=== PATIENT | female | born 1930 | race Caucasian/White ===

== ENCOUNTER 2017-12-18 05:22 | Emergency (ER) | payer OTHER, BC ==
[2017-12-18 06:07] VITALS: TEMP 100; BMI 30.4
--- NOTE | 2017-12-18 06:12 | PDOC ---
History of Present Illness - General History Source: Patient Exam Limitations: No Limitations - History of Present Illness Initial Comments: 12/18/17 06:24 The patient is a 87 year old female with a significant PMH of diabetes, hypertension,COPD, pneumonia, legally blind, leukemia, and mastectomy who presents to the emergency department with persistent wheezing and coughing for 3 days. The patient reports that her coughing and wheezing began on sunday. She states that it is worsened at night. She reports that her cough is productive and she experiences associated chest pain. The patient denies any smoking. She denies any shortness of breath, headache and dizziness. She denies fever, chills, nausea, vomit, diarrhea,constipation or urinary symptoms. The patient denies any other complaints. PCP: Dr. Morgan <Misael Curiel - Last Filed: 12/18/17 06:25> <Thomas Heart - Last Filed: 12/18/17 07:08> - General Chief Complaint: Cold Symptoms Stated Complaint: COUGHING Time Seen by Provider: 12/18/17 06:07 Past History <Misael Curiel - Last Filed: 12/18/17 06:25> - Past Medical History Anemia: No Asthma: No Cancer: Yes (RT BREAST; LEUKEMIA) CVA: No COPD: No CHF: Yes Dementia: No Diabetes: Yes GI Disorders: No Disorders: No HTN: Yes Hypercholesterolemia: Yes Liver Disease: No Seizures: No Thyroid Disease: No - Surgical History Abdominal Surgery: No Appendectomy: No Cardiac Surgery: Yes ("STENT PLACED AND THEN REMOVED") Cholecystectomy: Yes Lung Surgery: No Neurologic Surgery: No Orthopedic Surgery: No - Suicide/Smoking/Psychosocial Hx Smoking Status: No Smoking History: Never smoked Have you smoked in the past 12 months: No Number of Cigarettes Smoked Daily: 0 Hx Alcohol Use: No Drug/Substance Use Hx: No Substance Use Type: None Hx Substance Use Treatment: No <Thomas Heart - Last Filed: 12/18/17 07:08> - Past Medical History Allergies/Adverse Reactions: Allergies Allergy/AdvReac Type Severity Reaction Status Date / Time aspirin Allergy "FACIAL Verified 06/06/16 15:23 SWELLING" Home Medications: Ambulatory Orders Cholecalciferol (Vitamin D3) [Vitamin D3 -] 1,000 unit PO DAILY 12/18/17 Cyanocobalamin (Vitamin B-12) [Vitamin B-12] 1,000 mcg PO DAILY 12/18/17 Furosemide [Lasix] 20 mg PO DAILY 12/18/17 Metformin HCl 500 mg PO DAILY 12/18/17 Metoprolol Tartrate 25 mg PO BID 12/18/17 Simvastatin 40 mg PO DAILY 12/18/17 Review of Systems - Review of Systems Able to Perform ROS?: Yes Comments:: 12/18/17 06:24 Constitutional: No recent illness; no fever ENT: No sore throat Cardiovascular: No palpitations; no chest pain Pulmonary: (+)cough, wheezing . no trouble breathing Gastrointestinal: No nausea; no vomiting; no diarrhea Genitourinary: No urinary problems; no hematuria Skin: No rash Lymph system: No swollen glands Musculoskeletal: No joint swelling Neurological: No weakness; oo numbness; No Headache; no vertigo; no lightheadedness Psychiatric:No anxiety; no depression ROS: A complete review of 10 out of 10 review of systems is taken and is negative apart from what is previously mentioned below and in the HPI. <Misael Curiel - Last Filed: 12/18/17 06:25> *Physical Exam - Vital Signs Last Vital Signs Temp Pulse Resp BP Pulse Ox 100.0 F H 78 19 160/98 99 12/18/17 06:03 12/18/17 06:03 12/18/17 06:03 12/18/17 06:03 12/18/17 06:03 - Physical Exam Comments: 12/18/17 06:24 Vitals: Triage vital signs reviewed General Appearance: No acute distress, well nourished, well developed Chest Wall: Nontender Cardiac: Regular rate and rhythm, no murmurs, no rubs, no gallops Lungs: (+)bilateral and expiratory wheezing, good air movement bilaterally Abdomen: Soft, nondistended, normal bowel sounds, nontender to palpation Genitourinary: Rectal: Exam deferred Extremities: Full range of motion to all extremities, no cyanosis, clubbing, or edema Skin: Warm and dry, no rashes or lesions, no rash, no petechiae Neuro: AOX3; Cranial Nerves 2-12 grossly intact, Strength intact to all extremities, Sensation intact to all extremities, gait normal Psych: Normal mood, normal affect <Misael Curiel - Last Filed: 12/18/17 06:25> - Vital Signs Last Vital Signs Temp Pulse Resp BP Pulse Ox 100.0 F H 78 19 160/98 99 12/18/17 06:03 12/18/17 06:03 12/18/17 06:03 12/18/17 06:03 12/18/17 06:03 <Thomas Heart - Last Filed: 12/18/17 07:08> Heart Score/ECG Review - ECG Impressions Comment:: 12/18/17 07:03 EKG performed at 6:17 AM. Demonstrates sinus rhythm [address] elevations no T-wave inversions. Interpreted by me. <Thomas Heart - Last Filed: 12/18/17 07:08> ED Treatment Course - LABORATORY CBC & Chemistry Diagram: 12/18/17 06:44 12/18/17 06:44 <Thomas Heart - Last Filed: 12/18/17 07:08> Medical Decision Making - Medical Decision Making 12/18/17 06:25 The patient is a 87 year old female with a significant PMH of diabetes, hypertension,COPD, pneumonia, legally blind, leukemia, and mastectomy who presents to the emergency department with persistent wheezing and coughing for 3 days. The patient reports that her coughing and wheezing began on sunday. She states that it is worsened at night. She reports that her cough is productive and she experiences associated chest pain. The patient denies any smoking. She denies any shortness of breath, headache and dizziness. She denies fever, chills, nausea, vomit, diarrhea,constipation or urinary symptoms. The patient denies any other complaints. The patient will get bloodwork, EKG, and breathing treatment <Misael Curiel - Last Filed: 12/18/17 06:25> - Medical Decision Making History and examination consistent with wheezy bronchitis. Given age and risk factors we'll check an EKG troponin treatment DuoNeb's obtain a chest x-ray observe and reassess Dr. Block to follow-up results reassess patient and dispo, signout 7 AM. <Thomas Heart - Last Filed: 12/18/17 07:08> *DC/Admit/Observation/Transfer - Attestations Scribe Attestion: 12/18/17 06:25 Documentation prepared by Misael Curiel, acting as medical office technology instructor for Thomas Heart MD. <Misael Curiel - Last Filed: 12/18/17 06:25> - Discharge Dispostion Decision to Admit order: No <Thomas Heart - Last Filed: 12/18/17 07:08> Diagnosis at time of Disposition: Wheezing - Discharge Dispostion Condition at time of disposition: Stable - Referrals Referrals: Wilbert Morgan MD [Primary Care Provider] - - Patient Instructions - Post Discharge Activity
[2017-12-18] MEDS ORDERED: ALBUTEROL SO4 2.5/IPRATROPIUM 0.5 INH SOL 3 ML VIAL.NEB. NEB ONE ×2 (06:31→06:48)
[2017-12-18 07:03] LABS: BASO % 0.4 % (0-2.0); EOS % 0.3 % (0-4.5); HEMATOCRIT 38.8 % (32.4-45.2); HEMOGLOBIN 12.8 GM/dL (10.7-15.3); LYMPH % 68.6 % (8-40); MCH 29.9 pg (25.7-33.7); MCHC 32.9 g/dl (32.0-36.0); MEAN CELL VOLUME 90.9 fl (80-96); MONO % 2.4 % (3.8-10.2); NEUT % 28.3 % (42.8-82.8); PLATELET COUNT 162 K/MM3 (134-434); RBC 4.26 M/mm3 (3.60-5.2); WHITE BLOOD COUNT 19.5 K/mm3 (4.0-10.0)
[2017-12-18 07:29] LABS: ANION GAP 7 (8-16); BLOOD UREA NITROGEN 18 mg/dL (7-18); CALCIUM 8.9 mg/dL (8.5-10.1); CHLORIDE 105 mmol/L (98-107); CO2 26 mmol/L (21-32); GLUCOSE,RANDOM 141 mg/dL (74-106); POTASSIUM 4.4 mmol/L (3.5-5.1); SODIUM 138 mmol/L (136-145)
[2017-12-18 07:35] LABS: CREATININE 1.1 mg/dL (0.55-1.02)
--- NOTE | 2017-12-18 08:50 | PDOC ---
*Physical Exam - Vital Signs Last Vital Signs Temp Pulse Resp BP Pulse Ox 100.0 F H 78 19 160/98 99 12/18/17 06:03 12/18/17 06:03 12/18/17 06:03 12/18/17 06:03 12/18/17 06:03 - Physical Exam Comments: 12/18/17 08:45 Temp 98.6, O2 sat 100% on room air Seated comfortably in chair, ambulating around the emergency room, speaking full sentences, no acute distress. Very well-appearing, younger than stated age Left eye glaucoma Lungs are clear, wheezing has resolved, good air entry without accessory muscle use, no focally decreased breath sounds or prolonged expiration ED Treatment Course - LABORATORY CBC & Chemistry Diagram: 12/18/17 06:44 12/18/17 06:44 - ADDITIONAL ORDERS Additional order review: Laboratory Results 12/18/17 06:44 Sodium 138 Potassium 4.4 Chloride 105 Carbon Dioxide 26 Anion Gap 7 L BUN 18 Creatinine 1.1 H Random Glucose 141 H Calcium 8.9 Troponin I < 0.02 12/18/17 06:44 RBC 4.26 D MCV 90.9 MCHC 32.9 RDW 14.0 D MPV 9.0 Neutrophils % 28.3 L D Lymphocytes % 68.6 H D Monocytes % 2.4 L Eosinophils % 0.3 D Basophils % 0.4 - Medications Given in the ED: ED Medications Discontinued Medications Generic Name Dose Route Start Last Admin Trade Name Freq PRN Reason Stop Dose Admin Albuterol/Ipratropium 1 amp 12/18/17 06:31 12/18/17 06:51 Duoneb - NEB 12/18/17 06:32 1 amp ONCE ONE Administration Medical Decision Making - Medical Decision Making 12/18/17 08:46 87-year-old female with history of COPD and episodes of pneumonia presents with URI symptoms for 3 days consisting of nasal rhinorrhea, sneezing, nonproductive cough with some wheezing at night. No fevers or chills, no dyspnea, no chest pain. She was mostly frustrated with her cough keeping her up at night so she presented today for evaluation. Evaluated by prior shift, CBC notable for white count of 19, but this is her baseline given her leukemia. Chemistry are within normal limits including troponin. Chest x-ray is negative for acute infiltrate. The patient was treated with a nebulizer and feels much better, her wheezing has resolved. Given her normal vital signs, improved state, and baseline well- appearing with baseline labs, patient prefers to go home and is a candidate for outpatient treatment. Given her history of pneumonias Will treat empirically with a Z-Carlos, will give Medrol Dosepak given the wheezing and history of COPD and presumed diagnosis of viral URI with mild COPD exacerbation. Patient sees Dr. Morgan, will be able to follow-up with him later this week, and understands strict return criteria. *DC/Admit/Observation/Transfer Diagnosis at time of Disposition: Wheezing, Viral upper respiratory infection, COPD exacerbation - Discharge Dispostion Disposition: HOME Condition at time of disposition: Improved - Prescriptions Prescriptions: Azithromycin [Zithromax 250mg Tablets -] 250 mg PO UTDICT #6 tab Benzonatate [Tessalon Pearls -] 100 mg PO TID PRN #10 capsule PRN Reason: Cough Methylprednisolone [Medrol Dose Carlos] 4 mg PO ASDIR #21 tablet - Referrals Referrals: Wilbert Morgan MD [Primary Care Provider] - - Patient Instructions Printed Discharge Instructions: DI for Viral Upper Respiratory Infection -- Adult, DI for Acute Bronchitis Additional Instructions: Activity as tolerated. Stay hydrated. Blood tests and a chest x-ray showed no acute abnormalities. Your symptoms are likely due to a viral infection with a slight worsening of her COPD. Take a Z- Carlos as prescribed as an antibiotic, take Medrol Dosepak as prescribed as a steroid. Take Tessalon Perles as prescribed as a cough suppressant, you do not need to take this if it doesn't work. Continue your medications as previously prescribed by your physician. You should follow up with Dr. Morgan as soon as possible and by Sunday at the latest regarding today's emergency department visit. Return to the emergency department for any new or concerning symptoms, particularly fevers or chills, worsening cough or difficulty breathing or lung pain, chest pain, weakness. - Post Discharge Activity
[2017-12-18 08:57] VITALS: BP 159/90; PULSE 85
[2017-12-18 10:44] LABS: PLATELET ESTIMATE NORMAL
--- NOTE | 2017-12-18 12:14 | EKG ---
Test Reason : Blood Pressure : / mmHG Vent. Rate : 084 BPM Atrial Rate : 084 BPM P-R Int : 156 ms QRS Dur : 072 ms QT Int : 376 ms P-R-T Axes : 051 -09 024 degrees QTc Int : 444 ms NORMAL SINUS RHYTHM CANNOT RULE OUT INFERIOR INFARCT , AGE UNDETERMINED ABNORMAL ECG WHEN COMPARED WITH ECG OF 08-JUN-2016 07:10, NO SIGNIFICANT CHANGE WAS FOUND Confirmed by MD GEENA, LEE ([id number]) on 12/18/2017 12:14:21 PM Referred By: Confirmed By:LEE SEAY MD
== END 2017-12-18 08:57 | disposition home or self-care (01) ==
LOC: JER 05:22
PROC: 3E0F7GC Introduction of Other Therapeutic Substance into Respiratory Tract, Via Natural or Artificial Opening (ICD-10-PCS; principal; 2017-12-18)
DX: J44.1 Chronic obstructive pulmonary disease with (acute) exacerbation (principal); J06.9 Acute upper respiratory infection, unspecified; B97.89 Other viral agents as the cause of diseases classified elsewhere; I10 Essential (primary) hypertension; E78.00 Pure hypercholesterolemia, unspecified; E11.9 Type 2 diabetes mellitus without complications; Z79.84 Long term (current) use of oral hypoglycemic drugs; Z85.6 Personal history of leukemia; Z85.3 Personal history of malignant neoplasm of breast; Z90.11 Acquired absence of right breast and nipple
CPT/HCPCS: 36415; 71046-TC-FY; 80048; 84484; 85025; 93005; 93010; 94640; 99282-25; J7620

== ENCOUNTER 2018-04-07 13:03 | Emergency (ER) | payer OTHER, BC ==
[2018-04-07 13:12] VITALS: TEMP 98.2; BMI 30.9
[2018-04-07 14:35] LABS: BASO % 0.3 % (0-2.0); EOS % 0.2 % (0-4.5); HEMATOCRIT 38.8 % (32.4-45.2); LYMPH % 79.7 % (8-40); MCH 30.6 pg (25.7-33.7); MCHC 33.4 g/dl (32.0-36.0); MEAN CELL VOLUME 91.8 fl (80-96); MEAN PLT VOLUME 9.9 fl (7.5-11.1); MONO % 1.8 % (3.8-10.2); PLATELET COUNT 176 K/MM3 (134-434); RBC 4.23 M/mm3 (3.60-5.2); RDW 14.1 % (11.6-15.6); WHITE BLOOD COUNT 16.7 K/mm3 (4.0-10.0)
--- NOTE | 2018-04-07 14:49 | PDOC ---
Attending Attestation - Resident Resident Name: Atilio Echevarria - ED Attending Attestation I have performed the following: I have examined & evaluated the patient, The case was reviewed & discussed with the resident, I agree w/resident's findings & plan, Exceptions are as noted - HPI HPI: 04/07/18 14:45 88-year-old female history of CLL hypertension hyperlipidemia and ureteral stent which was removed prior breast cancer here today complaining of hematuria patient does report mild dysuria has had urinary tract infections however this does not feel severe denies any melena has a history of a prior hysterectomy and no vaginal bleeding. No fevers no chills does not feel lightheaded no back pain that is new or different patient had seen Dr. Wing Hull in the past for her ureteral stent which was removed following in [place] because it had migrated 04/07/18 14:50 - Physicial Exam PE: 04/07/18 14:46 Awake alert no acute distress lungs are clear bilaterally heart is regular without any murmurs rubs or gallops abdomen is soft nontender no CVA tenderness extremities are warm and well-perfused no rash no peripheral edema neurologically patient is alert and oriented 3. 4 extremities speech is clear distally the patient has 2+ symmetric radial and lower extremity pulses - Medical Decision Making 04/07/18 14:47 Differential diagnosis includes UTI, other bladder pathology such as bladder CA , renal cysts, renal colic, anemia, aortic pathology. Plan UA urine culture CBC CMP Focus ED ultrasound renal and aorta were performed indication hematuria Bilateral kidneys scanned into planes. There was bilateral mild hydronephrosis noted bladder was nondistended no wall thickening no masses or intra-vesicular echoes noted. focused ED us Aorta Aorta was scanned in both transverse and longitudinal planes using curvilinear probe. measurements taken of the proximal mid and distal aorta. All measurements were less than 3 cm Impression mild bilateral hydronephrosis, nondistended bladder, no aortic aneurysm
[2018-04-07 15:02] LABS: URINE APPEARANCE CLEAR; URINE BILIRUBIN NEGATIVE (<2.0 mg/dL); URINE GLUCOSE (UA) NEGATIVE (NEGATIVE); URINE KETONE NEGATIVE (NEGATIVE); URINE NITRITE NEGATIVE (NEGATIVE); URINE UROBILINOGEN NEGATIVE mg/dL (0.2-1.0)
[2018-04-07 15:14] LABS: URINE COLOR YELLOW; URINE LEUK ESTERASE 1+ (NEGATIVE); URINE PROTEIN 1+ (NEGATIVE)
[2018-04-07 15:15] LABS: ALK PHOS 72 U/L (45-117); ANION GAP 5 MMOL/L (8-16); BILIRUBIN,TOTAL 0.5 mg/dL (0.2-1); BLOOD UREA NITROGEN 26 mg/dL (7-18); CALCIUM 8.8 mg/dL (8.5-10.1); CHLORIDE 100 mmol/L (98-107); CO2 30 mmol/L (21-32); CREATININE 1.2 mg/dL (0.55-1.3); GLUCOSE,RANDOM 133 mg/dL (74-106); POTASSIUM 4.3 mmol/L (3.5-5.1); SGOT/AST 28 U/L (15-37); SGPT/ALT 19 U/L (13-61); SODIUM 135 mmol/L (136-145); TOT PROT 7.5 g/dl (6.4-8.2)
[2018-04-07 15:24] LABS: URINE BACTERIA MANY /hpf (NONE SEEN)
[2018-04-07 16:49] LABS: ANISOCYTOSIS 0; MACROCYTOSIS 0
[2018-04-07 16:55] LABS: PLATELET ESTIMATE ADEQUATE
--- NOTE | 2018-04-07 17:39 | PDOC ---
History of Present Illness - General Chief Complaint: Urinary Problem Stated Complaint: BLOOD IN URINE Time Seen by Provider: 04/07/18 13:27 Past History - Past Medical History Allergies/Adverse Reactions: Allergies Allergy/AdvReac Type Severity Reaction Status Date / Time aspirin Allergy "FACIAL Verified 04/07/18 13:12 SWELLING" Home Medications: Ambulatory Orders Cholecalciferol (Vitamin D3) [Vitamin D3 -] 1,000 unit PO DAILY 12/18/17 Cyanocobalamin (Vitamin B-12) [Vitamin B-12] 1,000 mcg PO DAILY 12/18/17 Furosemide [Lasix] 40 mg PO DAILY 12/18/17 Metoprolol Tartrate 25 mg PO BID 12/18/17 Simvastatin 40 mg PO DAILY 12/18/17 metFORMIN HCL [Metformin HCl] 500 mg PO DAILY 12/18/17 Anemia: No Asthma: No Cancer: Yes (leukemia and right breast) CVA: No COPD: No CHF: Yes DVT: No Dementia: No Diabetes: Yes GI Disorders: No Disorders: No HTN: Yes Hypercholesterolemia: Yes Liver Disease: No Seizures: No Thyroid Disease: No Other medical history: chronic leukemia and legally blind - Surgical History Abdominal Surgery: No Appendectomy: No Cardiac Surgery: Yes ("STENT PLACED AND THEN REMOVED") Cholecystectomy: Yes Lung Surgery: No Neurologic Surgery: No Orthopedic Surgery: No - Suicide/Smoking/Psychosocial Hx Smoking Status: No Smoking History: Never smoked Have you smoked in the past 12 months: No Number of Cigarettes Smoked Daily: 0 Hx Alcohol Use: No Drug/Substance Use Hx: No Substance Use Type: None Hx Substance Use Treatment: No *Physical Exam - Vital Signs Last Vital Signs Temp Pulse Resp BP Pulse Ox 98.2 F 82 18 146/80 99 04/07/18 13:09 04/07/18 13:09 04/07/18 13:09 04/07/18 13:09 04/07/18 13:09 ED Treatment Course - LABORATORY CBC & Chemistry Diagram: 04/07/18 14:10 04/07/18 13:48 - ADDITIONAL ORDERS Additional order review: Laboratory Results 04/07/18 04/07/18 14:10 13:48 Sodium 135 L Potassium 4.3 Chloride 100 Carbon Dioxide 30 Anion Gap 5 L BUN 26 H Creatinine 1.2 Creat Clearance w eGFR 42.30 Random Glucose 133 H Calcium 8.8 Total Bilirubin 0.5 AST 28 ALT 19 Alkaline Phosphatase 72 Total Protein 7.5 Albumin 4.0 Urine Color Yellow Urine Appearance Clear Urine pH 6.0 Ur Specific [place] 1.003 Urine Protein 1+ H Urine Glucose (UA) Negative Urine Ketones Negative Urine Blood 3+ H Urine Nitrite Negative Urine Bilirubin Negative Urine Urobilinogen Negative Ur Leukocyte Esterase 1+ H Urine WBC (Auto) 11 Urine RBC (Auto) 7 Urine Bacteria Many 04/07/18 14:10 RBC 4.23 MCV 91.8 MCHC 33.4 RDW 14.1 MPV 9.9 Neutrophils % 18.0 L D Lymphocytes % 79.7 H Monocytes % 1.8 L Eosinophils % 0.2 Basophils % 0.3 - RADIOLOGY Radiology Studies Ordered: Category Date Time Status SPIRAL- RENAL-STONE CT [CT] Stat CT Scan 04/07/18 14:13 Completed *DC/Admit/Observation/Transfer Diagnosis at time of Disposition: Hematuria, undiagnosed cause - Discharge Dispostion Disposition: HOME Condition at time of disposition: Good Decision to Admit order: No - Referrals Referrals: Wilbert Morgan MD [Primary Care Provider] - Vangie Lee MD [Staff Physician] - - Patient Instructions Printed Discharge Instructions: DI for Hematuria Additional Instructions: Your urine did not show an obvious infection. Dr. Navarro would like you to follow up with Dr. Lee tomorrow morning (Sunday, Apr 08, 2018) at 9am. Please drink a lot of water. Take all of your home medications as prescribed. No changes have been made in your regimen. Go the nearest emergency department if your condition worsens or you feel like you need additional emergency evaluation. Print Language: KITTITIAN - Post Discharge Activity
[2018-04-07 18:44] VITALS: BP 142/78; PULSE 81
== END 2018-04-07 18:00 | disposition home or self-care (01) ==
LOC: JER 13:03
DX: N13.30 Unspecified hydronephrosis (principal); R30.0 Dysuria; I11.0 Hypertensive heart disease with heart failure; I50.9 Heart failure, unspecified; E11.9 Type 2 diabetes mellitus without complications; Z79.84 Long term (current) use of oral hypoglycemic drugs; E78.00 Pure hypercholesterolemia, unspecified; Z85.3 Personal history of malignant neoplasm of breast; Z85.6 Personal history of leukemia; H54.8 Legal blindness, as defined in USA
CPT/HCPCS: 36415; 74176; 80053; 81003; 81015; 85025; 87086; 87186; 99283-25

== ENCOUNTER 2018-08-22 13:03 | Inpatient (IN) | payer OTHER, BC ==
--- NOTE | 2018-08-22 13:24 | PDOC ---
History of Present Illness - General Chief Complaint: Nausea/Vomiting Stated Complaint: SOB/VOMITING/COUGHING Time Seen by Provider: 08/22/18 13:24 History Source: Patient Exam Limitations: No Limitations - History of Present Illness Initial Comments: 08/22/18 13:26 This is an 88 yo F with PMH of HTN, HLD, IDDM, ODALIS, breast ca s/p mastectomy, HFPEF, CLL, Nephrolithiasis s/p left urethral stent, legally blind, who presents due to sob since last night. symptoms began yesterday morning with a dry cough and progressed to severe cough overnight with sob, wheezing, causing patient to have 1 episode of nbnb vomiting. She is typically NYHA 2-3 but overnight has been NYHA 4. she also experienced several episodes of watery diarrhea. She has associated subjective fever as well as rhinorrhea, h/a and posterior neck pain. SHe denies cp, palpitations, weight gain, peripheral edema , dysuria, abd pain, melena, hematochezia. O2 sat on RA 91% PCP: [facility] Urologist: Jesus 08/22/18 13:52 08/22/18 14:05 Past History - Past Medical History Allergies/Adverse Reactions: Allergies Allergy/AdvReac Type Severity Reaction Status Date / Time aspirin Allergy "FACIAL Verified 08/22/18 13:09 SWELLING" Home Medications: Ambulatory Orders Cholecalciferol (Vitamin D3) [Vitamin D3 -] 1,000 unit PO DAILY 12/18/17 Cyanocobalamin (Vitamin B-12) [Vitamin B-12] 1,000 mcg PO DAILY 12/18/17 Furosemide [Lasix] 40 mg PO DAILY 12/18/17 Metoprolol Tartrate 25 mg PO BID 12/18/17 Simvastatin 40 mg PO DAILY 12/18/17 metFORMIN HCL [Metformin HCl] 500 mg PO DAILY 12/18/17 Anemia: No Asthma: No Cancer: Yes (leukemia and right breast) CVA: No COPD: No CHF: Yes DVT: No Dementia: No Diabetes: Yes GI Disorders: No Disorders: No HTN: Yes Hypercholesterolemia: Yes Liver Disease: No Seizures: No Thyroid Disease: No - Surgical History Abdominal Surgery: No Appendectomy: No Cardiac Surgery: Yes ("STENT PLACED AND THEN REMOVED") Cholecystectomy: Yes Lung Surgery: No Neurologic Surgery: No Orthopedic Surgery: No - Suicide/Smoking/Psychosocial Hx Smoking Status: No Smoking History: Never smoked Have you smoked in the past 12 months: No Number of Cigarettes Smoked Daily: 0 Information on smoking cessation initiated: No Hx Alcohol Use: No Drug/Substance Use Hx: No Substance Use Type: None Hx Substance Use Treatment: No Review of Systems - Review of Systems Able to Perform ROS?: Yes Is the patient limited Bhutanese proficient: No Constitutional: Yes: Fever, Malaise, Weakness. No: Chills HEENTM: Yes: Nose Congestion. No: Tinnitus, Throat Pain Respiratory: Yes: Cough, Shortness of Breath, SOB with Exertion, SOB at Rest, Wheezing. No: Orthopnea, Productive cough, Hemoptysis Cardiac (ROS): No: Chest Pain, Edema, Irregular Heart Rate, Lightheadedness, Palpitations, Syncope ABD/GI: Yes: Diarrhea, Poor Appetite, Vomiting. No: Abdominal Distended, Constipated, Difficulty Swallowing, Nausea, Abdominal cramping : No: Dysuria Musculoskeletal: Yes: Neck Pain. No: Back Pain Neurological: Yes: Headache. No: Numbness, Paresthesia *Physical Exam - Vital Signs Last Vital Signs Temp Pulse Resp BP Pulse Ox 96.0 F L 111 H 18 125/54 L 100 08/22/18 13:07 08/22/18 13:07 08/22/18 13:07 08/22/18 13:08/22/18 13:07 - Physical Exam General Appearance: Yes: Nourished, Appropriately Dressed, Mild Distress. No: Disheveled HEENT: positive: EOMI, Nasal Congestion, Rhinorrhea. negative: EBONY (L eye obstructed by glaucoma ), Normal Voice (interrupted speech due to sob), Scleral Icterus (R), Scleral Icterus (L), Sinus Tenderness Neck: positive: Tender (posterior ), Trachea midline, Supple. negative: Decreased range of motion, Lymphadenopathy (R), Lymphadenopathy (L) Respiratory/Chest: negative: Lungs Clear, Normal Breath Sounds (diffusely restricted breath sounds with end expiratory wheezing ), Wheezing Cardiovascular: positive: Regular Rhythm, S1, S2, Tachycardia. negative: Edema , JVD Gastrointestinal/Abdominal: positive: Tender (LUQ,mild ), Flat, Soft, Decreased BS. negative: Distended, Guarding, Mass Musculoskeletal: positive: CVA Tenderness (L) (mild) Integumentary: positive: Dry, Warm Neurologic: positive: catechist II-XII NML intact (grossly ), Fully Oriented, Alert Moderate Sedation - Procedure Monitoring Vital Signs: Procedure Monitoring Vital Signs Temperature 96.0 F L 08/22/18 13:07 Pulse Rate 111 H 08/22/18 13:07 Respiratory Rate 18 08/22/18 13:07 Blood Pressure 125/54 L 08/22/18 13:07 O2 Sat by Pulse Oximetry (%) 100 08/22/18 13:07 ED Treatment Course - LABORATORY CBC & Chemistry Diagram: 08/22/18 13:57 08/22/18 13:57 - RADIOLOGY Radiology Studies Ordered: 08/22/18 15:01 clinical picture consistent with sepsis, source possible flu, pna, gi, gu, possible superimposed chf exacerbation ekg sinus tach 108 nonspecific t changes, no evidence of acs 08/22/18 15:20 leukocytosis Flu A +, giving IVF, tamifly, tylenol 08/22/18 15:26 BNP at baseline. CMP consistent with mild volume contraction 08/22/18 16:01 cxr no focal infiltrate or volume overload, renal US no evidence of obstruction admitting to [facility] for sepsis secondary to influenza A *DC/Admit/Observation/Transfer Diagnosis at time of Disposition: Influenza A, Viral upper respiratory infection, Diastolic CHF, acute, Wheezing Sepsis Qualifiers: Sepsis type: sepsis due to unspecified organism Qualified Code(s): A41.9 - Sepsis, unspecified organism HLD (hyperlipidemia) Qualifiers: Hyperlipidemia type: unspecified Qualified Code(s): E78.5 - Hyperlipidemia, unspecified HTN (hypertension) Qualifiers: Hypertension type: essential hypertension Qualified Code(s): I10 - Essential ( primary) hypertension Diabetes Qualifiers: Diabetes mellitus type: type 2 Diabetes mellitus commercial announcer insulin use: without group home use Diabetes mellitus complication status: with unspecified complications Qualified Code(s): E11.8 - Type 2 diabetes mellitus with unspecified complications - Discharge Dispostion Decision to Admit order: Yes - Referrals - Patient Instructions - Post Discharge Activity
[2018-08-22] MEDS ORDERED: ALBUTEROL SO4 2.5/IPRATROPIUM 0.5 INH SOL 3 ML VIAL.NEB. NEB ONE ×3 (13:50→14:49)
[2018-08-22] MEDS ORDERED: ACETAMINOPHEN 1000 MG/100 ML VIAL (NON FORMULARY) IVPB ONE (14:44)
[2018-08-22] MEDS ORDERED: SODIUM CHLORIDE 0.9% 1000 ML INFUS.BAG IV ONE (14:44)
[2018-08-22 14:48] LABS: BASO % 0.5 % (0-2.0); EOS % 0.1 % (0-4.5); HEMATOCRIT 36.3 % (32.4-45.2); HEMOGLOBIN 12.2 GM/dL (10.7-15.3); LYMPH % 52.8 % (8-40); MCH 30.4 pg (25.7-33.7); MCHC 33.6 g/dl (32.0-36.0); MEAN CELL VOLUME 90.4 fl (80-96); MEAN PLT VOLUME 9.2 fl (7.5-11.1); MONO % 2.1 % (3.8-10.2); NEUT % 44.5 % (42.8-82.8); PLATELET COUNT 180 K/MM3 (134-434); RBC 4.01 M/mm3 (3.60-5.2); RDW 13.6 % (11.6-15.6); WHITE BLOOD COUNT 16.4 K/mm3 (4.0-10.0)
[2018-08-22] MEDS ORDERED: ACETAMINOPHEN INJECTION 100 ML IVPB ONE (14:50)
[2018-08-22 14:58] LABS: VENOUS PH 7.43 (7.32-7.42); VENOUS PO2 23.1 mmHg (28-48)
[2018-08-22] MEDS ORDERED: OSELTAMIVIR PHOSPHATE 75 MG CAPSULE PO ONE (15:08)
[2018-08-22 15:22] LABS: ALBUMIN 3.5 g/dl (3.4-5.0); ALK PHOS 94 U/L (45-117); ANION GAP 10 MMOL/L (8-16); BILIRUBIN,TOTAL 0.6 mg/dL (0.2-1); BLOOD UREA NITROGEN 17 mg/dL (7-18); CALCIUM 8.4 mg/dL (8.5-10.1); CHLORIDE 99 mmol/L (98-107); CO2 26 mmol/L (21-32); CREATININE 1.2 mg/dL (0.55-1.3); GLUCOSE,RANDOM 174 mg/dL (74-106); LIPASE 149 U/L (73-393); N-TERMINAL BNP 859.8 pg/ml (5-450); POTASSIUM 4.2 mmol/L (3.5-5.1); SGOT/AST 17 U/L (15-37); SGPT/ALT 18 U/L (13-61); SODIUM 135 mmol/L (136-145); TOT PROT 6.7 g/dl (6.4-8.2)
[2018-08-22] MEDS ORDERED: OSELTAMIVIR PHOSPHATE 75 MG CAPSULE ONE (15:28)
--- NOTE | 2018-08-22 15:30 | PDOC ---
Attending Attestation - HPI HPI: 08/22/18 15:46 The patient is a 88 year old female with PMH of HTN, HLD, IDDM, ODALIS, breast ca s /p mastectomy, HFPEF, CLL, Nephrolithiasis s/p left urethral stent (2016), legally blind, who presenting to [facility] ER via private auto complaining of generalized fatigue, productive cough, wheezing for about a week which has increased over the past few days. The patient denies chest pain, shortness of breath, headache and dizziness. The patient denies fever, chills, nausea, vomit, diarrhea and constipation. The patient denies dysuria, frequency, urgency. PCP: [facility] Urologist: Jesus, has not followed up in 2 years Allergies: aspirin - Physicial Exam PE: 08/22/18 15:46 Vitals: Triage vital signs reviewed General Appearance: No acute distress, well nourished, well developed Head: Atraumatic Eyes: Pupils equal reactive round, extraocular movement intact Neck: Supple; No nuchal rigidity Chest Wall: Nontender Cardiac: Regular rate and rhythm, no murmurs, no rubs, no gallops Lungs: (+) end expiratory wheezes Abdomen: Soft, nondistended, normal bowel sounds, nontender to palpation Extremities: Full range of motion to all extremities, no cyanosis, clubbing, or edema Skin: Warm and dry, no rashes or lesions, no rash, no petechiae Neuro: AOX3; Cranial Nerves 2-12 grossly intact, Strength intact to all extremities, Sensation intact to all extremities, gait normal Psych: Normal mood, normal affect - Medical Decision Making 08/22/18 15:50 Documentation prepared by Jackie Gramajo, acting as pediatric medical assistant for Thomas Heart MD 08/22/18 16:00 Dr. Ventura was paged at this time, awaiting call back <Jackie Gramajo - Last Filed: 08/22/18 16:00> - Resident Resident Name: Bibi Diaz - ED Attending Attestation I have performed the following: I have examined & evaluated the patient, The case was reviewed & discussed with the resident, I agree w/resident's findings & plan, Exceptions are as noted - Medical Decision Making The patient is a 88 year old female with PMH of HTN, HLD, IDDM, ODALIS, breast ca s /p mastectomy, HFPEF, CLL, Nephrolithiasis s/p left urethral stent (2016), legally blind, who presenting to [facility] ER via private auto complaining of generalized fatigue, productive cough, wheezing for about a week which has increased over the past few days. Patient presents to the ED with moderate respiratory distress productive cough wheezing for approximately 1 week Her workup in the ED was notable for elevated white blood cell count and influenza positive a microbiology Given her history of CLL patient is immunocompromised will require Tamiflu per CDC guidelines Given mild respiratory distress requiring nebulizer treatment we will observe overnight for continued nebulizer treatment and further management. <Thomas Heart - Last Filed: 08/22/18 16:50>
[2018-08-22 16:39] LABS: URINE APPEARANCE CLEAR; URINE BILIRUBIN NEGATIVE (<2.0 mg/dL); URINE COLOR YELLOW; URINE GLUCOSE (UA) NEGATIVE (NEGATIVE); URINE KETONE 1+ (NEGATIVE); URINE LEUK ESTERASE 1+ (NEGATIVE); URINE NITRITE NEGATIVE (NEGATIVE); URINE PROTEIN 1+ (NEGATIVE)
[2018-08-22 17:14] LABS: EPI CELLS RARE /HPF (FEW); URINE BACTERIA RARE /hpf (NONE SEEN)
[2018-08-22] MEDS ORDERED: ACETAMINOPHEN 325 MG TABLET (FP) PO PRN (17:51)
--- NOTE | 2018-08-22 17:55 | HP ---
Admitting History and Physical - Primary Care Physician PCP: Wilbert Morgan - Admission Chief Complaint: I'm coughing like crazy History of Present Illness: Ms Webb is a very pleasant 88 year old female who comes in with rhinorrhea x2 days and non-productive cough x1 day. She says that she was in her normal state of health on Sunday, but Sunday she started having a runny nose. She says she did not have a post nasal drip but was blowing her nose constantly. She says this progressed yesterday to a dry hacking cough yesterday. She said she did not cough anything up but she did have one episode of emesis secondary to severe coughing. She had shortness of breath with the coughing. She says she had 2-3 loose stools per day with this as well. She felt feverish last night and had chills. She denies lightheadedness, dizziness, malaise, myalgias, sore throat, chest pain or pressure, nausea, difficulty or pain on urination, or worsening swelling. History Source: Patient Limitations to Obtaining History: No Limitations - Past Medical History Cardiovascular: Yes: HTN, Hyperlipdemia Renal/: Yes: Renal Calculi, UTI Heme/Onc: Yes: Myeloproliferative Synd Endocrine: Yes: Diabetes Mellitus - Past Surgical History Past Surgical History: Yes: Cholecystectomy, Mastectomy - Smoking History Smoking history: Never smoked Have you smoked in the past 12 months: No Aproximately how many cigarettes per day: 0 - Alcohol/Substance Use Hx Alcohol Use: No History of Substance Use: reports: None - Social History Usual Living Arrangement: Yes: Alone ADL: Independent History of Recent Travel: No Home Medications - Allergies Allergies/Adverse Reactions: Allergies Allergy/AdvReac Type Severity Reaction Status Date / Time aspirin Allergy "FACIAL Verified 08/22/18 13:09 SWELLING" - Home Medications Home Medications: Ambulatory Orders Cholecalciferol (Vitamin D3) [Vitamin D3 -] 1,000 unit PO DAILY 12/18/17 Cyanocobalamin (Vitamin B-12) [Vitamin B-12] 1,000 mcg PO DAILY 12/18/17 Furosemide [Lasix] 40 mg PO DAILY 12/18/17 Metoprolol Tartrate 25 mg PO BID 12/18/17 Simvastatin 40 mg PO DAILY 12/18/17 metFORMIN HCL [Metformin HCl] 500 mg PO DAILY 12/18/17 Family Disease History - Family Disease History Family Disease History: CA: Mother, Daughter Review of Systems Findings/Remarks: Full review of systems obtained, as per HPI and otherwise negative. Physical Examination Vital Signs: Vital Signs Temperature 38.8 C H 08/22/18 16:12 Pulse Rate 90 08/22/18 16:12 Respiratory Rate 16 08/22/18 16:12 Blood Pressure 106/72 08/22/18 16:12 O2 Sat by Pulse Oximetry (%) 98 08/22/18 16:12 Constitutional: Yes: Well Nourished, No Distress, Calm Eyes: Yes: Conjunctiva Clear, EOM Intact, PERRL HENT: Yes: Atraumatic, Normocephalic Cardiovascular: Yes: Regular Rate and Rhythm. No: Bradycardia, Gallop, Rub Respiratory: Yes: Regular, On Nasal O2, Wheezes. No: CTA Bilaterally, Rales, Rhonchi, Tachypnea Gastrointestinal: Yes: Normal Bowel Sounds, Soft. No: Distention, Tenderness Extremities: Yes: WNL Edema: No Labs: CBC, BMP 08/22/18 13:57 08/22/18 13:57 Problem List - Problems (1) Influenza A Assessment/Plan: -patient did not receive flu shot this year -positive for influenza A -received tamiflu in the ED -will continue tamiflu 75mg bid for 5 days Code(s): J10.1 - FLU DUE TO OTH IDENT INFLUENZA VIRUS W OTH RESP MANIFEST (2) COPD exacerbation Assessment/Plan: -secondary to tamiflu -oxygen support -will place on prednisone 40mg daily -ezio prn Code(s): J44.1 - CHRONIC OBSTRUCTIVE PULMONARY DISEASE W (ACUTE) EXACERBATION (3) CHF (congestive heart failure) Assessment/Plan: -not in exacerbation -hold lasix, suspect slightly dehydrated -gentle hydration and restart tomorrow Code(s): I50.9 - HEART FAILURE, UNSPECIFIED Qualifiers: Heart failure type: diastolic Heart failure chronicity: chronic Qualified Code(s): I50.32 - Chronic diastolic (congestive) heart failure (4) Diabetes Assessment/Plan: -diabetic diet -continue metformin -expect hyperglycemia with prednisone but this will be temporary Code(s): E11.9 - TYPE 2 DIABETES MELLITUS WITHOUT COMPLICATIONS Qualifiers: Diabetes mellitus type: type 2 Diabetes mellitus group home insulin use: without group home use Diabetes mellitus complication status: with unspecified complications Qualified Code(s): E11.8 - Type 2 diabetes mellitus with unspecified complications (5) HLD (hyperlipidemia) Assessment/Plan: -continue statin Code(s): E78.5 - HYPERLIPIDEMIA, UNSPECIFIED Qualifiers: Hyperlipidemia type: unspecified Qualified Code(s): E78.5 - Hyperlipidemia , unspecified (6) HTN (hypertension) Assessment/Plan: -normotensive currently -will give gentle hydration -can continue metoprolol at this time Code(s): I10 - ESSENTIAL (PRIMARY) HYPERTENSION Qualifiers: Hypertension type: essential hypertension Qualified Code(s): I10 - Essential (primary) hypertension
[2018-08-22] MEDS: predniSONE 20 MG TABLET (UD) PO SCH (18:19)
[2018-08-22] MEDS: SODIUM CHLORIDE 1,000 ML IV SCH (18:19)
[2018-08-22 21:12] LABS: INR 1.14 (0.83-1.09); PROTHROMBIN TIME (PATIENT) 13.5 SEC (9.7-13.0)
[2018-08-22 21:14] LABS: ACTIVATED PTT 24.5 SECONDS (25.2-36.5)
[2018-08-22] MEDS ORDERED: METOPROLOL TARTRATE 25 MG TABLET (FP) ONE (21:38)
[2018-08-22] MEDS ORDERED: ATORVASTATIN CA 10 MG TABLET (FP) ONE (21:38)
[2018-08-22] MEDS: METOPROLOL TARTRATE 25 MG TABLET (FP) PO SCH (21:45)
[2018-08-22] MEDS: ATORVASTATIN CA 20 MG TABLET (FP) PO SCH (21:45)
[2018-08-23] MEDS: metFORMIN HCL 500 MG TABLET (FP) PO SCH (06:57)
[2018-08-23] MEDS: SODIUM CHLORIDE 1,000 ML IV SCH (06:57)
[2018-08-23] MEDS: ALBUTEROL SO4 2.5/IPRATROPIUM 0.5 INH SOL 3 ML VIAL.NEB. NEB PRN ×2 (07:40→15:30)
[2018-08-23 07:46] LABS: BASO % 0.3 % (0-2.0); HEMATOCRIT 29.9 % (32.4-45.2); HEMOGLOBIN 10.1 GM/dL (10.7-15.3); LYMPH % 67.3 % (8-40); MCH 30.4 pg (25.7-33.7); MCHC 33.8 g/dl (32.0-36.0); MEAN PLT VOLUME 9.2 fl (7.5-11.1); NEUT % 31.4 % (42.8-82.8); PLATELET COUNT 162 K/MM3 (134-434); RBC 3.33 M/mm3 (3.60-5.2); RDW 13.6 % (11.6-15.6); WHITE BLOOD COUNT 13.4 K/mm3 (4.0-10.0)
[2018-08-23 08:20] LABS: ANION GAP 8 MMOL/L (8-16); BLOOD UREA NITROGEN 17 mg/dL (7-18); CHLORIDE 106 mmol/L (98-107); CO2 24 mmol/L (21-32); CREATININE 1.1 mg/dL (0.55-1.3); GLUCOSE,RANDOM 188 mg/dL (74-106); MAGNESIUM 1.9 mg/dL (1.8-2.4); PHOSPHOROUS 2.4 mg/dL (2.5-4.9); POTASSIUM 4.1 mmol/L (3.5-5.1); SODIUM 138 mmol/L (136-145)
[2018-08-23 09:53] LABS: ACANTHOCYTES 0; ANISOCYTOSIS 0; HELMET CELLS 0; HOWELL-JOLLY BODIES 0; MACROCYTOSIS 0; OVALOCYTE 0; ROULEAU 0; SICKELED CELLS 0; TARGET CELLS 0; TEAR DROP CELLS 0; TOXIC GRANULATION 0
[2018-08-23] MEDS ORDERED: PATIENT'S OWN MEDICATION (NON-FORMULARY) (Simvastatin [Simvastatin] 40 MG) PO SCH (10:00)
[2018-08-23] MEDS ORDERED: OSELTAMIVIR PHOSPHATE 75 MG CAPSULE PO SCH (10:00)
[2018-08-23] MEDS: predniSONE 20 MG TABLET (UD) PO SCH (10:10)
[2018-08-23] MEDS: CHOLECALCIFEROL (VITAMIN D3) 1,000 UNIT TABLET (FP) PO SCH (10:10)
[2018-08-23] MEDS: CYANOCOBALAMIN 1,000 MCG TABLET (FP) PO SCH (10:10)
[2018-08-23] MEDS: METOPROLOL TARTRATE 25 MG TABLET (FP) PO SCH (10:10)
[2018-08-23 10:25] LABS: PLATELET ESTIMATE ADEQUATE
--- NOTE | 2018-08-23 13:26 | EKG ---
Test Reason : Blood Pressure : / mmHG Vent. Rate : 108 BPM Atrial Rate : 108 BPM P-R Int : 146 ms QRS Dur : 072 ms QT Int : 334 ms P-R-T Axes : 069 -05 028 degrees QTc Int : 447 ms SINUS TACHYCARDIA LOW VOLTAGE QRS BORDERLINE ECG WHEN COMPARED WITH ECG OF 18-DEC-2017 06:17, NO SIGNIFICANT CHANGE WAS FOUND Confirmed by JESSE GEORGES MD ([id number]) on 08/23/2018 1:25:54 PM Referred By: Confirmed By:JESSE GEORGES MD
--- NOTE | 2018-08-23 15:09 | PN ---
Physical Exam: SUBJECTIVE: Patient seen and examined by me at bedside. Came in for sepsis with flu A positive Reports she feels very dyspneic on exertion, especially when walking to the bathroom Otherwise, denies any chest pain, dysuria, nausea, vomiting, abdominal pain OBJECTIVE: Vital Signs Period Temp Pulse Resp BP Sys/Molina Pulse Ox Last 24 Hr 98 F-103.3 F 87-96 16-24 100-116/51-78 96-99 GENERAL: The patient is awake, alert, and fully oriented, in no acute distress. EYES: Sclera anicteric, conjunctiva clear. ENT: Moist mucous membranes. NECK: (-) JVD LUNGS: Expiratory wheezing throughout lung bases with crackles in bilateral upper bases R>L HEART: Regular rate and rhythm, normal s1 and s2 without murmur, rub or gallop. ABDOMEN: Soft, nontender, nondistended, normoactive bowel sounds, no guarding. EXTREMITIES: No edema. NEUROLOGICAL: No focal deficits. No facial asymmetry. Normal speech Laboratory Results 08/23/18 06:30 08/23/18 06:30 08/23/18 06:30 Phosphorus 2.4 L Magnesium 1.9 Active Medications Generic Name Dose Route Start Last Admin Trade Name Freq PRN Reason Stop Dose Admin Acetaminophen 650 mg 08/22/18 17:51 Tylenol - PO Q4H PRN FEVER Albuterol/Ipratropium 1 amp 08/22/18 17:54 08/23/18 07:40 Duoneb - NEB 1 amp Q6H PRN Administration SHORTNESS OF BREATH Atorvastatin Calcium 20 mg 08/22/18 22:00 08/22/18 21:45 Lipitor - PO 20 mg HS ALYSIA Administration Cholecalciferol 1,000 unit 08/23/18 10:00 08/23/18 10:10 Vitamin D3 - PO 1,000 unit DAILY ALYSIA Administration Cyanocobalamin 1,000 mcg 08/23/18 10:00 08/23/18 10:10 Vitamin B12 - PO 1,000 mcg DAILY ALYSIA Administration Sodium Chloride 1,000 mls @ 50 mls/hr 08/22/18 18:00 08/23/18 06:57 Normal Saline - IV 08/23/18 17:52 50 mls/hr ASDIR ALYSIA Administration Metformin HCl 500 mg 08/23/18 07:00 08/23/18 06:57 Glucophage - PO 500 mg AM ALYSIA Administration Metoprolol Tartrate 25 mg 08/22/18 22:00 08/23/18 10:10 Lopressor - PO 25 mg BID ALYSIA Administration Oseltamivir Phosphate 30 mg 08/23/18 10:00 Tamiflu - PO 08/28/18 09:59 BID ALYSIA Prednisone 40 mg 08/22/18 18:00 08/23/18 10:10 Deltasone - PO 40 mg DAILY ALYSIA Administration IMAGES: Chest X-Ray (08/22/18): No acute pathology Renal U/S (08/22/18): Non obstructing Renal calculi. No hydronephrosis Microbiology 08/22/18 14:06 Blood - Peripheral Venous Blood Culture - Preliminary NO GROWTH OBTAINED AFTER 24 HOURS, INCUBATION TO CONTINUE FOR 4 DAYS. 08/22/18 13:57 Blood - Peripheral Venous Blood Culture - Preliminary NO GROWTH OBTAINED AFTER 24 HOURS, INCUBATION TO CONTINUE FOR 4 DAYS. ASSESSMENT/PLAN: Patient is an 88 year old female who presented to the ED complaining of a two day history of rhinorrhea, non-productive cough associated with shortness of breath, and 3 loose bowel movements. Patient in the ED was found to be septic and flu A positive. Patient admitted for further monitoring and management. Sepsis Secondary to Influenza A -Continue Tamiflu 30mg BID -Will discontinue IV fluids as patient is tolerating po and appreciated crackles on auscultation -Continue Tylenol 650mg PO Q4H PRN -Blood cultures pending Diarrhea -Likely viral with Influenza A -C.Diff ordered -Continue to monitor COPD Exacerbation -Likely secondary to influenza -Will place standing and PRN duonebs -Continue 02 -Continue Prednisone 40mg daily Diastolic CHF -Will resume Lasix home dose today -Daily weights and strict I&O's HTN -Controlled -Continue home medication Lopressor 25mg BID -Continue to monitor BP IDDMII -Continue home medication Metformin 500mg am -ISS -BGM HLD -Continue home medication Lipitor 20mg HS History of Nephrolithiasis -Renal U/S revealed nonobstructing renal calculi F/E/N -Discontinued fluids. Tolerating PO -Electrolytes wnl -Diabetic/Sodium controlled diet Prophylaxis -SCD's for DVT -No GI required Disposition -Full code -Remains dyspneic. -PT to avoid deconditioning Destinee Gould [id number] Visit type - Emergency Visit Emergency Visit: Yes ED Registration Date: 08/22/18 Care time: The patient presented to the Emergency Department on the above date and was hospitalized for further evaluation of their emergent condition. - New Patient This patient is new to me today: Yes Date on this admission: 08/25/18 - Critical Care Critical Care patient: No
--- NOTE | 2018-08-23 17:17 | PN ---
Teaching Attending Note Name of Resident: Destinee Gould ATTENDING PHYSICIAN STATEMENT I saw and evaluated the patient. I reviewed the resident's note and discussed the case with the resident. I agree with the resident's findings and plan as documented. SUBJECTIVE: Ms Webb says her breathing is better today but still with wheezing, shortness of breath, and non-productive cough. No cp or n/v. OBJECTIVE: Last Vital Signs Temp Pulse Resp BP Pulse Ox 36.8 C 90 20 100/51 L 97 08/23/18 10:00 08/23/18 10:00 08/23/18 10:00 08/23/18 10:00 08/23/18 09:00 Gen: nad Pulm: wheezing bilaterally CV: rrr w/o m/r/g Abd: +bs, s/nt/nd Ext: no c/c/e CBC, BMP 08/23/18 06:30 08/23/18 06:30 ASSESSMENT AND PLAN: (1) Influenza A Assessment/Plan: -patient did not receive flu shot this year -positive for influenza A -continue tamiflu 30mg bid, renally dosed Code(s): J10.1 - FLU DUE TO OTH IDENT INFLUENZA VIRUS W OTH RESP MANIFEST (2) COPD exacerbation Assessment/Plan: -secondary to influenza -oxygen support -will place on prednisone 40mg daily -scheduled duonebs -may need IV solumedrol Code(s): J44.1 - CHRONIC OBSTRUCTIVE PULMONARY DISEASE W (ACUTE) EXACERBATION (3) CHF (congestive heart failure) Assessment/Plan: -stop IVF -restart lasix Code(s): I50.9 - HEART FAILURE, UNSPECIFIED Qualifiers: Heart failure type: diastolic Heart failure chronicity: chronic Qualified Code(s): I50.32 - Chronic diastolic (congestive) heart failure (4) Diabetes Assessment/Plan: -diabetic diet -continue metformin -expect hyperglycemia with prednisone but this will be temporary -if placed on solumedrol, will need FSBS and SSI Code(s): E11.9 - TYPE 2 DIABETES MELLITUS WITHOUT COMPLICATIONS Qualifiers: Diabetes mellitus type: type 2 Diabetes mellitus machine long goods helper insulin use: without machine long goods helper use Diabetes mellitus complication status: with unspecified complications Qualified Code(s): E11.8 - Type 2 diabetes mellitus with unspecified complications (5) HLD (hyperlipidemia) Assessment/Plan: -continue statin Code(s): E78.5 - HYPERLIPIDEMIA, UNSPECIFIED Qualifiers: Hyperlipidemia type: unspecified Qualified Code(s): E78.5 - Hyperlipidemia , unspecified (6) HTN (hypertension) Assessment/Plan: -continue metoprolol and restart lasix Code(s): I10 - ESSENTIAL (PRIMARY) HYPERTENSION Qualifiers: Hypertension type: essential hypertension Qualified Code(s): I10 - Essential (primary) hypertension Problem List - Problems (1) Influenza A Code(s): J10.1 - FLU DUE TO OTH IDENT INFLUENZA VIRUS W OTH RESP MANIFEST (2) COPD exacerbation Code(s): J44.1 - CHRONIC OBSTRUCTIVE PULMONARY DISEASE W (ACUTE) EXACERBATION (3) CHF (congestive heart failure) Code(s): I50.9 - HEART FAILURE, UNSPECIFIED Qualifiers: Heart failure type: diastolic Heart failure chronicity: chronic Qualified Code(s): I50.32 - Chronic diastolic (congestive) heart failure (4) Diabetes Code(s): E11.9 - TYPE 2 DIABETES MELLITUS WITHOUT COMPLICATIONS Qualifiers: Diabetes mellitus type: type 2 Diabetes mellitus intermediate insulin use: without intermediate use Diabetes mellitus complication status: with unspecified complications Qualified Code(s): E11.8 - Type 2 diabetes mellitus with unspecified complications (5) HLD (hyperlipidemia) Code(s): E78.5 - HYPERLIPIDEMIA, UNSPECIFIED Qualifiers: Hyperlipidemia type: unspecified Qualified Code(s): E78.5 - Hyperlipidemia , unspecified (6) HTN (hypertension) Code(s): I10 - ESSENTIAL (PRIMARY) HYPERTENSION Qualifiers: Hypertension type: essential hypertension Qualified Code(s): I10 - Essential (primary) hypertension
[2018-08-23] MEDS: OSELTAMIVIR PHOSPHATE 30 MG CAPSULE PO SCH (18:32)
--- NOTE | 2018-08-23 19:50 | CONSULT ---
Consult - text type - Consultation Consultation Note: Patient seen and examined Patient is a 88 year old female with PMH of HTN, HLD, IDDM, ODALIS, breast ca s/p mastectomy, HFPEF, CLL, Nephrolithiasis s/p left urethral stent (2016), legally blind, who presents complaining of generalized fatigue, productive cough, wheezing for about a week which has increased over the past few days. Noted to have influenza A/reactive airway disease On steroids/tamiflu - Past Medical History Cardiovascular: Yes: HTN, Hyperlipdemia Renal/: Yes: Renal Calculi, UTI Heme/Onc: Yes: CLL Endocrine: Yes: Diabetes Mellitus - Past Surgical History Past Surgical History: Yes: Cholecystectomy, Mastectomy - Smoking History Smoking history: Never smoked - Social History Usual Living Arrangement: Yes: Alone ADL: Independent - Allergies Allergies/Adverse Reactions: Allergies Allergy/AdvReac Type Severity Reaction Status Date / Time aspirin Allergy "FACIAL Verified 08/22/18 13:09 SWELLING" - Home Medications Home Medications: Ambulatory Orders Cholecalciferol (Vitamin D3) [Vitamin D3 -] 1,000 unit PO DAILY 12/18/17 Cyanocobalamin (Vitamin B-12) [Vitamin B-12] 1,000 mcg PO DAILY 12/18/17 Furosemide [Lasix] 40 mg PO DAILY 12/18/17 Metoprolol Tartrate 25 mg PO BID 12/18/17 Simvastatin 40 mg PO DAILY 12/18/17 metFORMIN HCL [Metformin HCl] 500 mg PO DAILY 12/18/17 Family Disease History - Family Disease History Family Disease History: CA: Mother, Daughter Review of Systems Findings/Remarks: Full review of systems obtained, as per HPI and otherwise negative. Physical Examination Vital Signs: Last Vital Signs Temp Pulse Resp BP Pulse Ox 97.9 F 72 20 132/76 97 08/24/18 06:00 08/24/18 06:00 08/24/18 06:00 08/24/18 06:00 08/23/18 21:00 Cor: RSR, No murmurs, No gallops Lungs: Clear to P&A Abd: Soft, Normal bowel sounds, No organomegaly Ext:No significant edema Labs/Meds reviewed A/P 88 y/o p atient with HTN/HLD/DM/CLL/influenza A Leukocytosis: Lymphocytosis viral + CLL Monitor On steroids for reactive airway disease
[2018-08-24] MEDS: ALBUTEROL SO4 2.5/IPRATROPIUM 0.5 INH SOL 3 ML VIAL.NEB. NEB PRN (00:06)
[2018-08-24] MEDS: ATORVASTATIN CA 20 MG TABLET (FP) PO SCH ×2 (01:39→21:38)
[2018-08-24] MEDS: OSELTAMIVIR PHOSPHATE 30 MG CAPSULE PO SCH ×3 (01:39→21:38)
[2018-08-24] MEDS: METOPROLOL TARTRATE 25 MG TABLET (FP) PO SCH ×3 (01:40→21:38)
[2018-08-24] MEDS: metFORMIN HCL 500 MG TABLET (FP) PO SCH (06:35)
[2018-08-24] MEDS ORDERED: ALBUTEROL SO4 0.083% IH SOL 2.5 MG/3 ML VIAL.NEB. NEB SCH (08:00)
[2018-08-24 08:23] LABS: HEMATOCRIT 31.5 % (32.4-45.2); HEMOGLOBIN 10.7 GM/dL (10.7-15.3); MCH 30.8 pg (25.7-33.7); MCHC 33.9 g/dl (32.0-36.0); MEAN CELL VOLUME 90.9 fl (80-96); MEAN PLT VOLUME 9.5 fl (7.5-11.1); PLATELET COUNT 152 K/MM3 (134-434); RBC 3.47 M/mm3 (3.60-5.2); RDW 14.2 % (11.6-15.6); WHITE BLOOD COUNT 18.8 K/mm3 (4.0-10.0)
[2018-08-24 09:03] LABS: ALK PHOS 69 U/L (45-117); ANION GAP 9 MMOL/L (8-16); BILIRUBIN,TOTAL 0.4 mg/dL (0.2-1); BLOOD UREA NITROGEN 20 mg/dL (7-18); CALCIUM 8.3 mg/dL (8.5-10.1); CHLORIDE 108 mmol/L (98-107); CO2 23 mmol/L (21-32); GLUCOSE,RANDOM 113 mg/dL (74-106); POTASSIUM 3.8 mmol/L (3.5-5.1); SGOT/AST 20 U/L (15-37); SGPT/ALT 19 U/L (13-61); SODIUM 139 mmol/L (136-145); TOT PROT 5.8 g/dl (6.4-8.2)
[2018-08-24] MEDS ORDERED: PT OWN MED DRAWER 7, Y5N ONE ×2 (09:15→21:29)
[2018-08-24] MEDS: CYANOCOBALAMIN 1,000 MCG TABLET (FP) PO SCH (09:19)
[2018-08-24] MEDS: CHOLECALCIFEROL (VITAMIN D3) 1,000 UNIT TABLET (FP) PO SCH (09:19)
[2018-08-24] MEDS: methylPREDNISolone NA SUCC 40 MG/1 ML VIAL IVPUSH SCH ×3 (11:26→21:38)
[2018-08-24] MEDS: ALBUTEROL SO4 2.5/IPRATROPIUM 0.5 INH SOL 3 ML VIAL.NEB. NEB SCH ×3 (11:46→21:03)
[2018-08-24] MEDS: INSULIN (NOVOLOG) ASPART 100 UNITS/ML 10ML VIAL SQ SCH ×3 (12:09→21:39)
--- NOTE | 2018-08-24 16:33 | PN ---
Progress Note, Physician Chief Complaint: Ms Webb still complains of coughing and difficulty breathing. No cp or n/v. - Current Medication List Current Medications: Active Medications Acetaminophen (Tylenol -) 650 mg PO Q4H PRN PRN Reason: FEVER Albuterol Sulfate (Ventolin 0.083% Nebulizer Soln -) 1 amp NEB Q4H PRN PRN Reason: SHORT OF BREATH/WHEEZING Albuterol/Ipratropium (Duoneb -) 1 amp NEB RQID [facility] Last Admin: 08/24/18 11:46 Dose: 1 amp Atorvastatin Calcium (Lipitor -) 20 mg PO HS [facility] Last Admin: 08/24/18 01:39 Dose: 20 mg Cholecalciferol (Vitamin D3 -) 1,000 unit PO DAILY [facility] Last Admin: 08/24/18 09:19 Dose: 1,000 unit Cyanocobalamin (Vitamin B12 -) 1,000 mcg PO DAILY [facility] Last Admin: 08/24/18 09:19 Dose: 1,000 mcg Ceftriaxone Sodium 1 gm/ (Dextrose) 100 mls @ 200 mls/hr IVPB DAILY [facility]; Protocol Insulin Aspart (Novolog Vial) 0 units SQ ACHS ALYSIA; Protocol Last Admin: 08/24/18 12:09 Dose: Not Given Lactobacillus Acidophilus (Bacid -) 1 tab PO DAILY [facility] Methylprednisolone Sodium Succinate (Solu-Medrol -) 40 mg IVPUSH Q6H-IV ALYSIA Last Admin: 08/24/18 16:10 Dose: 40 mg Metoprolol Tartrate (Lopressor -) 25 mg PO BID [facility] Last Admin: 08/24/18 09:19 Dose: 25 mg Oseltamivir Phosphate (Tamiflu -) 30 mg PO BID [facility] Stop: 08/28/18 09:59 Last Admin: 08/24/18 09:19 Dose: 30 mg - Objective Vital Signs: Vital Signs Temperature 36.8 C 08/24/18 10:00 Pulse Rate 101 H 08/24/18 10:00 Respiratory Rate 20 08/24/18 10:00 Blood Pressure 116/64 08/24/18 10:00 O2 Sat by Pulse Oximetry (%) 94 L 08/24/18 09:00 Constitutional: Yes: Well Nourished, No Distress, Calm Cardiovascular: Yes: Regular Rate and Rhythm, Murmur. No: Gallop, Rub Respiratory: Yes: Regular, On Nasal O2, Wheezes (bilaterally in lung padilla, end expiratory). No: CTA Bilaterally, Rales, Rhonchi Gastrointestinal: Yes: Normal Bowel Sounds, Soft. No: Distention, Tenderness Extremities: Yes: WNL Edema: No Labs: CBC, BMP 08/24/18 06:45 08/24/18 06:45 INR, PTT INR 1.14 (0.83-1.09) H 08/22/18 20:00 Problem List - Problems (1) Influenza A Code(s): J10.1 - FLU DUE TO OTH IDENT INFLUENZA VIRUS W OTH RESP MANIFEST (2) COPD exacerbation Code(s): J44.1 - CHRONIC OBSTRUCTIVE PULMONARY DISEASE W (ACUTE) EXACERBATION (3) CHF (congestive heart failure) Code(s): I50.9 - HEART FAILURE, UNSPECIFIED Qualifiers: Heart failure type: diastolic Heart failure chronicity: chronic Qualified Code(s): I50.32 - Chronic diastolic (congestive) heart failure (4) Diabetes Code(s): E11.9 - TYPE 2 DIABETES MELLITUS WITHOUT COMPLICATIONS Qualifiers: Diabetes mellitus type: type 2 Diabetes mellitus journeyman patternmaker insulin use: without fpc use Diabetes mellitus complication status: with unspecified complications Qualified Code(s): E11.8 - Type 2 diabetes mellitus with unspecified complications (5) HLD (hyperlipidemia) Code(s): E78.5 - HYPERLIPIDEMIA, UNSPECIFIED Qualifiers: Hyperlipidemia type: unspecified Qualified Code(s): E78.5 - Hyperlipidemia , unspecified (6) HTN (hypertension) Code(s): I10 - ESSENTIAL (PRIMARY) HYPERTENSION Qualifiers: Hypertension type: essential hypertension Qualified Code(s): I10 - Essential (primary) hypertension (7) UTI (urinary tract infection) Code(s): N39.0 - URINARY TRACT INFECTION, SITE NOT SPECIFIED Assessment/Plan (1) Influenza A Assessment/Plan: -continue tamiflu renally dosed, day 3 Code(s): J10.1 - FLU DUE TO OTH IDENT INFLUENZA VIRUS W OTH RESP MANIFEST (2) COPD exacerbation Assessment/Plan: -secondary to influenza -oxygen support -increase steroids to solumedrol -continue bronchodilators Code(s): J44.1 - CHRONIC OBSTRUCTIVE PULMONARY DISEASE W (ACUTE) EXACERBATION (3) CHF (congestive heart failure) Assessment/Plan: continue lasix Code(s): I50.9 - HEART FAILURE, UNSPECIFIED Qualifiers: Heart failure type: diastolic Heart failure chronicity: chronic Qualified Code(s): I50.32 - Chronic diastolic (congestive) heart failure (4) Diabetes Assessment/Plan: -place on SSI since now on solumedrol Code(s): E11.9 - TYPE 2 DIABETES MELLITUS WITHOUT COMPLICATIONS Qualifiers: Diabetes mellitus type: type 2 Diabetes mellitus journeyman patternmaker insulin use: without fpc use Diabetes mellitus complication status: with unspecified complications Qualified Code(s): E11.8 - Type 2 diabetes mellitus with unspecified complications (5) HLD (hyperlipidemia) Assessment/Plan: -continue statin Code(s): E78.5 - HYPERLIPIDEMIA, UNSPECIFIED Qualifiers: Hyperlipidemia type: unspecified Qualified Code(s): E78.5 - Hyperlipidemia , unspecified (6) HTN (hypertension) Assessment/Plan: -continue metoprolol and restart lasix Code(s): I10 - ESSENTIAL (PRIMARY) HYPERTENSION Qualifiers: Hypertension type: essential hypertension Qualified Code(s): I10 - Essential (primary) hypertension (7) UTI -last urine culture grew pansensitive ecoli -this urine culture showing gram negative rods -start rocephin -lactobacillus
[2018-08-24] MEDS ORDERED: cefTRIAXone SODIUM 1 GM VIAL ONE (17:27)
[2018-08-24] MEDS ORDERED: DEXTROSE 5%-WATER - 50 ML IVPB ONE (17:28)
[2018-08-24] MEDS: CEFTRIAXONE 1 GM in DEXTROSE 5%-WATER - 50 ML IVPB SCH (17:46)
[2018-08-24] MEDS: LACTOBACILLUS ACIDOPHILUS 1 TABLET PO SCH (17:47)
[2018-08-25] MEDS: methylPREDNISolone NA SUCC 40 MG/1 ML VIAL IVPUSH SCH ×4 (02:41→22:13)
[2018-08-25] MEDS: INSULIN (NOVOLOG) ASPART 100 UNITS/ML 10ML VIAL SQ SCH ×4 (06:36→22:13)
[2018-08-25 07:25] LABS: BASO % 0.2 % (0-2.0); HEMATOCRIT 31.8 % (32.4-45.2); HEMOGLOBIN 10.7 GM/dL (10.7-15.3); LYMPH % 60.3 % (8-40); MCH 30.6 pg (25.7-33.7); MCHC 33.6 g/dl (32.0-36.0); MEAN CELL VOLUME 90.9 fl (80-96); MEAN PLT VOLUME 9.5 fl (7.5-11.1); NEUT % 38.5 % (42.8-82.8); PLATELET COUNT 158 K/MM3 (134-434); RDW 14.1 % (11.6-15.6); WHITE BLOOD COUNT 16.3 K/mm3 (4.0-10.0)
[2018-08-25 07:44] LABS: ANION GAP 6 MMOL/L (8-16); BLOOD UREA NITROGEN 24 mg/dL (7-18); CALCIUM 8.3 mg/dL (8.5-10.1); CHLORIDE 108 mmol/L (98-107); CO2 24 mmol/L (21-32); CREATININE 1.1 mg/dL (0.55-1.3); GLUCOSE,RANDOM 195 mg/dL (74-106); MAGNESIUM 2.4 mg/dL (1.8-2.4); PHOSPHOROUS 3.7 mg/dL (2.5-4.9); POTASSIUM 5.4 mmol/L (3.5-5.1); SODIUM 138 mmol/L (136-145)
[2018-08-25] MEDS: ALBUTEROL SO4 2.5/IPRATROPIUM 0.5 INH SOL 3 ML VIAL.NEB. NEB SCH ×4 (08:26→20:30)
[2018-08-25] MEDS ORDERED: cefTRIAXone SODIUM 1 GM VIAL ONE (09:07)
[2018-08-25] MEDS ORDERED: DEXTROSE 5%-WATER - 50 ML IVPB ONE (09:07)
[2018-08-25] MEDS ORDERED: PT OWN MED DRAWER 7, Y5N ONE ×3 (09:07→22:03)
[2018-08-25] MEDS: CEFTRIAXONE 1 GM in DEXTROSE 5%-WATER - 50 ML IVPB SCH (09:18)
[2018-08-25] MEDS: CYANOCOBALAMIN 1,000 MCG TABLET (FP) PO SCH (09:19)
[2018-08-25] MEDS: OSELTAMIVIR PHOSPHATE 30 MG CAPSULE PO SCH ×2 (09:19→22:13)
[2018-08-25] MEDS: METOPROLOL TARTRATE 25 MG TABLET (FP) PO SCH ×2 (09:19→22:07)
[2018-08-25] MEDS: CHOLECALCIFEROL (VITAMIN D3) 1,000 UNIT TABLET (FP) PO SCH (09:19)
[2018-08-25] MEDS: LACTOBACILLUS ACIDOPHILUS 1 TABLET PO SCH (09:19)
[2018-08-25 12:45] LABS: ANISOCYTOSIS 0; MACROCYTOSIS 0
[2018-08-25 12:47] LABS: PLATELET ESTIMATE ADEQUATE
--- NOTE | 2018-08-25 12:50 | PN ---
Physical Exam: SUBJECTIVE: Patient seen and examined by me at bedside No acute events overnight States her breathing and shortness of breath improved significantly Otherwise, denies any chest pain, dysuria, nausea, vomiting, abdominal pain, chest pain, palpitations, dizziness. OBJECTIVE: Vital Signs Period Temp Pulse Resp BP Sys/Molina Pulse Ox Last 24 Hr 97.4 F-98.2 F 62-75 18-20 113-127/63-77 98 GENERAL: The patient is awake, alert, and fully oriented, in no acute distress. EYES: Sclera anicteric, conjunctiva clear. ENT: Moist mucous membranes. LUNGS: Expiratory wheezing throughout lung bases with mild crackles in bilateral upper bases HEART: Regular rate and rhythm, normal s1 and s2 without murmur, rub or gallop. ABDOMEN: Soft, nontender, nondistended, normoactive bowel sounds, no guarding. EXTREMITIES: No edema. NEUROLOGICAL: No focal deficits. No facial asymmetry. Normal speech Laboratory Results 08/25/18 06:30 08/25/18 06:30 08/25/18 06:30 Phosphorus 3.7 Magnesium 2.4 Active Medications Generic Name Dose Route Start Last Admin Trade Name Freq PRN Reason Stop Dose Admin Acetaminophen 650 mg 08/22/18 17:51 Tylenol - PO Q4H PRN FEVER Albuterol Sulfate 1 amp 08/24/18 08:21 Ventolin 0.083% Nebulizer Soln - NEB Q4H PRN SHORT OF BREATH/WHEEZING Albuterol/Ipratropium 1 amp 08/24/18 12:00 08/25/18 11:21 Duoneb - NEB 1 amp RQID ALYSIA Administration Atorvastatin Calcium 20 mg 08/22/18 22:00 08/24/18 21:38 Lipitor - PO 20 mg HS ALYSIA Administration Cholecalciferol 1,000 unit 08/23/18 10:00 08/25/18 09:19 Vitamin D3 - PO 1,000 unit DAILY ALYSIA Administration Cyanocobalamin 1,000 mcg 08/23/18 10:00 08/25/18 09:19 Vitamin B12 - PO 1,000 mcg DAILY ALYSIA Administration Ceftriaxone Sodium 1 gm/ 50 mls @ 100 mls/hr 08/24/18 16:30 08/25/18 09:18 Dextrose IVPB 100 mls/hr DAILY ALYSIA Administration Protocol Insulin Aspart 0 units 08/24/18 11:00 08/25/18 11:51 Novolog Vial SQ 2 unit ACHS ALYSIA Administration Protocol Lactobacillus Acidophilus 1 tab 08/24/18 16:30 08/25/18 09:19 Bacid - PO 1 tab DAILY ALYSIA Administration Methylprednisolone Sodium Succinate 40 mg 08/24/18 09:00 08/25/18 09:19 Solu-Medrol - IVPUSH 40 mg Q6H-IV ALYSIA Administration Metoprolol Tartrate 25 mg 08/22/18 22:00 08/25/18 09:19 Lopressor - PO 25 mg BID ALYSIA Administration Oseltamivir Phosphate 30 mg 08/23/18 10:00 08/25/18 09:19 Tamiflu - PO 08/28/18 09:59 30 mg BID ALYSIA Administration IMAGES: Chest X-Ray (08/22/18): No acute pathology Renal U/S (08/22/18): Non obstructing Renal calculi. No hydronephrosis Microbiology 08/22/18 15:36 Urine - Urine Clean Catch Urine Culture - Final Klebsiella Pneumoniae Klebsiella Pneumoniae#2 08/22/18 14:06 Blood - Peripheral Venous Blood Culture - Preliminary NO GROWTH OBTAINED AFTER 48 HOURS, INCUBATION TO CONTINUE FOR 3 DAYS. 08/22/18 13:57 Blood - Peripheral Venous Blood Culture - Preliminary NO GROWTH OBTAINED AFTER 48 HOURS, INCUBATION TO CONTINUE FOR 3 DAYS. ASSESSMENT/PLAN: Patient is an 88 year old female who presented to the ED complaining of a two day history of rhinorrhea, non-productive cough associated with shortness of breath, and 3 loose bowel movements. Patient in the ED was found to be septic and flu A positive. Patient admitted for further monitoring and management. Sepsis Secondary to Influenza A -Continue Tamiflu 30mg BID (Day #3) -Continue Tylenol 650mg PO Q4H PRN -Blood cultures negative -Continue Supportive care COPD Exacerbation -Likely secondary to influenza -Continue Duo-Neb QID and albuterol PRN -Continue Solu-medrol 40mg Q6H IVPB -Continue 02 and maintain 02 >95% Urinary Tract Infection -Urine cultures positive for Klebsiella -Continue Ceftriaxone 1gm daily (Day #2) -Continue Probiotic Diarrhea -Likely viral with Influenza A -No further episodes of diarrhea -Continue to monitor History of CLL -Follows Dr. Ventura as outpatient -Consult placed and recommended to monitor patient and continue medical management. Diastolic CHF -Continue Lasix 40mg daily -Continue Metroprolol 25mg BID -Daily weights and strict I&O's HTN -Controlled -Continue home medication Lopressor 25mg BID -Continue to monitor BP IDDMII -Continue home medication Metformin 500mg am -ISS -BGM HLD -Continue home medication Lipitor 20mg HS History of Nephrolithiasis -Renal U/S revealed nonobstructing renal calculi F/E/N -Discontinued fluids. Tolerating PO -Electrolytes wnl -Diabetic/Sodium controlled diet Prophylaxis -SCD's for DVT -No GI required Disposition -Full code -Still has wheezing. Will need to continue management for COPD exacerbation -PT to avoid deconditioning Destinee Gould [id number] Visit type - Emergency Visit Emergency Visit: Yes ED Registration Date: 08/22/18 Care time: The patient presented to the Emergency Department on the above date and was hospitalized for further evaluation of their emergent condition. - New Patient This patient is new to me today: No - Critical Care Critical Care patient: No
--- NOTE | 2018-08-25 13:29 | PN ---
Teaching Attending Note Name of Resident: Destinee Gould ATTENDING PHYSICIAN STATEMENT I saw and evaluated the patient. I reviewed the resident's note and discussed the case with the resident. I agree with the resident's findings and plan as documented. SUBJECTIVE: Ms Webb says she is feeling much better today. Says cough/sob/ wheezing almost resolved. No cp or n/v. OBJECTIVE: Last Vital Signs Temp Pulse Resp BP Pulse Ox 36.3 C L 72 20 123/75 98 08/25/18 09:35 08/25/18 09:35 08/25/18 09:35 08/25/18 09:35 08/24/18 21:00 Gen: nad Pulm: slight wheezing but otherwise ctab CV: rrr w/o m/r/g Abd: +bs, s/nt/nd Ext: no c/c/e CBC, BMP 08/25/18 06:30 08/25/18 06:30 ASSESSMENT AND PLAN: (1) Influenza A Assessment/Plan: -continue tamiflu renally dosed, day 4 Code(s): J10.1 - FLU DUE TO OTH IDENT INFLUENZA VIRUS W OTH RESP MANIFEST (2) COPD exacerbation Assessment/Plan: -much improved -continue solumedrol today -continue scheduled duonebs -begin tapering steroids tomorrow Code(s): J44.1 - CHRONIC OBSTRUCTIVE PULMONARY DISEASE W (ACUTE) EXACERBATION (3) CHF (congestive heart failure) Assessment/Plan: -continue lasix Code(s): I50.9 - HEART FAILURE, UNSPECIFIED Qualifiers: Heart failure type: diastolic Heart failure chronicity: chronic Qualified Code(s): I50.32 - Chronic diastolic (congestive) heart failure (4) Diabetes Assessment/Plan: -continue diabetic diet and FSBS with SSI Code(s): E11.9 - TYPE 2 DIABETES MELLITUS WITHOUT COMPLICATIONS Qualifiers: Diabetes mellitus type: type 2 Diabetes mellitus senior living insulin use: without superintendent marine oil terminal use Diabetes mellitus complication status: with unspecified complications Qualified Code(s): E11.8 - Type 2 diabetes mellitus with unspecified complications (5) HLD (hyperlipidemia) Assessment/Plan: -continue statin Code(s): E78.5 - HYPERLIPIDEMIA, UNSPECIFIED Qualifiers: Hyperlipidemia type: unspecified Qualified Code(s): E78.5 - Hyperlipidemia , unspecified (6) HTN (hypertension) Assessment/Plan: -continue metoprolol -continue lasix Code(s): I10 - ESSENTIAL (PRIMARY) HYPERTENSION Qualifiers: Hypertension type: essential hypertension Qualified Code(s): I10 - Essential (primary) hypertension (7) UTI -growing klebsiella sensitive to cephalosporins -continue rocephin -can change to oral cephalosporin on discharge Problem List - Problems (1) Influenza A Code(s): J10.1 - FLU DUE TO OTH IDENT INFLUENZA VIRUS W OTH RESP MANIFEST (2) COPD exacerbation Code(s): J44.1 - CHRONIC OBSTRUCTIVE PULMONARY DISEASE W (ACUTE) EXACERBATION (3) CHF (congestive heart failure) Code(s): I50.9 - HEART FAILURE, UNSPECIFIED Qualifiers: Heart failure type: diastolic Heart failure chronicity: chronic Qualified Code(s): I50.32 - Chronic diastolic (congestive) heart failure (4) Diabetes Code(s): E11.9 - TYPE 2 DIABETES MELLITUS WITHOUT COMPLICATIONS Qualifiers: Diabetes mellitus type: type 2 Diabetes mellitus senior living insulin use: without superintendent marine oil terminal use Diabetes mellitus complication status: with unspecified complications Qualified Code(s): E11.8 - Type 2 diabetes mellitus with unspecified complications (5) HLD (hyperlipidemia) Code(s): E78.5 - HYPERLIPIDEMIA, UNSPECIFIED Qualifiers: Hyperlipidemia type: unspecified Qualified Code(s): E78.5 - Hyperlipidemia , unspecified (6) HTN (hypertension) Code(s): I10 - ESSENTIAL (PRIMARY) HYPERTENSION Qualifiers: Hypertension type: essential hypertension Qualified Code(s): I10 - Essential (primary) hypertension (7) UTI (urinary tract infection) Code(s): N39.0 - URINARY TRACT INFECTION, SITE NOT SPECIFIED
[2018-08-25] MEDS ORDERED: INSULIN (LEVEMIR) 100 UNITS/ML UNITS SQ ONE (18:45)
[2018-08-25] MEDS ORDERED: INSULIN (NOVOLOG MIX 70/30) 100 UNITS/ML MDV SQ ONE (18:45)
[2018-08-25] MEDS ORDERED: INSULIN SLIDING SCALE (NOVOLOG) 1 VIAL SQ ONE (18:45)
[2018-08-25] MEDS: ATORVASTATIN CA 20 MG TABLET (FP) PO SCH (22:07)
[2018-08-26] MEDS: methylPREDNISolone NA SUCC 40 MG/1 ML VIAL IVPUSH SCH ×4 (02:19→21:31)
[2018-08-26] MEDS: ALBUTEROL SO4 0.083% IH SOL 2.5 MG/3 ML VIAL.NEB. NEB PRN (02:45)
[2018-08-26] MEDS ORDERED: INSULIN SLIDING SCALE (NOVOLOG) 1 VIAL SQ ONE (05:41)
[2018-08-26] MEDS: INSULIN (NOVOLOG) ASPART 100 UNITS/ML 10ML VIAL SQ SCH ×4 (06:44→21:49)
[2018-08-26] MEDS: ALBUTEROL SO4 2.5/IPRATROPIUM 0.5 INH SOL 3 ML VIAL.NEB. NEB SCH ×4 (07:15→20:09)
[2018-08-26 07:46] LABS: HEMATOCRIT 31.6 % (32.4-45.2); HEMOGLOBIN 10.5 GM/dL (10.7-15.3); MCHC 33.1 g/dl (32.0-36.0); MEAN CELL VOLUME 90.5 fl (80-96); MEAN PLT VOLUME 10.2 fl (7.5-11.1); PLATELET COUNT 158 K/MM3 (134-434); RBC 3.49 M/mm3 (3.60-5.2); RDW 13.8 % (11.6-15.6); WHITE BLOOD COUNT 19.7 K/mm3 (4.0-10.0)
[2018-08-26 08:13] LABS: ANION GAP 7 MMOL/L (8-16); BLOOD UREA NITROGEN 32 mg/dL (7-18); CALCIUM 8.4 mg/dL (8.5-10.1); CHLORIDE 105 mmol/L (98-107); CO2 25 mmol/L (21-32); CREATININE 1.1 mg/dL (0.55-1.3); GLUCOSE,RANDOM 191 mg/dL (74-106); MAGNESIUM 2.4 mg/dL (1.8-2.4); PHOSPHOROUS 3.4 mg/dL (2.5-4.9); POTASSIUM 4.3 mmol/L (3.5-5.1); SODIUM 137 mmol/L (136-145)
[2018-08-26] MEDS ORDERED: PT OWN MED DRAWER 7, Y5N ONE ×2 (08:53→20:37)
[2018-08-26] MEDS ORDERED: cefTRIAXone SODIUM 1 GM VIAL ONE (08:54)
[2018-08-26] MEDS ORDERED: DEXTROSE 5%-WATER - 50 ML IVPB ONE (08:54)
[2018-08-26] MEDS: CEFTRIAXONE 1 GM in DEXTROSE 5%-WATER - 50 ML IVPB SCH (08:59)
[2018-08-26] MEDS: METOPROLOL TARTRATE 25 MG TABLET (FP) PO SCH ×2 (09:00→21:31)
[2018-08-26] MEDS: LACTOBACILLUS ACIDOPHILUS 1 TABLET PO SCH (09:00)
[2018-08-26] MEDS: CHOLECALCIFEROL (VITAMIN D3) 1,000 UNIT TABLET (FP) PO SCH (09:00)
[2018-08-26] MEDS: CYANOCOBALAMIN 1,000 MCG TABLET (FP) PO SCH (09:00)
[2018-08-26] MEDS: OSELTAMIVIR PHOSPHATE 30 MG CAPSULE PO SCH ×2 (09:00→21:31)
--- NOTE | 2018-08-26 16:27 | PN ---
Physical Exam: SUBJECTIVE: Patient seen and examined; complained of coughing and wheezing ON; still c/o of sob at rest. denies fever, chills, hemoptysis. Still with non productive cough. OBJECTIVE: Vital Signs Period Temp Pulse Resp BP Sys/Molina Pulse Ox Last 24 Hr 97.4 F-97.9 F 55-82 16-24 125-146/70-79 96-96 GENERAL: The patient is awake, alert, and fully oriented, in no acute distress. LUNGS: wheezing throughout bilateral lung padilla HEART: Regular rate and rhythm, S1, S2 without murmur, rub or gallop. ABDOMEN: Soft, nontender, nondistended, normoactive bowel sounds, no guarding, no rebound, no hepatosplenomegaly, no masses. EXTREMITIES: 2+ pulses, warm, well-perfused, no edema. NEUROLOGICAL: Cranial nerves II through XII grossly intact. Normal speech, gait not observed. Laboratory Results - last 24 hr 08/25/18 08/25/18 08/26/18 17:08 22:06 05:45 WBC RBC Hgb Hct MCV MCH MCHC RDW Plt Count MPV Sodium Potassium Chloride Carbon Dioxide Anion Gap BUN Creatinine Creat Clearance w eGFR POC Glucometer 245 271 210 Random Glucose Calcium Phosphorus Magnesium 08/26/18 08/26/18 08/26/18 06:30 06:30 11:50 WBC 19.7 H RBC 3.49 L Hgb 10.5 L Hct 31.6 L MCV 90.5 MCH 30.0 MCHC 33.1 RDW 13.8 Plt Count 158 MPV 10.2 Sodium 137 Potassium 4.3 Chloride 105 Carbon Dioxide 25 Anion Gap 7 L BUN 32 H Creatinine 1.1 Creat Clearance w eGFR 46.77 POC Glucometer 151 Random Glucose 191 H Calcium 8.4 L Phosphorus 3.4 Magnesium 2.4 08/26/18 16:10 WBC RBC Hgb Hct MCV MCH MCHC RDW Plt Count MPV Sodium Potassium Chloride Carbon Dioxide Anion Gap BUN Creatinine Creat Clearance w eGFR POC Glucometer 233 Random Glucose Calcium Phosphorus Magnesium Active Medications Generic Name Dose Route Start Last Admin Trade Name Freq PRN Reason Stop Dose Admin Acetaminophen 650 mg 08/22/18 17:51 Tylenol - PO Q4H PRN FEVER Albuterol Sulfate 1 amp 08/24/18 08:21 08/26/18 02:45 Ventolin 0.083% Nebulizer Soln - NEB 1 amp Q4H PRN Administration SHORT OF BREATH/WHEEZING Albuterol/Ipratropium 1 amp 08/24/18 12:00 08/26/18 15:57 Duoneb - NEB 1 amp RQID ALYSIA Administration Atorvastatin Calcium 20 mg 08/22/18 22:00 08/25/18 22:07 Lipitor - PO 20 mg HS ALYSIA Administration Cholecalciferol 1,000 unit 08/23/18 10:00 08/26/18 09:00 Vitamin D3 - PO 1,000 unit DAILY ALYSIA Administration Cyanocobalamin 1,000 mcg 08/23/18 10:00 08/26/18 09:00 Vitamin B12 - PO 1,000 mcg DAILY ALYSIA Administration Ceftriaxone Sodium 1 gm/ 50 mls @ 100 mls/hr 08/24/18 16:30 08/26/18 08:59 Dextrose IVPB 100 mls/hr DAILY ALYSIA Administration Protocol Insulin Aspart 0 units 08/24/18 11:00 08/26/18 13:33 Novolog Vial SQ 2 unit ACHS ALYSIA Administration Protocol Lactobacillus Acidophilus 1 tab 08/24/18 16:30 08/26/18 09:00 Bacid - PO 1 tab DAILY ALYSIA Administration Methylprednisolone Sodium Succinate 40 mg 08/24/18 09:00 08/26/18 15:07 Solu-Medrol - IVPUSH 40 mg Q6H-IV ALYSIA Administration Metoprolol Tartrate 25 mg 08/22/18 22:00 08/26/18 09:00 Lopressor - PO 25 mg BID ALYSIA Administration Oseltamivir Phosphate 30 mg 08/23/18 10:00 08/26/18 09:00 Tamiflu - PO 08/28/18 09:59 30 mg BID ALYSIA Administration ASSESSMENT/PLAN: 88 y/o female with hypertension, HLD, DM, CLL and recently diagnosed influenza on tamiflu. #leukocytosis #lymphocytosis #influenza A+ #reactive airway disease -slight increase in wbc today;(on steriods and has CLL); +for influenza; would rec getting differential with cbc to monitor lymphocytes; monitor -cont tamiflu -inhaled broncodilators L Visit type - Emergency Visit Emergency Visit: Yes ED Registration Date: 08/22/18 Care time: The patient presented to the Emergency Department on the above date and was hospitalized for further evaluation of their emergent condition. - New Patient This patient is new to me today: Yes Date on this admission: 08/26/18 - Critical Care Critical Care patient: No
--- NOTE | 2018-08-26 17:19 | PN ---
Progress Note, Physician Chief Complaint: Ms Webb says she is feeling better but still with some dyspnea on exertion. No cp or n/v. - Current Medication List Current Medications: Active Medications Acetaminophen (Tylenol -) 650 mg PO Q4H PRN PRN Reason: FEVER Albuterol Sulfate (Ventolin 0.083% Nebulizer Soln -) 1 amp NEB Q4H PRN PRN Reason: SHORT OF BREATH/WHEEZING Last Admin: 08/26/18 02:45 Dose: 1 amp Albuterol/Ipratropium (Duoneb -) 1 amp NEB RQID ALYSIA Last Admin: 08/26/18 15:57 Dose: 1 amp Atorvastatin Calcium (Lipitor -) 20 mg PO HS ALYSIA Last Admin: 08/25/18 22:07 Dose: 20 mg Cholecalciferol (Vitamin D3 -) 1,000 unit PO DAILY ALYSIA Last Admin: 08/26/18 09:00 Dose: 1,000 unit Cyanocobalamin (Vitamin B12 -) 1,000 mcg PO DAILY ALYSIA Last Admin: 08/26/18 09:00 Dose: 1,000 mcg Ceftriaxone Sodium 1 gm/ (Dextrose) 50 mls @ 100 mls/hr IVPB DAILY ALYSIA; Protocol Last Admin: 08/26/18 08:59 Dose: 100 mls/hr Insulin Aspart (Novolog Vial) 0 units SQ ACHS ALYSIA; Protocol Last Admin: 08/26/18 16:23 Dose: 4 unit Lactobacillus Acidophilus (Bacid -) 1 tab PO DAILY ALYSIA Last Admin: 08/26/18 09:00 Dose: 1 tab Methylprednisolone Sodium Succinate (Solu-Medrol -) 40 mg IVPUSH Q6H-IV ALYSIA Last Admin: 08/26/18 15:07 Dose: 40 mg Metoprolol Tartrate (Lopressor -) 25 mg PO BID ALYSIA Last Admin: 08/26/18 09:00 Dose: 25 mg Oseltamivir Phosphate (Tamiflu -) 30 mg PO BID ALYSIA Stop: 08/28/18 09:59 Last Admin: 08/26/18 09:00 Dose: 30 mg - Objective Vital Signs: Vital Signs Temperature 36.5 C 08/26/18 14:20 Pulse Rate 62 08/26/18 14:20 Respiratory Rate 16 08/26/18 14:20 Blood Pressure 138/70 08/26/18 14:20 O2 Sat by Pulse Oximetry (%) 96 02/11/19 09:00 Constitutional: Yes: Well Nourished, No Distress, Calm Cardiovascular: Yes: Regular Rate and Rhythm. No: Gallop, Murmur, Rub Respiratory: Yes: Regular, On Nasal O2, Wheezes. No: CTA Bilaterally, Rales, Rhonchi Gastrointestinal: Yes: Normal Bowel Sounds, Soft. No: Distention, Tenderness Extremities: Yes: WNL Edema: No Labs: CBC, BMP 08/26/18 06:30 08/26/18 06:30 INR, PTT INR 1.14 (0.83-1.09) H 08/22/18 20:00 Problem List - Problems (1) Influenza A Code(s): J10.1 - FLU DUE TO OTH IDENT INFLUENZA VIRUS W OTH RESP MANIFEST (2) COPD exacerbation Code(s): J44.1 - CHRONIC OBSTRUCTIVE PULMONARY DISEASE W (ACUTE) EXACERBATION (3) CHF (congestive heart failure) Code(s): I50.9 - HEART FAILURE, UNSPECIFIED Qualifiers: Heart failure type: diastolic Heart failure chronicity: chronic Qualified Code(s): I50.32 - Chronic diastolic (congestive) heart failure (4) Diabetes Code(s): E11.9 - TYPE 2 DIABETES MELLITUS WITHOUT COMPLICATIONS Qualifiers: Diabetes mellitus type: type 2 Diabetes mellitus intermediate project manager insulin use: without detention use Diabetes mellitus complication status: with unspecified complications Qualified Code(s): E11.8 - Type 2 diabetes mellitus with unspecified complications (5) HLD (hyperlipidemia) Code(s): E78.5 - HYPERLIPIDEMIA, UNSPECIFIED Qualifiers: Hyperlipidemia type: unspecified Qualified Code(s): E78.5 - Hyperlipidemia , unspecified (6) HTN (hypertension) Code(s): I10 - ESSENTIAL (PRIMARY) HYPERTENSION Qualifiers: Hypertension type: essential hypertension Qualified Code(s): I10 - Essential (primary) hypertension (7) UTI (urinary tract infection) Code(s): N39.0 - URINARY TRACT INFECTION, SITE NOT SPECIFIED Assessment/Plan (1) Influenza A Assessment/Plan: -continue tamiflu renally dosed, day 4 -last dose tomorrow am Code(s): J10.1 - FLU DUE TO OTH IDENT INFLUENZA VIRUS W OTH RESP MANIFEST (2) COPD exacerbation Assessment/Plan: -secondary to influenza -oxygen support -continue solumedrol and bronchodilators -slowly improving Code(s): J44.1 - CHRONIC OBSTRUCTIVE PULMONARY DISEASE W (ACUTE) EXACERBATION (3) CHF (congestive heart failure) Assessment/Plan: continue lasix Code(s): I50.9 - HEART FAILURE, UNSPECIFIED Qualifiers: Heart failure type: diastolic Heart failure chronicity: chronic Qualified Code(s): I50.32 - Chronic diastolic (congestive) heart failure (4) Diabetes Assessment/Plan: -place on SSI since now on solumedrol Code(s): E11.9 - TYPE 2 DIABETES MELLITUS WITHOUT COMPLICATIONS Qualifiers: Diabetes mellitus type: type 2 Diabetes mellitus detention insulin use: without intermediate project manager use Diabetes mellitus complication status: with unspecified complications Qualified Code(s): E11.8 - Type 2 diabetes mellitus with unspecified complications (5) HLD (hyperlipidemia) Assessment/Plan: -continue statin Code(s): E78.5 - HYPERLIPIDEMIA, UNSPECIFIED Qualifiers: Hyperlipidemia type: unspecified Qualified Code(s): E78.5 - Hyperlipidemia , unspecified (6) HTN (hypertension) Assessment/Plan: -continue metoprolol and restart lasix Code(s): I10 - ESSENTIAL (PRIMARY) HYPERTENSION Qualifiers: Hypertension type: essential hypertension Qualified Code(s): I10 - Essential (primary) hypertension (7) UTI -continue rocephin day 3
[2018-08-26] MEDS: PANTOPRAZOLE 40 MG TABLET (FP) PO SCH (17:53)
[2018-08-26] MEDS: ATORVASTATIN CA 20 MG TABLET (FP) PO SCH (21:31)
[2018-08-27] MEDS: methylPREDNISolone NA SUCC 40 MG/1 ML VIAL IVPUSH SCH ×3 (02:08→17:47)
[2018-08-27 06:22] LABS: BASO % 0.2 % (0-2.0); HEMATOCRIT 32.7 % (32.4-45.2); HEMOGLOBIN 10.9 GM/dL (10.7-15.3); LYMPH % 65.4 % (8-40); MCH 29.9 pg (25.7-33.7); MCHC 33.2 g/dl (32.0-36.0); MEAN CELL VOLUME 89.9 fl (80-96); MEAN PLT VOLUME 9.7 fl (7.5-11.1); MONO % 0.8 % (3.8-10.2); NEUT % 33.6 % (42.8-82.8); PLATELET COUNT 148 K/MM3 (134-434); RBC 3.64 M/mm3 (3.60-5.2); RDW 13.9 % (11.6-15.6); WHITE BLOOD COUNT 19.6 K/mm3 (4.0-10.0)
[2018-08-27] MEDS: INSULIN (NOVOLOG) ASPART 100 UNITS/ML 10ML VIAL SQ SCH ×4 (06:32→22:16)
[2018-08-27] MEDS: ALBUTEROL SO4 2.5/IPRATROPIUM 0.5 INH SOL 3 ML VIAL.NEB. NEB SCH ×4 (07:25→20:38)
[2018-08-27 09:02] LABS: ANION GAP 9 MMOL/L (8-16); CALCIUM 8.6 mg/dL (8.5-10.1); CHLORIDE 106 mmol/L (98-107); CO2 24 mmol/L (21-32); CREATININE 1.1 mg/dL (0.55-1.3); GLUCOSE,RANDOM 208 mg/dL (74-106); MAGNESIUM 2.6 mg/dL (1.8-2.4); PHOSPHOROUS 3.7 mg/dL (2.5-4.9); POTASSIUM 4.6 mmol/L (3.5-5.1); SODIUM 138 mmol/L (136-145)
[2018-08-27] MEDS ORDERED: cefTRIAXone SODIUM 1 GM VIAL ONE (10:36)
[2018-08-27] MEDS ORDERED: DEXTROSE 5%-WATER - 50 ML IVPB ONE (10:36)
[2018-08-27] MEDS: METOPROLOL TARTRATE 25 MG TABLET (FP) PO SCH ×2 (10:53→21:27)
[2018-08-27] MEDS: CYANOCOBALAMIN 1,000 MCG TABLET (FP) PO SCH (10:53)
[2018-08-27] MEDS: PANTOPRAZOLE 40 MG TABLET (FP) PO SCH (10:53)
[2018-08-27] MEDS: CHOLECALCIFEROL (VITAMIN D3) 1,000 UNIT TABLET (FP) PO SCH (10:53)
[2018-08-27] MEDS: CEFTRIAXONE 1 GM in DEXTROSE 5%-WATER - 50 ML IVPB SCH (10:53)
[2018-08-27] MEDS: LACTOBACILLUS ACIDOPHILUS 1 TABLET PO SCH (10:53)
[2018-08-27] MEDS: OSELTAMIVIR PHOSPHATE 30 MG CAPSULE PO SCH (10:54)
[2018-08-27 11:10] LABS: SMUDGE CELLS 1+
[2018-08-27 11:11] LABS: PLATELET ESTIMATE NORMAL
--- NOTE | 2018-08-27 12:15 | PN ---
Progress Note, Physician Chief Complaint: Ms Webb says she is feeling much better and is very thankful. Still with wheezing but better. Shortness of breath improved. No cp or n/v. - Current Medication List Current Medications: Active Medications Acetaminophen (Tylenol -) 650 mg PO Q4H PRN PRN Reason: FEVER Albuterol Sulfate (Ventolin 0.083% Nebulizer Soln -) 1 amp NEB Q4H PRN PRN Reason: SHORT OF BREATH/WHEEZING Last Admin: 08/26/18 02:45 Dose: 1 amp Albuterol/Ipratropium (Duoneb -) 1 amp NEB RQID ALYSIA Last Admin: 08/27/18 11:04 Dose: 1 amp Atorvastatin Calcium (Lipitor -) 20 mg PO HS ALYSIA Last Admin: 08/26/18 21:31 Dose: 20 mg Cholecalciferol (Vitamin D3 -) 1,000 unit PO DAILY ALYSIA Last Admin: 08/27/18 10:53 Dose: 1,000 unit Cyanocobalamin (Vitamin B12 -) 1,000 mcg PO DAILY ALYSIA Last Admin: 08/27/18 10:53 Dose: 1,000 mcg Ceftriaxone Sodium 1 gm/ (Dextrose) 50 mls @ 100 mls/hr IVPB DAILY ALYSIA; Protocol Last Admin: 08/27/18 10:53 Dose: 100 mls/hr Insulin Aspart (Novolog Vial) 0 units SQ ACHS ALYSIA; Protocol Last Admin: 08/27/18 11:59 Dose: 2 unit Lactobacillus Acidophilus (Bacid -) 1 tab PO DAILY ALYSIA Last Admin: 08/27/18 10:53 Dose: 1 tab Methylprednisolone Sodium Succinate (Solu-Medrol -) 40 mg IVPUSH Q8H-IV ALYSIA Metoprolol Tartrate (Lopressor -) 25 mg PO BID ALYSIA Last Admin: 08/27/18 10:53 Dose: 25 mg Oseltamivir Phosphate (Tamiflu -) 30 mg PO BID ALYSIA Stop: 08/27/18 16:00 Last Admin: 08/27/18 10:54 Dose: 30 mg Pantoprazole Sodium (Protonix -) 40 mg PO DAILY ALYSIA Last Admin: 08/27/18 10:53 Dose: 40 mg - Objective Vital Signs: Vital Signs Temperature 36.8 C 08/27/18 10:00 Pulse Rate 58 L 08/27/18 10:00 Respiratory Rate 18 08/27/18 10:00 Blood Pressure 147/77 08/27/18 10:00 O2 Sat by Pulse Oximetry (%) 100 08/26/18 22:00 Constitutional: Yes: Well Nourished, No Distress, Calm Cardiovascular: Yes: Regular Rate and Rhythm. No: Gallop, Murmur, Rub Respiratory: Yes: Regular, On Nasal O2, Wheezes. No: CTA Bilaterally, Rales, Rhonchi Gastrointestinal: Yes: Normal Bowel Sounds, Soft. No: Distention, Tenderness Extremities: Yes: WNL Edema: No Labs: CBC, BMP 08/27/18 06:00 08/27/18 06:00 INR, PTT INR 1.14 (0.83-1.09) H 08/22/18 20:00 Problem List - Problems (1) Influenza A Code(s): J10.1 - FLU DUE TO OTH IDENT INFLUENZA VIRUS W OTH RESP MANIFEST (2) COPD exacerbation Code(s): J44.1 - CHRONIC OBSTRUCTIVE PULMONARY DISEASE W (ACUTE) EXACERBATION (3) CHF (congestive heart failure) Code(s): I50.9 - HEART FAILURE, UNSPECIFIED Qualifiers: Heart failure type: diastolic Heart failure chronicity: chronic Qualified Code(s): I50.32 - Chronic diastolic (congestive) heart failure (4) Diabetes Code(s): E11.9 - TYPE 2 DIABETES MELLITUS WITHOUT COMPLICATIONS Qualifiers: Diabetes mellitus type: type 2 Diabetes mellitus penitentiary insulin use: without penitentiary use Diabetes mellitus complication status: with unspecified complications Qualified Code(s): E11.8 - Type 2 diabetes mellitus with unspecified complications (5) HLD (hyperlipidemia) Code(s): E78.5 - HYPERLIPIDEMIA, UNSPECIFIED Qualifiers: Hyperlipidemia type: unspecified Qualified Code(s): E78.5 - Hyperlipidemia , unspecified (6) HTN (hypertension) Code(s): I10 - ESSENTIAL (PRIMARY) HYPERTENSION Qualifiers: Hypertension type: essential hypertension Qualified Code(s): I10 - Essential (primary) hypertension (7) UTI (urinary tract infection) Code(s): N39.0 - URINARY TRACT INFECTION, SITE NOT SPECIFIED Assessment/Plan (1) Influenza A Assessment/Plan: -continue tamiflu renally dosed, day 5 -last dose this am Code(s): J10.1 - FLU DUE TO OTH IDENT INFLUENZA VIRUS W OTH RESP MANIFEST (2) COPD exacerbation Assessment/Plan: -still with wheezing, but patient much improved -will decrease solumedrol to q8h -if continues to improve, change to q12h -continue bronchodilators Code(s): J44.1 - CHRONIC OBSTRUCTIVE PULMONARY DISEASE W (ACUTE) EXACERBATION (3) CHF (congestive heart failure) Assessment/Plan: continue lasix Code(s): I50.9 - HEART FAILURE, UNSPECIFIED Qualifiers: Heart failure type: diastolic Heart failure chronicity: chronic Qualified Code(s): I50.32 - Chronic diastolic (congestive) heart failure (4) Diabetes Assessment/Plan: -placed on SSI since now on solumedrol Code(s): E11.9 - TYPE 2 DIABETES MELLITUS WITHOUT COMPLICATIONS Qualifiers: Diabetes mellitus type: type 2 Diabetes mellitus intermediate manager insulin use: without intermediate manager use Diabetes mellitus complication status: with unspecified complications Qualified Code(s): E11.8 - Type 2 diabetes mellitus with unspecified complications (5) HLD (hyperlipidemia) Assessment/Plan: -continue statin Code(s): E78.5 - HYPERLIPIDEMIA, UNSPECIFIED Qualifiers: Hyperlipidemia type: unspecified Qualified Code(s): E78.5 - Hyperlipidemia , unspecified (6) HTN (hypertension) Assessment/Plan: -continue metoprolol lasix Code(s): I10 - ESSENTIAL (PRIMARY) HYPERTENSION Qualifiers: Hypertension type: essential hypertension Qualified Code(s): I10 - Essential (primary) hypertension (7) UTI -continue rocephin day 4
[2018-08-27] MEDS ORDERED: INSULIN SLIDING SCALE (NOVOLOG) 1 VIAL SQ ONE (21:19)
[2018-08-27] MEDS: ATORVASTATIN CA 20 MG TABLET (FP) PO SCH (21:28)
[2018-08-28] MEDS: ALBUTEROL SO4 0.083% IH SOL 2.5 MG/3 ML VIAL.NEB. NEB PRN (00:21)
[2018-08-28] MEDS: methylPREDNISolone NA SUCC 40 MG/1 ML VIAL IVPUSH SCH ×3 (01:11→17:16)
[2018-08-28] MEDS: INSULIN (NOVOLOG) ASPART 100 UNITS/ML 10ML VIAL SQ SCH ×4 (06:48→21:37)
[2018-08-28 07:02] LABS: BASO % 0.3 % (0-2.0); HEMOGLOBIN 10.9 GM/dL (10.7-15.3); LYMPH % 70.8 % (8-40); MCH 29.6 pg (25.7-33.7); MCHC 32.9 g/dl (32.0-36.0); MEAN CELL VOLUME 89.9 fl (80-96); MEAN PLT VOLUME 9.4 fl (7.5-11.1); NEUT % 27.9 % (42.8-82.8); PLATELET COUNT 153 K/MM3 (134-434); RBC 3.67 M/mm3 (3.60-5.2); RDW 14.1 % (11.6-15.6); WHITE BLOOD COUNT 23.4 K/mm3 (4.0-10.0)
[2018-08-28 07:27] LABS: ANION GAP 6 MMOL/L (8-16); BLOOD UREA NITROGEN 37 mg/dL (7-18); CALCIUM 8.2 mg/dL (8.5-10.1); CHLORIDE 104 mmol/L (98-107); CO2 26 mmol/L (21-32); CREATININE 1.1 mg/dL (0.55-1.3); GLUCOSE,RANDOM 207 mg/dL (74-106); MAGNESIUM 2.5 mg/dL (1.8-2.4); PHOSPHOROUS 3.4 mg/dL (2.5-4.9); POTASSIUM 4.7 mmol/L (3.5-5.1); SODIUM 136 mmol/L (136-145)
[2018-08-28] MEDS: ALBUTEROL SO4 2.5/IPRATROPIUM 0.5 INH SOL 3 ML VIAL.NEB. NEB SCH ×4 (08:14→20:54)
[2018-08-28] MEDS ORDERED: DEXTROSE 5%-WATER - 50 ML IVPB ONE (08:38)
[2018-08-28] MEDS ORDERED: cefTRIAXone SODIUM 1 GM VIAL ONE (08:38)
[2018-08-28] MEDS: CEFTRIAXONE 1 GM in DEXTROSE 5%-WATER - 50 ML IVPB SCH (09:05)
[2018-08-28] MEDS: CHOLECALCIFEROL (VITAMIN D3) 1,000 UNIT TABLET (FP) PO SCH (09:06)
[2018-08-28] MEDS: LACTOBACILLUS ACIDOPHILUS 1 TABLET PO SCH (09:06)
[2018-08-28] MEDS: METOPROLOL TARTRATE 25 MG TABLET (FP) PO SCH ×2 (09:06→21:37)
[2018-08-28] MEDS: CYANOCOBALAMIN 1,000 MCG TABLET (FP) PO SCH (09:06)
[2018-08-28] MEDS: PANTOPRAZOLE 40 MG TABLET (FP) PO SCH (09:06)
--- NOTE | 2018-08-28 11:24 | PN ---
Progress Note, Physician Chief Complaint: Pt sitting in chair in no acute distress. feeling better, breathing improving. denies any chest pain, worsening sob, n/v/d - Current Medication List Current Medications: Active Medications Acetaminophen (Tylenol -) 650 mg PO Q4H PRN PRN Reason: FEVER Albuterol Sulfate (Ventolin 0.083% Nebulizer Soln -) 1 amp NEB Q4H PRN PRN Reason: SHORT OF BREATH/WHEEZING Last Admin: 08/28/18 00:21 Dose: 1 amp Albuterol/Ipratropium (Duoneb -) 1 amp NEB RQID [facility] Last Admin: 08/28/18 11:09 Dose: 1 amp Atorvastatin Calcium (Lipitor -) 20 mg PO HS [facility] Last Admin: 08/27/18 21:28 Dose: 20 mg Cholecalciferol (Vitamin D3 -) 1,000 unit PO DAILY [facility] Last Admin: 08/28/18 09:06 Dose: 1,000 unit Cyanocobalamin (Vitamin B12 -) 1,000 mcg PO DAILY [facility] Last Admin: 08/28/18 09:06 Dose: 1,000 mcg Ceftriaxone Sodium 1 gm/ (Dextrose) 50 mls @ 100 mls/hr IVPB DAILY [facility]; Protocol Last Admin: 08/28/18 09:05 Dose: 100 mls/hr Insulin Aspart (Novolog Vial) 0 units SQ ACHS [facility]; Protocol Last Admin: 08/28/18 06:48 Dose: 2 unit Lactobacillus Acidophilus (Bacid -) 1 tab PO DAILY [facility] Last Admin: 08/28/18 09:06 Dose: 1 tab Methylprednisolone Sodium Succinate (Solu-Medrol -) 40 mg IVPUSH Q8H-IV [facility] Last Admin: 08/28/18 09:06 Dose: 40 mg Metoprolol Tartrate (Lopressor -) 25 mg PO BID [facility] Last Admin: 08/28/18 09:06 Dose: 25 mg Pantoprazole Sodium (Protonix -) 40 mg PO DAILY [facility] Last Admin: 08/28/18 09:06 Dose: 40 mg - Objective Vital Signs: Vital Signs Temperature 97.4 F L 08/28/18 09:16 Pulse Rate 86 08/28/18 09:16 Respiratory Rate 20 08/28/18 09:16 Blood Pressure 114/71 08/28/18 09:16 O2 Sat by Pulse Oximetry (%) 94 L 08/28/18 09:17 Constitutional: Yes: Well Nourished, No Distress, Calm Cardiovascular: Yes: Regular Rate and Rhythm Respiratory: Yes: Regular, Diminished, On Nasal O2, Wheezes (scattered). No: Accessory Muscle Use, Tachypnea Gastrointestinal: Yes: WNL, Normal Bowel Sounds, Soft. No: Distention, Tenderness Genitourinary: Yes: WNL Extremities: Yes: WNL Edema: No Neurological: Yes: WNL, Alert, Oriented Psychiatric: Yes: WNL, Alert, Oriented Labs: CBC, BMP 08/28/18 06:30 08/28/18 06:30 INR, PTT INR 1.14 (0.83-1.09) H 08/22/18 20:00 Assessment/Plan (1) Influenza A Assessment/Plan: completed tamiflu Code(s): J10.1 - FLU DUE TO OTH IDENT INFLUENZA VIRUS W OTH RESP MANIFEST (2) COPD exacerbation Assessment/Plan: still with wheezing continue solumedrol- reduce to bid tmrw if improving continue bronchodilators Code(s): J44.1 - CHRONIC OBSTRUCTIVE PULMONARY DISEASE W (ACUTE) EXACERBATION (3) CHF (congestive heart failure) Assessment/Plan: continue lasix Code(s): I50.9 - HEART FAILURE, UNSPECIFIED Qualifiers: Heart failure type: diastolic Heart failure chronicity: chronic Qualified Code(s): I50.32 - Chronic diastolic (congestive) heart failure (4) Diabetes Assessment/Plan: placed on SSI since now on solumedrol Code(s): E11.9 - TYPE 2 DIABETES MELLITUS WITHOUT COMPLICATIONS Qualifiers: Diabetes mellitus type: type 2 Diabetes mellitus intermediate frame tender insulin use: without intermediate frame tender use Diabetes mellitus complication status: with unspecified complications Qualified Code(s): E11.8 - Type 2 diabetes mellitus with unspecified complications (5) HLD (hyperlipidemia) Assessment/Plan: continue statin Code(s): E78.5 - HYPERLIPIDEMIA, UNSPECIFIED Qualifiers: Hyperlipidemia type: unspecified Qualified Code(s): E78.5 - Hyperlipidemia , unspecified (6) HTN (hypertension) Assessment/Plan: continue metoprolol lasix Code(s): I10 - ESSENTIAL (PRIMARY) HYPERTENSION Qualifiers: Hypertension type: essential hypertension Qualified Code(s): I10 - Essential (primary) hypertension (7) UTI rocephin day 5
[2018-08-28 11:32] LABS: ANISOCYTOSIS 1+; MACROCYTOSIS 0; PLATELET ESTIMATE NORMAL
--- NOTE | 2018-08-28 15:13 | PN ---
Progress Note (short form) - Note Progress Note: Patient seen and examined Remains dyspneic and tachyneic Cough persists , but sputum is clearing Last Vital Signs Temp Pulse Resp BP Pulse Ox 97.8 F 62 18 117/70 94 L 08/28/18 13:34 08/28/18 13:34 08/28/18 13:34 08/28/18 13:34 08/28/18 09:17 HEENT: KATIA, EOM Intact Oropharynx: No thrush, No mucositis Neck: Supple Nodes: Without adenopathy Breasts: Without masses/s/p surgery Cor: RSR, No murmurs, No gallops Lungs: diffuse rhonchi Abd: Soft, Normal bowel sounds, No organomegaly Ext:1-2+ LE eema edema Skin: No rashes, Integument intact CBC, BMP 08/28/18 06:30 08/28/18 06:30 Current Medications Generic Name Dose Route Start Last Admin Trade Name Freq PRN Reason Stop Dose Admin Acetaminophen 650 mg 08/22/18 17:51 Tylenol - PO Q4H PRN FEVER Albuterol Sulfate 1 amp 08/24/18 08:21 08/28/18 00:21 Ventolin 0.083% Nebulizer Soln - NEB 1 amp Q4H PRN Administration SHORT OF BREATH/WHEEZING Albuterol/Ipratropium 1 amp 08/24/18 12:00 08/28/18 11:09 Duoneb - NEB 1 amp RQID [facility] Administration Atorvastatin Calcium 20 mg 08/22/18 22:00 08/27/18 21:28 Lipitor - PO 20 mg HS [facility] Administration Cholecalciferol 1,000 unit 08/23/18 10:00 08/28/18 09:06 Vitamin D3 - PO 1,000 unit DAILY [facility] Administration Cyanocobalamin 1,000 mcg 08/23/18 10:00 08/28/18 09:06 Vitamin B12 - PO 1,000 mcg DAILY [facility] Administration Ceftriaxone Sodium 1 gm/ 50 mls @ 100 mls/hr 08/24/18 16:30 08/28/18 09:05 Dextrose IVPB 100 mls/hr DAILY [facility] Administration Protocol Insulin Aspart 0 units 08/24/18 11:00 08/28/18 11:35 Novolog Vial SQ 4 unit ACHS [facility] Administration Protocol Lactobacillus Acidophilus 1 tab 08/24/18 16:30 08/28/18 09:06 Bacid - PO 1 tab DAILY [facility] Administration Methylprednisolone Sodium Succinate 40 mg 08/27/18 18:00 08/28/18 09:06 Solu-Medrol - IVPUSH 40 mg Q8H-IV [facility] Administration Metoprolol Tartrate 25 mg 08/22/18 22:00 08/28/18 09:06 Lopressor - PO 25 mg BID [facility] Administration Pantoprazole Sodium 40 mg 08/26/18 17:30 08/28/18 09:06 Protonix - PO 40 mg DAILY [facility] Administration impression: Influenza CLL H/O breast Ca HBP HPL UTI Plan: taper steroids - change to p.o Oral antibiotics for pulmonary and UTI Out patient follow up.
[2018-08-28] MEDS: ATORVASTATIN CA 20 MG TABLET (FP) PO SCH (21:37)
[2018-08-29] MEDS: methylPREDNISolone NA SUCC 40 MG/1 ML VIAL IVPUSH SCH ×3 (01:41→21:23)
[2018-08-29] MEDS: INSULIN (NOVOLOG) ASPART 100 UNITS/ML 10ML VIAL SQ SCH ×4 (06:26→21:23)
[2018-08-29 07:29] LABS: BASO % 0.3 % (0-2.0); HEMATOCRIT 34.7 % (32.4-45.2); HEMOGLOBIN 11.4 GM/dL (10.7-15.3); LYMPH % 73.5 % (8-40); MCH 29.6 pg (25.7-33.7); MCHC 32.9 g/dl (32.0-36.0); MEAN PLT VOLUME 9.6 fl (7.5-11.1); MONO % 1.2 % (3.8-10.2); PLATELET COUNT 168 K/MM3 (134-434); RBC 3.85 M/mm3 (3.60-5.2); RDW 14.1 % (11.6-15.6)
[2018-08-29 07:58] LABS: ANION GAP 8 MMOL/L (8-16); BLOOD UREA NITROGEN 34 mg/dL (7-18); CHLORIDE 105 mmol/L (98-107); CO2 24 mmol/L (21-32); GLUCOSE,RANDOM 216 mg/dL (74-106); MAGNESIUM 2.5 mg/dL (1.8-2.4); PHOSPHOROUS 3.2 mg/dL (2.5-4.9); POTASSIUM 4.3 mmol/L (3.5-5.1); SODIUM 138 mmol/L (136-145)
[2018-08-29] MEDS: ALBUTEROL SO4 2.5/IPRATROPIUM 0.5 INH SOL 3 ML VIAL.NEB. NEB SCH ×4 (08:08→20:44)
[2018-08-29] MEDS ORDERED: cefTRIAXone SODIUM 1 GM VIAL ONE (09:08)
[2018-08-29] MEDS ORDERED: DEXTROSE 5%-WATER - 50 ML IVPB ONE (09:09)
--- NOTE | 2018-08-29 09:28 | PN ---
Progress Note, Physician Chief Complaint: Pt sitting in chair in no acute distress. reports feeling a lot better today. denies any chest pain, worsening sob, n/v/d - Current Medication List Current Medications: Active Medications Acetaminophen (Tylenol -) 650 mg PO Q4H PRN PRN Reason: FEVER Albuterol Sulfate (Ventolin 0.083% Nebulizer Soln -) 1 amp NEB Q4H PRN PRN Reason: SHORT OF BREATH/WHEEZING Last Admin: 08/28/18 00:21 Dose: 1 amp Albuterol/Ipratropium (Duoneb -) 1 amp NEB RQID [facility] Last Admin: 08/29/18 08:08 Dose: 1 amp Atorvastatin Calcium (Lipitor -) 20 mg PO HS [facility] Last Admin: 08/28/18 21:37 Dose: 20 mg Cholecalciferol (Vitamin D3 -) 1,000 unit PO DAILY [facility] Last Admin: 08/28/18 09:06 Dose: 1,000 unit Cyanocobalamin (Vitamin B12 -) 1,000 mcg PO DAILY [facility] Last Admin: 08/28/18 09:06 Dose: 1,000 mcg Ceftriaxone Sodium 1 gm/ (Dextrose) 50 mls @ 100 mls/hr IVPB DAILY [facility]; Protocol Last Admin: 08/28/18 09:05 Dose: 100 mls/hr Insulin Aspart (Novolog Vial) 0 units SQ ACHS [facility]; Protocol Last Admin: 08/29/18 06:26 Dose: 6 unit Lactobacillus Acidophilus (Bacid -) 1 tab PO DAILY [facility] Last Admin: 08/28/18 09:06 Dose: 1 tab Methylprednisolone Sodium Succinate (Solu-Medrol -) 40 mg IVPUSH Q12H [facility] Metoprolol Tartrate (Lopressor -) 25 mg PO BID [facility] Last Admin: 08/28/18 21:37 Dose: 25 mg Pantoprazole Sodium (Protonix -) 40 mg PO DAILY [facility] Last Admin: 08/28/18 09:06 Dose: 40 mg - Objective Vital Signs: Vital Signs Temperature 97.5 F L 08/29/18 08:56 Pulse Rate 62 08/29/18 08:56 Respiratory Rate 18 08/29/18 08:56 Blood Pressure 145/73 08/29/18 08:56 O2 Sat by Pulse Oximetry (%) 97 08/28/18 21:00 Constitutional: Yes: Well Nourished, No Distress Cardiovascular: Yes: Regular Rate and Rhythm Respiratory: Yes: Regular, Diminished, On Nasal O2, Wheezes (scattered- improving). No: Accessory Muscle Use, SOB, Tachypnea Gastrointestinal: Yes: WNL, Normal Bowel Sounds, Soft, Abdomen, Obese. No: Distention, Tenderness Genitourinary: Yes: WNL Musculoskeletal: Yes: WNL Extremities: Yes: WNL Edema: No Neurological: Yes: WNL, Alert, Oriented Psychiatric: Yes: WNL, Alert, Oriented Labs: CBC, BMP 08/29/18 06:50 08/29/18 06:50 INR, PTT INR 1.14 (0.83-1.09) H 08/22/18 20:00 Assessment/Plan (1) Influenza A Assessment/Plan: completed tamiflu Code(s): J10.1 - FLU DUE TO OTH IDENT INFLUENZA VIRUS W OTH RESP MANIFEST (2) COPD exacerbation Assessment/Plan: lung exam improving continue solumedrol bid transition to po prednisone tmrw continue bronchodilators pre and post done- no o2 requirement Code(s): J44.1 - CHRONIC OBSTRUCTIVE PULMONARY DISEASE W (ACUTE) EXACERBATION (3) CHF (congestive heart failure) Assessment/Plan: continue lasix Code(s): I50.9 - HEART FAILURE, UNSPECIFIED Qualifiers: Heart failure type: diastolic Heart failure chronicity: chronic Qualified Code(s): I50.32 - Chronic diastolic (congestive) heart failure (4) Diabetes Assessment/Plan: placed on SSI since now on solumedrol Code(s): E11.9 - TYPE 2 DIABETES MELLITUS WITHOUT COMPLICATIONS Qualifiers: Diabetes mellitus type: type 2 Diabetes mellitus intermediate insulin use: without intermediate use Diabetes mellitus complication status: with unspecified complications Qualified Code(s): E11.8 - Type 2 diabetes mellitus with unspecified complications (5) HLD (hyperlipidemia) Assessment/Plan: continue statin Code(s): E78.5 - HYPERLIPIDEMIA, UNSPECIFIED Qualifiers: Hyperlipidemia type: unspecified Qualified Code(s): E78.5 - Hyperlipidemia , unspecified (6) HTN (hypertension) Assessment/Plan: continue metoprolol lasix Code(s): I10 - ESSENTIAL (PRIMARY) HYPERTENSION Qualifiers: Hypertension type: essential hypertension Qualified Code(s): I10 - Essential (primary) hypertension (7) UTI rocephin day 6 Dispo: home w/ vns, anticipate d/c tmrw am
[2018-08-29] MEDS: DOCUSATE SODIUM 100 MG CAPSULE (FP) PO SCH (09:41)
[2018-08-29] MEDS: CYANOCOBALAMIN 1,000 MCG TABLET (FP) PO SCH (09:42)
[2018-08-29] MEDS: METOPROLOL TARTRATE 25 MG TABLET (FP) PO SCH ×2 (09:42→21:23)
[2018-08-29] MEDS: POLYETHYLENE GLYCOL 3350 119 GM BTL PO SCH (09:42)
[2018-08-29] MEDS: PANTOPRAZOLE 40 MG TABLET (FP) PO SCH (09:42)
[2018-08-29] MEDS: CHOLECALCIFEROL (VITAMIN D3) 1,000 UNIT TABLET (FP) PO SCH (09:42)
[2018-08-29] MEDS: CEFTRIAXONE 1 GM in DEXTROSE 5%-WATER - 50 ML IVPB SCH (09:43)
[2018-08-29] MEDS: LACTOBACILLUS ACIDOPHILUS 1 TABLET PO SCH (09:43)
[2018-08-29 11:12] LABS: ANISOCYTOSIS 1+; MACROCYTOSIS 0; OVALOCYTE 1+; PLATELET ESTIMATE NORMAL
[2018-08-29 12:16] VITALS: BMI 29.8
[2018-08-29] MEDS ORDERED: INSULIN SLIDING SCALE (NOVOLOG) 1 VIAL SQ ONE (21:15)
[2018-08-29] MEDS: ATORVASTATIN CA 20 MG TABLET (FP) PO SCH (21:23)
[2018-08-30] MEDS: INSULIN (NOVOLOG) ASPART 100 UNITS/ML 10ML VIAL SQ SCH ×2 (06:12→12:45)
[2018-08-30 06:41] LABS: BASO % 0.2 % (0-2.0); HEMOGLOBIN 12.2 GM/dL (10.7-15.3); LYMPH % 77.4 % (8-40); MCH 29.6 pg (25.7-33.7); MCHC 32.9 g/dl (32.0-36.0); MEAN CELL VOLUME 89.9 fl (80-96); MEAN PLT VOLUME 9.7 fl (7.5-11.1); MONO % 1.2 % (3.8-10.2); NEUT % 21.2 % (42.8-82.8); PLATELET COUNT 181 K/MM3 (134-434); RBC 4.12 M/mm3 (3.60-5.2); RDW 13.9 % (11.6-15.6)
[2018-08-30 06:53] LABS: ANION GAP 5 MMOL/L (8-16); BLOOD UREA NITROGEN 35 mg/dL (7-18); CHLORIDE 104 mmol/L (98-107); CO2 26 mmol/L (21-32); GLUCOSE,RANDOM 197 mg/dL (74-106); POTASSIUM 4.5 mmol/L (3.5-5.1); SODIUM 135 mmol/L (136-145)
[2018-08-30 07:56] LABS: WHITE BLOOD COUNT 31.5 K/mm3 (4.0-10.0)
[2018-08-30] MEDS: ALBUTEROL SO4 2.5/IPRATROPIUM 0.5 INH SOL 3 ML VIAL.NEB. NEB SCH ×2 (08:06→12:08)
--- NOTE | 2018-08-30 09:45 | DS ---
Physical Examination Vital Signs: Vital Signs Temperature 97.8 F 08/30/18 06:00 Pulse Rate 62 08/30/18 06:00 Respiratory Rate 20 08/30/18 06:00 Blood Pressure 155/81 08/30/18 06:00 O2 Sat by Pulse Oximetry (%) 95 08/29/18 21:00 Constitutional: Yes: Well Nourished, No Distress, Calm Cardiovascular: Yes: Regular Rate and Rhythm Respiratory: Yes: Regular, Diminished, Rhonchi (scattered, improved). No: Accessory Muscle Use, On Nasal O2, SOB, Tachypnea, Wheezes Gastrointestinal: Yes: WNL, Normal Bowel Sounds, Soft, Abdomen, Obese. No: Distention, Tenderness Renal/: Yes: WNL Extremities: Yes: WNL Edema: No Neurological: Yes: WNL, Alert, Oriented Psychiatric: Yes: WNL, Alert, Oriented Labs: CBC, BMP 08/30/18 06:00 08/30/18 06:00 Discharge Summary Reason For Visit: INFLUENZA DUE TO INFLUENZA VIRUS,TYPE A HUMAN Current Active Problems CHF (congestive heart failure) (Acute) Diabetes (Acute) Diastolic CHF, acute (Acute) HLD (hyperlipidemia) (Acute) HTN (hypertension) (Acute) Influenza A (Acute) Sepsis (Acute) Viral upper respiratory infection (Acute) Wheezing (Acute) Hospital Course: 88 year old female admitted for acute respiratory failure 2/2 influenza. Pt completed tamiflu. Received 7 days of solumedrol, transitioned to po prednisone taper. Lung exam improved, continue nebs at home. Blood sugars improving. Pt reports feeling better, sob resolved, has mild sob on exertion, pre and post shows no O2 requirement for discharge. Leukocytosis noted, 2/2 CLL, discussed w / , no further intervention. Pt is medically stable for discharge home. Follow up as directed. Condition: Improved - Instructions Diet, Activity, Other Instructions: ambulate/diet as tolerated START PREDNISONE TOMORROW AND DECREASE EVERY 3 DAYS DIRECTED - TAKE WITH FOOD CONTINUE HOME MEDS FOLLOW UP IN 1 WEEK Referrals: Wilbert Morgan MD [Staff Physician] - 1 Week Disposition: VNS/HOME HEALTH CARE - Home Medications Comprehensive Discharge Medication List: Ambulatory Orders Cholecalciferol (Vitamin D3) [Vitamin D3 -] 1,000 unit PO DAILY 12/18/17 Cyanocobalamin (Vitamin B-12) [Vitamin B-12] 1,000 mcg PO DAILY 12/18/17 Furosemide [Lasix] 40 mg PO DAILY 12/18/17 Metoprolol Tartrate 25 mg PO BID 12/18/17 Simvastatin 40 mg PO DAILY 12/18/17 metFORMIN HCL [Metformin HCl] 500 mg PO DAILY 12/18/17 Albuterol 0.083% Nebulizer Chrissie [Ventolin 0.083% Nebulizer Soln -] 1 amp NEB Q4H PRN #14 amp 08/30/18 Pantoprazole Sodium [Protonix -] 40 mg PO DAILY 14 Days #14 tablet.ec 08/30/18 Prednisone [Deltasone] See Taper PO DAILY #20 tablet 08/30/18 Salmeterol/Fluticasone [Advair 100Mcg/50Mcg -] 1 inh PO BID 14 Days #1 diskus
[2018-08-30] MEDS ORDERED: DEXTROSE 5%-WATER - 50 ML IVPB ONE (10:20)
[2018-08-30] MEDS ORDERED: cefTRIAXone SODIUM 1 GM VIAL ONE (10:20)
[2018-08-30] MEDS: CEFTRIAXONE 1 GM in DEXTROSE 5%-WATER - 50 ML IVPB SCH (10:25)
[2018-08-30] MEDS: CYANOCOBALAMIN 1,000 MCG TABLET (FP) PO SCH (10:26)
[2018-08-30] MEDS: POLYETHYLENE GLYCOL 3350 119 GM BTL PO SCH (10:26)
[2018-08-30] MEDS: methylPREDNISolone NA SUCC 40 MG/1 ML VIAL IVPUSH SCH (10:26)
[2018-08-30] MEDS: PANTOPRAZOLE 40 MG TABLET (FP) PO SCH (10:26)
[2018-08-30] MEDS: METOPROLOL TARTRATE 25 MG TABLET (FP) PO SCH (10:26)
[2018-08-30] MEDS: DOCUSATE SODIUM 100 MG CAPSULE (FP) PO SCH (10:26)
[2018-08-30] MEDS: LACTOBACILLUS ACIDOPHILUS 1 TABLET PO SCH (10:26)
[2018-08-30] MEDS: CHOLECALCIFEROL (VITAMIN D3) 1,000 UNIT TABLET (FP) PO SCH (10:26)
--- NOTE | 2018-08-30 11:18 | PN ---
Physical Exam: SUBJECTIVE: Patient seen and examined; no events ON; still sob with hoarse voice ; although improved. cough improved OBJECTIVE: Vital Signs Period Temp Pulse Resp BP Sys/Molina Pulse Ox Last 24 Hr 97.4 F-98.2 F 62-89 16-20 118-155/57-81 91-95 GENERAL: The patient is awake, alert, and fully oriented, sitting up in chair, s /p breathing treatment HEAD: Normal with no signs of trauma. LUNGS: scattered rhonchi with wheeze. HEART: Regular rate and rhythm, S1, S2 without murmur, rub or gallop. ABDOMEN: Soft, nontender, nondistended, normoactive bowel sounds, no guarding, no rebound, no hepatosplenomegaly, no masses. EXTREMITIES: 2+ pulses, warm, well-perfused, no edema. NEUROLOGICAL: Cranial nerves II through XII grossly intact. Normal speech, gait not observed. PSYCH: Normal mood, normal affect. SKIN: Warm, dry, normal turgor, no rashes or lesions noted Laboratory Results - last 24 hr 0 08/29/18 08/29/18 08/29/18 06:50 11:51 16:54 WBC RBC Hgb Hct MCV MCH MCHC RDW Plt Count MPV Absolute Neuts (auto) Neutrophils % Neutrophils % (Manual) 19.0 L Band Neutrophils % 0.0 Lymphocytes % Lymphocytes % (Manual) 74.0 H Monocytes % Monocytes % (Manual) 1 L Eosinophils % Eosinophils % (Manual) 0.0 Basophils % Basophils % (Manual) 0.0 Myelocytes % (Man) 1 D Promyelocytes % (Man) 0 Blast Cells % (Manual) 0 Nucleated RBC % Metamyelocytes 0 Hypochromia 0 Platelet Estimate Normal Polychromasia 0 Poikilocytosis 1+ Anisocytosis 1+ Microcytosis 1+ Macrocytosis 0 Spherocytes 1+ Ovalocytes 1+ Sodium Potassium Chloride Carbon Dioxide Anion Gap BUN Creatinine Creat Clearance w eGFR POC Glucometer 141 248 Random Glucose Calcium 08/29/18 08/30/18 08/30/18 21:21 06:00 06:00 WBC 31.5 H* RBC 4.12 Hgb 12.2 Hct 37.0 MCV 89.9 MCH 29.6 MCHC 32.9 RDW 13.9 Plt Count 181 MPV 9.7 Absolute Neuts (auto) 6.7 Neutrophils % 21.2 L Neutrophils % (Manual) Band Neutrophils % Lymphocytes % 77.4 H Lymphocytes % (Manual) Monocytes % 1.2 L Monocytes % (Manual) Eosinophils % 0.0 Eosinophils % (Manual) Basophils % 0.2 Basophils % (Manual) Myelocytes % (Man) Promyelocytes % (Man) Blast Cells % (Manual) Nucleated RBC % 0 Metamyelocytes Hypochromia Platelet Estimate Polychromasia Poikilocytosis Anisocytosis Microcytosis Macrocytosis Spherocytes Ovalocytes Sodium 135 L Potassium 4.5 Chloride 104 Carbon Dioxide 26 Anion Gap 5 L BUN 35 H Creatinine 1.0 Creat Clearance w eGFR 52.20 POC Glucometer 167 Random Glucose 197 H Calcium 8.0 L 08/30/18 06:09 WBC RBC Hgb Hct MCV MCH MCHC RDW Plt Count MPV Absolute Neuts (auto) Neutrophils % Neutrophils % (Manual) Band Neutrophils % Lymphocytes % Lymphocytes % (Manual) Monocytes % Monocytes % (Manual) Eosinophils % Eosinophils % (Manual) Basophils % Basophils % (Manual) Myelocytes % (Man) Promyelocytes % (Man) Blast Cells % (Manual) Nucleated RBC % Metamyelocytes Hypochromia Platelet Estimate Polychromasia Poikilocytosis Anisocytosis Microcytosis Macrocytosis Spherocytes Ovalocytes Sodium Potassium Chloride Carbon Dioxide Anion Gap BUN Creatinine Creat Clearance w eGFR POC Glucometer 198 Random Glucose Calcium Active Medications Generic Name Dose Route Start Last Admin Trade Name Freq PRN Reason Stop Dose Admin Acetaminophen 650 mg 08/22/18 17:51 Tylenol - PO Q4H PRN FEVER Albuterol Sulfate 1 amp 08/24/18 08:21 08/28/18 00:21 Ventolin 0.083% Nebulizer Soln - NEB 1 amp Q4H PRN Administration SHORT OF BREATH/WHEEZING Albuterol/Ipratropium 1 amp 08/24/18 12:00 08/30/18 08:06 Duoneb - NEB 1 amp RQID [facility] Administration Atorvastatin Calcium 20 mg 08/22/18 22:00 08/29/18 21:23 Lipitor - PO 20 mg HS [facility] Administration Cholecalciferol 1,000 unit 08/23/18 10:00 08/30/18 10:26 Vitamin D3 - PO 1,000 unit DAILY [facility] Administration Cyanocobalamin 1,000 mcg 08/23/18 10:00 08/30/18 10:26 Vitamin B12 - PO 1,000 mcg DAILY [facility] Administration Docusate Sodium 300 mg 08/29/18 10:00 08/30/18 10:26 Colace - PO Not Given DAILY [facility] Insulin Aspart 0 units 08/24/18 11:00 08/30/18 06:12 Novolog Vial SQ 2 unit ACHS [facility] Administration Protocol Lactobacillus Acidophilus 1 tab 08/24/18 16:30 08/30/18 10:26 Bacid - PO 1 tab DAILY [facility] Administration Metoprolol Tartrate 25 mg 08/22/18 22:00 08/30/18 10:26 Lopressor - PO 25 mg BID [facility] Administration Pantoprazole Sodium 40 mg 08/26/18 17:30 08/30/18 10:26 Protonix - PO 40 mg DAILY [facility] Administration Polyethylene Glycol 17 gm 08/29/18 10:00 08/30/18 10:26 Miralax (For Daily Use) - PO Not Given DAILY [facility] ASSESSMENT/PLAN: 88 y/o female with hypertension, HLD, DM, CLL and recently diagnosed influenza on tamiflu. #leukocytosis #lymphocytosis #influenza A+ #reactive airway disease -leukocytotos with lymphocytosis;(on steriods and has CLL); +for influenza; -cont tamiflu -inhaled broncodilators going home today Visit type - Emergency Visit Emergency Visit: Yes ED Registration Date: 08/22/18 Care time: The patient presented to the Emergency Department on the above date and was hospitalized for further evaluation of their emergent condition. - New Patient This patient is new to me today: No - Critical Care Critical Care patient: No
[2018-08-30 12:08] LABS: ANISOCYTOSIS 0; MACROCYTOSIS 0; PLATELET ESTIMATE NORMAL
[2018-08-30 13:03] VITALS: BP 145/74; PULSE 79; TEMP 98.1
== END 2018-08-30 14:48 | disposition home health service (06) | DRG 872 ==
LOC: JER 13:03 → JERBED 16:39 → J7W 08-23 01:24 → J4S 08-23 19:07
PROVIDERS: ADMIT Internal Medicine; ATTEND Nurse Practitioner Family
DX: A41.9 Sepsis, unspecified organism (principal); I50.32 Chronic diastolic (congestive) heart failure; C91.10 Chronic lymphocytic leukemia of B-cell type not having achieved remission; J44.1 Chronic obstructive pulmonary disease with (acute) exacerbation; N39.0 Urinary tract infection, site not specified; G47.33 Obstructive sleep apnea (adult) (pediatric); E78.5 Hyperlipidemia, unspecified; E11.9 Type 2 diabetes mellitus without complications; Z85.3 Personal history of malignant neoplasm of breast; I11.0 Hypertensive heart disease with heart failure; H54.8 Legal blindness, as defined in USA; Z79.84 Long term (current) use of oral hypoglycemic drugs; J11.1 Influenza due to unidentified influenza virus with other respiratory manifestations; R19.7 Diarrhea, unspecified; B96.1 Klebsiella pneumoniae [K. pneumoniae] as the cause of diseases classified elsewhere
CPT/HCPCS: 36415; 71045-TC-FY; 76775-TC; 80048; 80053; 81003; 81015; 82550; 82803; 82962; 83605; 83690; 83735; 83880; 84100; 84484; 85025; 85027; 85610; 85730; 87040; 87081; 87086; 87186; 87804; 93005; 93010; 94640; 94761; 97116-GP; 97161-GP; 99285-25; J0131; J7030

== ENCOUNTER 2018-09-01 05:09 | Inpatient (IN) | payer OTHER, BC ==
[2018-09-01 05:20] VITALS: BMI 30.7
[2018-09-01] MEDS ORDERED: FAMOTIDINE 20 MG/50 ML IVPB 20 MG/50 ML MG IVPB ONE ×2 (05:40→06:57)
[2018-09-01] MEDS ORDERED: SODIUM CHLORIDE 500 ML IV STA (05:40)
[2018-09-01] MEDS ORDERED: ONDANSETRON 4 MG/2 ML VIAL IVPUSH ONE (05:40)
[2018-09-01] MEDS ORDERED: ALBUTEROL SO4 2.5/IPRATROPIUM 0.5 INH SOL 3 ML VIAL.NEB. NEB ONE ×2 (05:41→06:56)
[2018-09-01] MEDS ORDERED: methylPREDNISolone NA SUCC 125 MG/2 ML VIAL IVPB ONE (05:41)
--- NOTE | 2018-09-01 05:45 | PDOC ---
Attending Attestation - Resident Resident Name: Bruno Valladares - ED Attending Attestation I have performed the following: I have examined & evaluated the patient, The case was reviewed & discussed with the resident, I agree w/resident's findings & plan - HPI HPI: 09/01/18 07:00 Pt was just discharged from the hospital and she feels lousyand she came back, as she has left sided abd pain. Pt states that all she ate was pastina and bread, and - Physicial Exam PE: 09/02/18 02:28 Agree with resident exam. Pt has milr rebound and left sided abd pain. She has no right sided pain and she has no flank pain bilaterally. Pt is afebrile. - Medical Decision Making 09/02/18 02:29 Pt has all labs pending and she will be signed out to the day team and she will be admitted, as needed.
--- NOTE | 2018-09-01 06:00 | PDOC ---
History of Present Illness - General Chief Complaint: Pain Stated Complaint: ABD PAIN Time Seen by Provider: 09/01/18 05:31 History Source: Patient Exam Limitations: No Limitations - History of Present Illness Initial Comments: 09/01/18 05:59 Patient is 88F with history of recent admission for influenza and UTI, HTN, DM, s/p cody here today complaining of abdominal pain and weakness. Patient states that she had some left sided abdominal pain that radiates to her back. Endorses nausea, denies vomiting. Denies fevers, chills. Patient endorses associated shortness of breath, denies chest pain. Patient states that she was unable to take her steroid taper because she did not know what she was supposed to take. Patient was recently treated for klebsiella uti with ceftriaxone for one week. Past History - Past Medical History Allergies/Adverse Reactions: Allergies Allergy/AdvReac Type Severity Reaction Status Date / Time aspirin Allergy "FACIAL Verified 09/01/18 05:20 SWELLING" Home Medications: Ambulatory Orders Cholecalciferol (Vitamin D3) [Vitamin D3 -] 1,000 unit PO DAILY 12/18/17 Cyanocobalamin (Vitamin B-12) [Vitamin B-12] 1,000 mcg PO DAILY 12/18/17 Metoprolol Tartrate 25 mg PO BID 12/18/17 Simvastatin 40 mg PO DAILY 12/18/17 metFORMIN HCL [Metformin HCl] 500 mg PO DAILY 12/18/17 Albuterol 0.083% Nebulizer Chrissie [Ventolin 0.083% Nebulizer Soln -] 1 amp NEB Q4H PRN #14 amp 08/30/18 Pantoprazole Sodium [Protonix -] 40 mg PO DAILY 14 Days #14 tablet.ec 08/30/18 Prednisone [Deltasone] See Taper PO DAILY #20 tablet 08/30/18 Salmeterol/Fluticasone [Advair 100Mcg/50Mcg -] 1 inh PO BID 14 Days #1 diskus Anemia: No Asthma: No Cancer: Yes (leukemia and right breast) Cardiac Disorders: No CVA: No COPD: No CHF: Yes DVT: No Dementia: No Diabetes: Yes GI Disorders: No Disorders: No HTN: Yes Hypercholesterolemia: Yes Liver Disease: No Seizures: No Thyroid Disease: No - Surgical History Abdominal Surgery: No Appendectomy: No Cardiac Surgery: Yes ("STENT PLACED AND THEN REMOVED") Cholecystectomy: Yes Lung Surgery: No Neurologic Surgery: No Orthopedic Surgery: No - Immunization History Immunization Up to Date: No - Suicide/Smoking/Psychosocial Hx Smoking Status: No Smoking History: Never smoked Have you smoked in the past 12 months: No Number of Cigarettes Smoked Daily: 0 Information on smoking cessation initiated: No Hx Alcohol Use: No Drug/Substance Use Hx: No Substance Use Type: None Hx Substance Use Treatment: No Review of Systems - Review of Systems Comments:: 09/01/18 06:29 GENERAL/CONSTITUTIONAL: No fever or chills. No weakness. HEAD, EYES, EARS, NOSE AND THROAT: No change in vision. No sore throat. CARDIOVASCULAR: No chest pain +shortness of breath RESPIRATORY: No cough, wheezing, or hemoptysis. GASTROINTESTINAL: +nausea, no vomiting, diarrhea or constipation. GENITOURINARY: No dysuria, frequency, or change in urination. MUSCULOSKELETAL: No joint or muscle swelling or pain. No neck or back pain. SKIN: No rash NEUROLOGIC: No headache, vertigo, loss of consciousness, or change in strength/ sensation. ENDOCRINE: No increased thirst. No abnormal weight change HEMATOLOGIC/LYMPHATIC: No anemia, easy bleeding, or history of blood clots. ALLERGIC/IMMUNOLOGIC: No hives or skin allergy. *Physical Exam - Vital Signs Last Vital Signs Temp Pulse Resp BP Pulse Ox 97.7 F 76 18 153/84 96 09/01/18 05:13 09/01/18 05:13 09/01/18 05:13 09/01/18 05:13 09/01/18 05:13 - Physical Exam Comments: 09/01/18 06:30 GENERAL: Awake, alert, and fully oriented HEAD: No signs of trauma, normocephalic, atraumatic EYES: PERRLA, EOMI, sclera anicteric, conjunctiva clear ENT: Auricles normal inspection, hearing grossly normal, nares patent, oropharynx clear without exudates. Dry mucosa NECK: Normal ROM, supple, no lymphadenopathy, JVD, or masses LUNGS: No distress, speaks full sentences, wheezing bilaterally HEART: Regular rate and rhythm, normal S1 and S2, no murmurs, rubs or gallops, peripheral pulses normal and equal bilaterally. ABDOMEN: Diffusely tender, left more than right, +guarding EXTREMITIES: Normal inspection, Normal range of motion, no edema. No clubbing or cyanosis. NEUROLOGICAL: Cranial nerves II through XII grossly intact. Normal speech, no focal sensorimotor deficits SKIN: Warm, Dry, normal turgor, no rashes or lesions noted. Moderate Sedation - Procedure Monitoring Vital Signs: Procedure Monitoring Vital Signs Temperature 97.7 F 09/01/18 05:13 Pulse Rate 76 09/01/18 05:13 Respiratory Rate 18 09/01/18 05:13 Blood Pressure 153/84 09/01/18 05:13 O2 Sat by Pulse Oximetry (%) 96 09/01/18 05:13 ED Treatment Course - LABORATORY CBC & Chemistry Diagram: 09/01/18 12:50 09/01/18 06:25 - RADIOLOGY Radiology Studies Ordered: Category Date Time Status ABDOMEN & PELVIS CT WITH CONTR [CT] Stat CT Scan 09/01/18 05:42 Ordered Medical Decision Making - Medical Decision Making 09/01/18 06:30 Patient is 88F with history of recent hospitalization, uti, influenza, htn, dm here today with abdominal pain and shortness of breath. Vitals normal and stable. Tender on abdominal exam, diffusely wheezing bilaterally. Good distal pulses. DDx includes, but is not limited to: acs, pneumonia, diverticulitis, uti. Broad workup initiated, including cbc, cmp, trop, ekg, pt/inr, type and screen, lactate, ua/uc, cxr, ct a/p. Patient will be signed out to day team, likely admission. *DC/Admit/Observation/Transfer Diagnosis at time of Disposition: Hydronephrosis with renal and ureteral calculus obstruction - Discharge Dispostion Condition at time of disposition: Stable - Referrals - Patient Instructions - Post Discharge Activity
[2018-09-01] MEDS ORDERED: methylPREDNISolone NA SUCC 125 MG/2 ML VIAL ONE (06:56)
[2018-09-01] MEDS ORDERED: ONDANSETRON 4 MG/2 ML VIAL ONE (06:56)
[2018-09-01] MEDS ORDERED: POLYETHYLENE GLYCOL 3350 119 GM BTL PO ONE (07:07)
--- NOTE | 2018-09-01 07:11 | PDOC ---
*Physical Exam - Vital Signs Last Vital Signs Temp Pulse Resp BP Pulse Ox 97.7 F 76 18 153/84 96 09/01/18 05:13 09/01/18 05:13 09/01/18 05:13 09/01/18 05:13 09/01/18 05:13 - Physical Exam Comments: Constitutional: Non-toxic elderly female in no acute distress or obvious discomfort. Found semi-fowlers on hospital bed. Alert and oriented x4. Answered all questions appropriately and completely. Speech was non-labored, non- pressured. Head: Normocephalic. No obvious external signs of trauma. Ears: Hearing grossly intact. Nose: No nasal discharge. Neck: Supple, trachea is midline. Cardiovascular / Chest: Regular rate and regular rhythm. No murmur, rubs, clicks, or gallops. Peripheral pulses: radial pulses full. Respiratory: Breathing unlabored. Equal chest rise and fall. Mild expiratory wheezing diffusely. No stridor or rhonchi. Gastrointestinal: abdomen is tender in LLQ with grimace but not rebound or guarding. Globally, abdomen is protuberant but not taught. No overlying skin lesions or obvious signs of trauma. Neuro: Alert and oriented. Moving all four extremities spontaneously. Skin: Warm and dry. Psych: Affect: appropriate. Mood: normal. ED Treatment Course - LABORATORY CBC & Chemistry Diagram: 09/01/18 12:50 09/01/18 06:25 - Medications Given in the ED: ED Medications Discontinued Medications Generic Name Dose Route Start Last Admin Trade Name Freq PRN Reason Stop Dose Admin Albuterol/Ipratropium 1 amp 09/01/18 05:41 09/01/18 07:06 Duoneb - NEB 09/01/18 05:42 1 amp ONCE ONE Administration Famotidine/Sodium Chloride 20 mg in 50 mls @ 100 mls/hr 09/01/18 05:40 07:04 Pepcid 20 Mg Premixed Ivpb - IVPB 09/01/18 06:09 100 mls/hr ONCE ONE Administration Sodium Chloride 500 mls @ 500 mls/hr 09/01/18 05:40 09/01/18 06:53 Normal Saline - IV 09/01/18 06:39 500 mls/hr ASDIR STA Administration Methylprednisolone Sodium Succinate 125 mg 09/01/18 05:41 09/01/18 07:06 Solu-Medrol - IVPB 09/01/18 05:42 125 mg ONCE ONE Administration Ondansetron HCl 4 mg 09/01/18 05:40 09/01/18 07:06 Zofran Injection IVPUSH 09/01/18 05:41 4 mg ONCE ONE Administration Medical Decision Making - Medical Decision Making 09/01/18 07:00 Received sign out from resident Dr. Valladares. In short, the pt is a 88 y/o female complaining of vague SOB, wheezing, left sided abdominal pain, and generalized weakness. Recently discharged for COPD exacerbation versus respiratory distress likely secondary to influenza A infection. Was discharged on PO prednisone taper but did not use any of the prescription. CT scan revealed 7mm x 3mm proximal left ureteral calculus with resultant hydronephrosis as well as 7mm x 2 mm urinary bladder calculus. Likely the source of the pt's discomfort. Will follow up on pending labs and imaging. Dispo depending on reassessment and results. CBC remarkable for luekocytosis likely secondary to CLL diagnosis. BMP unremarkable for significant electrolyte derangement. UA unremarkable for pyuria, nitrites, or leukocyte esterase. Low suspicion for cystitis versus pyonephritis. 09/01/18 12:08 Telephone page sent to Dr. Navarro, pt's urologist, through answering service. 09/01/18 12:[address] Nallely Navarro. Verbally appraised of the pts HPI, ED course, and current plan of management. Requests pt be admitted to the hospital and made NPO after midnight. Will evaluate the pt tomorrow. Telephone consultation with Danielle Araujo attending. Verbally appraised of the pts HPI, ED course, and current plan of management. Will admit pt to med /surg on inpatient status. *DC/Admit/Observation/Transfer Diagnosis at time of Disposition: Hydronephrosis with renal and ureteral calculus obstruction - Discharge Dispostion Condition at time of disposition: Stable Decision to Admit order: Yes - Referrals - Patient Instructions - Post Discharge Activity
[2018-09-01 07:47] LABS: ALBUMIN 2.7 g/dl (3.4-5.0); ALK PHOS 63 U/L (45-117); ANION GAP 9 MMOL/L (8-16); BILIRUBIN,TOTAL 0.7 mg/dL (0.2-1); BLOOD UREA NITROGEN 26 mg/dL (7-18); CALCIUM 7.7 mg/dL (8.5-10.1); CHLORIDE 105 mmol/L (98-107); CO2 24 mmol/L (21-32); CREATININE 0.8 mg/dL (0.55-1.3); GLUCOSE,RANDOM 150 mg/dL (74-106); LIPASE 650 U/L (73-393); POTASSIUM 3.9 mmol/L (3.5-5.1); SGOT/AST 13 U/L (15-37); SGPT/ALT 30 U/L (13-61); SODIUM 137 mmol/L (136-145); TOT PROT 5.5 g/dl (6.4-8.2)
[2018-09-01 09:21] LABS: INR 0.92 (0.83-1.09); PROTHROMBIN TIME (PATIENT) 10.8 SEC (9.7-13.0)
[2018-09-01 11:16] LABS: URINE APPEARANCE CLEAR; URINE BILIRUBIN NEGATIVE (<2.0 mg/dL); URINE COLOR STRAW; URINE GLUCOSE (UA) NEGATIVE (NEGATIVE); URINE KETONE TRACE (NEGATIVE); URINE LEUK ESTERASE TRACE (NEGATIVE); URINE NITRITE NEGATIVE (NEGATIVE); URINE PROTEIN NEGATIVE (NEGATIVE); URINE UROBILINOGEN NEGATIVE mg/dL (0.2-1.0)
--- NOTE | 2018-09-01 12:46 | EKG ---
Test Reason : Blood Pressure : / mmHG Vent. Rate : 078 BPM Atrial Rate : 078 BPM P-R Int : 150 ms QRS Dur : 074 ms QT Int : 414 ms P-R-T Axes : 059 -07 012 degrees QTc Int : 471 ms NORMAL SINUS RHYTHM NONSPECIFIC ST AND T WAVE ABNORMALITY ABNORMAL ECG Confirmed by RADHA VAZQUEZ MD ([id number]) on 09/01/2018 12:46:16 PM Referred By: Confirmed By:RADHA VAZQUEZ MD
[2018-09-01 12:48] LABS: EPI CELLS FEW /HPF (FEW)
[2018-09-01 13:28] LABS: BASO % 0.2 % (0-2.0); HEMATOCRIT 39.5 % (32.4-45.2); HEMOGLOBIN 13.1 GM/dL (10.7-15.3); LYMPH % 71.8 % (8-40); MCH 29.7 pg (25.7-33.7); MCHC 33.1 g/dl (32.0-36.0); MEAN CELL VOLUME 89.8 fl (80-96); MEAN PLT VOLUME 9.4 fl (7.5-11.1); MONO % 0.5 % (3.8-10.2); NEUT % 27.5 % (42.8-82.8); PLATELET COUNT 198 K/MM3 (134-434); RBC 4.39 M/mm3 (3.60-5.2); RDW 14.4 % (11.6-15.6)
[2018-09-01 13:44] LABS: WHITE BLOOD COUNT 32.3 K/mm3 (4.0-10.0)
--- NOTE | 2018-09-01 15:49 | HP ---
CHIEF COMPLAINT: left sided abdominal pain PCP: Dr. Morgan HISTORY OF PRESENT ILLNESS: 88 yof with PMHx of HTN, HLD, CLL, HFpEF, ODALIS, Remote breast ca s/p mastectomy, legally blind, left nephrolithiasis s/p ureteral stent 02/2016, UTI with septic shock after stent removal in 05/2016, recently admitted to [facility] with Influenza A /Bronchitis/UTI, treated with tamiflu/ceftriaxone, sent on prednisone taper on , comes back with left sided abdominal pain radiating to left flank, similar to prior kidney stone, prompting her to come to ED. reports some dysuria. Reports has chronic left sided abdominal pain, which got worse over last 2 days. Also since her discharge, picked up her prednisone, but has not taken it as was not sure how to take it and was waiting for VNS to come home and direct her today. Has only been taking her metoprolol and metformin. 12 point ROS done, weakness since her recent d.c. Positive for constipation. ER course was notable for: (1) Solumedrol 125 mg IV (2) CT A/p showing ureteral stone with left hydronephrosis/bladder stone (3)Urology consulted Dr. Navarro Recent Travel: denies PAST MEDICAL HISTORY: HTN, HLD, CLL, HFpEF, ODALIS, Remote breast ca s/p mastectomy,left nephrolithiasis s/p ureteral stent 02/2016, UTI with septic shock after stent removal in 05/2016, recently admitted to [facility] with Influenza A /Bronchitis/UTI, treated with tamiflu/ceftriaxone, sent on prednisone taper on PAST SURGICAL HISTORY: mastectomy, left ureteral stent placement and exchange Social History: Smoking: Never smoked Alcohol: occasional wine Drugs: Denies lives alone, VNS, independent in ADLs, Family History: Allergies aspirin Allergy (Verified 09/01/18 05:20) "FACIAL SWELLING" HOME MEDICATIONS: Home Medications Medication Instructions Recorded Cholecalciferol (Vitamin D3) 1,000 unit PO DAILY 12/18/17 [Vitamin D3 -] Cyanocobalamin (Vitamin B-12) 1,000 mcg PO DAILY 12/18/17 [Vitamin B-12] Furosemide [Lasix] 40 mg PO DAILY 12/18/17 Metoprolol Tartrate 25 mg PO BID 12/18/17 Simvastatin 40 mg PO DAILY 12/18/17 metFORMIN HCL [Metformin HCl] 500 mg PO DAILY 12/18/17 Albuterol 0.083% Nebulizer Chrissie 1 amp NEB Q4H PRN #14 amp 08/30/18 [Ventolin 0.083% Nebulizer Soln -] Pantoprazole Sodium [Protonix -] 40 mg PO DAILY 14 Days #14 08/30/18 tablet.ec Prednisone [Deltasone] See Taper PO DAILY #20 tablet 08/30/18 Salmeterol/Fluticasone [Advair 1 inh PO BID 14 Days #1 diskus 08/30/18 100Mcg/50Mcg -] REVIEW OF SYSTEMS CONSTITUTIONAL: Present: generalized weakness Absent: fever, chills, diaphoresis,, malaise, loss of appetite, weight change HEENT: Absent: rhinorrhea, nasal congestion, throat pain, throat swelling, difficulty swallowing, mouth swelling, ear pain, eye pain, visual changes CARDIOVASCULAR: Absent: chest pain, syncope, palpitations, irregular heart rate, lightheadedness , peripheral edema RESPIRATORY: Present: Dyspnea, cough Absent: Orthopnea, wheezing, stridor, hemoptysis GASTROINTESTINAL: Present: Abdominal pain Absent: Abdominal distension, nausea, vomiting, diarrhea, constipation, melena, hematochezia GENITOURINARY: Present: dysuria, flank pain Absent frequency, urgency, hesitancy, hematuria, flank pain, genital pain MUSCULOSKELETAL: Absent: myalgia, arthralgia, joint swelling, back pain, neck pain SKIN: Absent: rash, itching, pallor ENDOCRINE: Absent: unexplained weight gain, unexplained weight loss, heat intolerance, cold intolerance NEUROLOGIC: Absent: headache, focal weakness or paresthesias, dizziness, unsteady gait, seizure, mental status changes, bladder or bowel incontinence PSYCHIATRIC: Absent: anxiety, depression, suicidal or homicidal ideation, hallucinations. PHYSICAL EXAMINATION Vital Signs - 24 hr 09/01/18 09/01/18 09/01/18 05:13 08:07 15:04 Temperature 97.7 F 98.7 F Pulse Rate 76 Pulse Rate [ 90 88 Left] Respiratory 18 16 16 Rate Blood Pressure 153/84 Blood Pressure 152/89 122/69 [Arm] O2 Sat by Pulse 96 100 98 Oximetry (%) GENERAL: Awake, alert, and fully oriented, in no acute distress. HEAD: Normal with no signs of trauma. EYES: Left eye corneal opacification EARS, NOSE, THROAT: Ears normal, nares patent, oropharynx clear without exudates. Moist mucous membranes. NECK:soft, supple, no JVD noted. LUNGS: bilateral expiratory wheezing, no rales, positive air entry HEART: Regular rate and rhythm, normal S1 and S2 ABDOMEN: Soft, ND, tenderness in LMQ, left CVA tenderness, wanting to void when palpating in suprapubic region, no voluntary or involuntary guarding or rigidity MUSCULOSKELETAL: Positive CVA tenderness UPPER EXTREMITIES: Warm, well-perfused. No cyanosis. No clubbing. No peripheral edema. LOWER EXTREMITIES: Warm, well-perfused. No calf tenderness. No peripheral edema. NEUROLOGICAL: AAOx3, power 5/5, sensation intact to light touch, facial symmetry, Left eye corneal opacification PSYCHIATRIC: Cooperative. Good eye contact. Appropriate mood and affect. SKIN: Warm, dry, normal turgor, no rashes or lesions noted, normal capillary refill. Laboratory Results - last 24 hr 09/01/18 09/01/18 09/01/18 06:25 06:25 06:25 WBC RBC Hgb Hct MCV MCH MCHC RDW Plt Count No Result Required. MPV No Result Required. Absolute Neuts (auto) Neutrophils % No Result Required. Neutrophils % (Manual) No Result Required. Lymphocytes % No Result Required. Monocytes % Eosinophils % Basophils % Nucleated RBC % PT with INR INR Sodium 137 Potassium 3.9 Chloride 105 Carbon Dioxide 24 Anion Gap 9 BUN 26 H Creatinine 0.8 Creat Clearance w eGFR > 60 Random Glucose 150 H Lactic Acid 0.7 Calcium 7.7 L Magnesium Total Bilirubin 0.7 AST 13 L ALT 30 Alkaline Phosphatase 63 Creatine Kinase 30 Troponin I < 0.02 Total Protein 5.5 L Albumin 2.7 L Lipase 650 H Urine Color Urine Appearance Urine pH Ur Specific [place] Urine Protein Urine Glucose (UA) Urine Ketones Urine Blood Urine Nitrite Urine Bilirubin Urine Urobilinogen Ur Leukocyte Esterase Urine WBC (Auto) Urine RBC (Auto) Ur Epithelial Cells Blood Type Antibody Screen 09/01/18 09/01/18 09/01/18 06:25 06:25 06:25 WBC RBC Hgb Hct MCV MCH MCHC RDW Plt Count MPV Absolute Neuts (auto) Neutrophils % Neutrophils % (Manual) Lymphocytes % Monocytes % Eosinophils % Basophils % Nucleated RBC % PT with INR 10.80 INR 0.92 Sodium Potassium Chloride Carbon Dioxide Anion Gap BUN Creatinine Creat Clearance w eGFR Random Glucose Lactic Acid Calcium Magnesium 2.1 Total Bilirubin AST ALT Alkaline Phosphatase Creatine Kinase Troponin I Total Protein Albumin Lipase Urine Color Urine Appearance Urine pH Ur Specific [place] Urine Protein Urine Glucose (UA) Urine Ketones Urine Blood Urine Nitrite Urine Bilirubin Urine Urobilinogen Ur Leukocyte Esterase Urine WBC (Auto) Urine RBC (Auto) Ur Epithelial Cells Blood Type A POSITIVE Antibody Screen Negative 09/01/18 09/01/18 10:57 12:50 WBC 32.3 H* RBC 4.39 Hgb 13.1 Hct 39.5 MCV 89.8 MCH 29.7 MCHC 33.1 RDW 14.4 Plt Count 198 MPV 9.4 Absolute Neuts (auto) 8.9 H Neutrophils % 27.5 L D Neutrophils % (Manual) Lymphocytes % 71.8 H Monocytes % 0.5 L Eosinophils % 0.0 Basophils % 0.2 Nucleated RBC % 0 PT with INR INR Sodium Potassium Chloride Carbon Dioxide Anion Gap BUN Creatinine Creat Clearance w eGFR Random Glucose Lactic Acid Calcium Magnesium Total Bilirubin AST ALT Alkaline Phosphatase Creatine Kinase Troponin I Total Protein Albumin Lipase Urine Color Straw Urine Appearance Clear Urine pH 7.0 Ur Specific [place] 1.009 L Urine Protein Negative Urine Glucose (UA) Negative Urine Ketones Trace H Urine Blood 2+ H Urine Nitrite Negative Urine Bilirubin Negative Urine Urobilinogen Negative Ur Leukocyte Esterase Trace Urine WBC (Auto) 6 Urine RBC (Auto) 51 Ur Epithelial Cells Few Blood Type Antibody Screen CT A/P: In comparison to a prior exam of 04/07/2018 interval development of a 0.7 x 0.3 cm proximal left ureteral calculus is noted with resultant hydronephrosis. Note is also made of interval development of a 0.7 x 0.2 cm urinary bladder calculus. The current urinary bladder is approximately 500 mL - ? somewhat prominent physiologic distention versus mild/early retention. Correlate clinically. Sonography may be considered CXR: fluid in major fissure, no acute process EKG: NSR 78 ASSESSMENT/PLAN: 88 yof with PMHx of HTN, HLD, CLL, HFpEF, ODALIS, Remote breast ca s/p mastectomy, left nephrolithiasis s/p ureteral stent 02/2016, UTI with septic shock after stent removal in 05/2016, recently admitted to [facility] with Influenza A/Bronchitis/ UTI, treated with tamiflu/ceftriaxone, sent on prednisone taper on 08/30 admitted with left nephrolithiasis with hydronephrosis. -Left ureteral stone with hydronephrosis/Bladder stone -Recent Influenza A illness -Acute bronchitis -CLL -HFpEF -HTN -HLD -Remote Breast Ca s/p mastectomy Plan: Urology Dr. Navarro consulted from ED. NPO after midnight, possible surgical intervention in AM. Renal function stable. hold lasix. Gentle hydration with monitoring of volume status. Prior h/o septic shock post stent removal. Emperic ceftriaxone. Did not take her prednisone on d.c still with wheezing, resume taper. Standing and prn nebs. Hold metformin. ISS,diabetic diet. Continue metoprolol/statin. Code status: Discussed in detail with patient. wants to be DNR/DNI. Witnessed by HCP rachel Bonner who agrees with the same. DVTPPx heparin, hold pre-op Disposition: admit to inpatient, for IV abx, hydration, urological intervention. PT re-eval and CM consult for d/c planning once improved. Total admit time spent 65 min. Visit type - Emergency Visit Emergency Visit: Yes ED Registration Date: 09/01/18 Care time: The patient presented to the Emergency Department on the above date and was hospitalized for further evaluation of their emergent condition. - New Patient This patient is new to me today: Yes Date on this admission: 09/01/18 - Critical Care Critical Care patient: No
[2018-09-01] MEDS ORDERED: ALBUTEROL SO4 0.083% IH SOL 2.5 MG/3 ML VIAL.NEB. NEB PRN (16:14)
[2018-09-01] MEDS ORDERED: ONDANSETRON 4 MG/2 ML VIAL IVPUSH PRN (16:18)
[2018-09-01] MEDS ORDERED: ACETAMINOPHEN 325 MG TABLET (FP) PO PRN (16:18)
[2018-09-01] MEDS ORDERED: cefTRIAXone SODIUM 1 GM VIAL ONE (16:49)
[2018-09-01] MEDS ORDERED: DEXTROSE 5%-WATER - 50 ML IVPB ONE (16:50)
[2018-09-01] MEDS: SODIUM CHLORIDE 0.45% 1,000 ML IV SCH (16:53)
[2018-09-01] MEDS: CEFTRIAXONE 1 GM in DEXTROSE 5%-WATER - 50 ML IVPB SCH (16:54)
[2018-09-01] MEDS: INSULIN SLIDING SCALE (NOVOLOG) 1 VIAL SQ SCH ×2 (17:10→22:19)
[2018-09-01 17:52] LABS: PLATELET ESTIMATE ADEQUATE
[2018-09-01 17:53] LABS: SMUDGE CELLS FEW
[2018-09-01] MEDS: ALBUTEROL SO4 2.5/IPRATROPIUM 0.5 INH SOL 3 ML VIAL.NEB. NEB SCH (20:25)
[2018-09-01] MEDS ORDERED: PT OWN MED DRAWER 7, Y5N ONE (21:50)
[2018-09-01] MEDS: FLUTICASONE/SALMETEROL 100 MCG/50 MCG DISKUS IH SCH (22:16)
[2018-09-01] MEDS: METOPROLOL TARTRATE 25 MG TABLET (FP) PO SCH (22:17)
[2018-09-02] MEDS: INSULIN SLIDING SCALE (NOVOLOG) 1 VIAL SQ SCH ×4 (06:31→21:30)
[2018-09-02] MEDS ORDERED: PT OWN MED DRAWER 7, Y5N ONE ×2 (06:43→09:39)
[2018-09-02] MEDS: ALBUTEROL SO4 2.5/IPRATROPIUM 0.5 INH SOL 3 ML VIAL.NEB. NEB SCH ×4 (07:15→20:18)
[2018-09-02 08:27] LABS: BASO % 0.1 % (0-2.0); EOS % 0.1 % (0-4.5); HEMATOCRIT 36.4 % (32.4-45.2); MCH 30.1 pg (25.7-33.7); MCHC 33.1 g/dl (32.0-36.0); MEAN CELL VOLUME 91.1 fl (80-96); MEAN PLT VOLUME 9.6 fl (7.5-11.1); MONO % 1.4 % (3.8-10.2); NEUT % 23.4 % (42.8-82.8); PLATELET COUNT 185 K/MM3 (134-434); RDW 14.5 % (11.6-15.6)
[2018-09-02 08:37] LABS: WHITE BLOOD COUNT 32.8 K/mm3 (4.0-10.0)
[2018-09-02 08:51] LABS: ANION GAP 7 MMOL/L (8-16); BLOOD UREA NITROGEN 21 mg/dL (7-18); CHLORIDE 104 mmol/L (98-107); CO2 26 mmol/L (21-32); CREATININE 0.9 mg/dL (0.55-1.3); GLUCOSE,RANDOM 110 mg/dL (74-106); PHOSPHOROUS 2.6 mg/dL (2.5-4.9); POTASSIUM 4.1 mmol/L (3.5-5.1); SODIUM 137 mmol/L (136-145)
[2018-09-02] MEDS ORDERED: cefTRIAXone SODIUM 1 GM VIAL ONE (09:39)
[2018-09-02] MEDS ORDERED: DEXTROSE 5%-WATER - 50 ML IVPB ONE (09:39)
[2018-09-02] MEDS: FLUTICASONE/SALMETEROL 100 MCG/50 MCG DISKUS IH SCH ×2 (09:43→21:21)
[2018-09-02] MEDS: CEFTRIAXONE 1 GM in DEXTROSE 5%-WATER - 50 ML IVPB SCH (09:45)
[2018-09-02] MEDS: METOPROLOL TARTRATE 25 MG TABLET (FP) PO SCH ×2 (09:45→21:29)
[2018-09-02] MEDS: PANTOPRAZOLE 40 MG TABLET (FP) PO SCH (09:45)
[2018-09-02] MEDS ORDERED: predniSONE 20 MG TABLET (UD) PO SCH (10:00)
[2018-09-02] MEDS ORDERED: CYANOCOBALAMIN 1,000 MCG TABLET (FP) PO SCH (10:00)
[2018-09-02] MEDS ORDERED: CHOLECALCIFEROL (VITAMIN D3) 1,000 UNIT TABLET (FP) PO SCH (10:00)
[2018-09-02 10:05] LABS: ANISOCYTOSIS 2+; MACROCYTOSIS 0; OVALOCYTE 1+; PLATELET ESTIMATE NORMAL
--- NOTE | 2018-09-02 13:27 | PN ---
Physical Exam: SUBJECTIVE: Patient seen and examined no new issues overnight afebrile still complains of pain on left lumbar area. pt might go for procedure today. continue npo OBJECTIVE: Vital Signs Period Temp Pulse Resp BP Sys/Molina Pulse Ox Last 24 Hr 98 F-98.7 F 68-97 16-19 112-152/62-83 98-98 GENERAL: The patient is awake, alert, and fully oriented, in no acute distress. HEAD: Normal with no signs of trauma. ENT: dry mucous membranes. NECK: Trachea midline, full range of motion, supple. LUNGS: Breath sounds equal, clear to auscultation bilaterally, no wheezes, no crackles, no accessory muscle use. HEART: s1s2 normal ABDOMEN: Soft, nontender, nondistended, normoactive bowel sounds, left lumbar are a tenderness rebound, no hepatosplenomegaly, no masses. EXTREMITIES: 2+ pulses, warm, well-perfused, no edema. PSYCH: Normal mood, normal affect. SKIN: Warm, dry, Laboratory Results - last 24 hr 09/01/18 09/01/18 09/01/18 12:50 17:08 21:24 WBC 32.3 H* RBC 4.39 Hgb 13.1 Hct 39.5 MCV 89.8 MCH 29.7 MCHC 33.1 RDW 14.4 Plt Count 198 MPV 9.4 Absolute Neuts (auto) 8.9 H Total Counted 100 Neutrophils % 27.5 L D Neutrophils % (Manual) 26.0 L Band Neutrophils % Lymphocytes % 71.8 H Lymphocytes % (Manual) 71.0 H Monocytes % 0.5 L Monocytes % (Manual) 2 L D Eosinophils % 0.0 Eosinophils % (Manual) 1.0 D Basophils % 0.2 Basophils % (Manual) Myelocytes % (Man) Promyelocytes % (Man) Blast Cells % (Manual) Nucleated RBC % 0 Metamyelocytes Smudge Cells Few Hypochromia Platelet Estimate Adequate Platelet Comment Polychromasia Poikilocytosis Anisocytosis Microcytosis Macrocytosis Ovalocytes Desha Cells Sodium Potassium Chloride Carbon Dioxide Anion Gap BUN Creatinine Creat Clearance w eGFR POC Glucometer 190 223 Random Glucose Calcium Phosphorus Magnesium 09/02/18 09/02/18 09/02/18 06:13 07:00 07:00 WBC 32.8 H* RBC 4.00 Hgb 12.0 Hct 36.4 MCV 91.1 MCH 30.1 MCHC 33.1 RDW 14.5 Plt Count 185 MPV 9.6 Absolute Neuts (auto) 7.7 Total Counted Neutrophils % 23.4 L Neutrophils % (Manual) 28.9 L Band Neutrophils % 0.0 Lymphocytes % 75.0 H Lymphocytes % (Manual) 62.3 H Monocytes % 1.4 L D Monocytes % (Manual) 0 L D Eosinophils % 0.1 D Eosinophils % (Manual) 0.0 D Basophils % 0.1 Basophils % (Manual) 0.0 Myelocytes % (Man) 0 Promyelocytes % (Man) 0 Blast Cells % (Manual) 0 Nucleated RBC % 0 Metamyelocytes 0 Smudge Cells Hypochromia 0 Platelet Estimate Normal Platelet Comment Present Polychromasia 1+ Poikilocytosis 1+ Anisocytosis 2+ Microcytosis 0 Macrocytosis 0 Ovalocytes 1+ Desha Cells 1+ Sodium 137 Potassium 4.1 Chloride 104 Carbon Dioxide 26 Anion Gap 7 L BUN 21 H Creatinine 0.9 Creat Clearance w eGFR 58.95 POC Glucometer 117 Random Glucose 110 H Calcium 8.0 L Phosphorus 2.6 Magnesium 2.0 09/02/18 11:26 WBC RBC Hgb Hct MCV MCH MCHC RDW Plt Count MPV Absolute Neuts (auto) Total Counted Neutrophils % Neutrophils % (Manual) Band Neutrophils % Lymphocytes % Lymphocytes % (Manual) Monocytes % Monocytes % (Manual) Eosinophils % Eosinophils % (Manual) Basophils % Basophils % (Manual) Myelocytes % (Man) Promyelocytes % (Man) Blast Cells % (Manual) Nucleated RBC % Metamyelocytes Smudge Cells Hypochromia Platelet Estimate Platelet Comment Polychromasia Poikilocytosis Anisocytosis Microcytosis Macrocytosis Ovalocytes Desha Cells Sodium Potassium Chloride Carbon Dioxide Anion Gap BUN Creatinine Creat Clearance w eGFR POC Glucometer 141 Random Glucose Calcium Phosphorus Magnesium Active Medications Generic Name Dose Route Start Last Admin Trade Name Freq PRN Reason Stop Dose Admin Acetaminophen 650 mg 09/01/18 16:18 Tylenol - PO Q4H PRN PAIN LEVEL 6-10 Albuterol Sulfate 1 amp 09/01/18 16:14 Ventolin 0.083% Nebulizer Soln - NEB Q4H PRN SHORT OF BREATH/WHEEZING Albuterol/Ipratropium 1 amp 09/01/18 20:00 09/02/18 11:00 Duoneb - NEB 1 amp RQID [facility] Administration Cholecalciferol 1,000 unit 09/02/18 10:00 09/02/18 09:45 Vitamin D3 - PO 1,000 unit DAILY [facility] Administration Cyanocobalamin 1,000 mcg 09/02/18 10:00 09/02/18 09:45 Vitamin B12 - PO 1,000 mcg DAILY [facility] Administration Enoxaparin Sodium 40 mg 09/03/18 10:00 Lovenox - SQ DAILY [facility] Ceftriaxone Sodium 1 gm/ 50 mls @ 100 mls/hr 09/01/18 16:45 09/02/18 09:45 Dextrose IVPB 100 mls/hr DAILY [facility] Administration Protocol Sodium Chloride 1,000 mls @ 75 mls/hr 09/01/18 16:30 09/01/18 16:53 1/2 Normal Saline IV 75 mls/hr ASDIR [facility] Administration Insulin Aspart 1 vial 09/01/18 16:30 09/02/18 11:28 Novolog Vial Sliding Scale - SQ Not Given ACHS [facility] Protocol Metoprolol Tartrate 25 mg 09/01/18 22:00 09/02/18 09:45 Lopressor - PO 25 mg BID [facility] Administration Ondansetron HCl 4 mg 09/01/18 16:18 Zofran Injection IVPUSH Q8H PRN NAUSEA Pantoprazole Sodium 40 mg 09/02/18 10:00 09/02/18 09:45 Protonix - PO 40 mg DAILY [facility] Administration Prednisone 60 mg 09/02/18 10:00 09/02/18 09:45 Deltasone - PO 60 mg DAILY [facility] Administration Fluticasone/Salmeterol 1 puff 09/01/18 22:00 09/02/18 09:43 Advair 100mcg/50mcg - IH 1 puff BID [facility] Administration ASSESSMENT/PLAN: CT A/P: In comparison to a prior exam of 04/07/2018 interval development of a 0.7 x 0.3 cm proximal left ureteral calculus is noted with resultant hydronephrosis. Note is also made of interval development of a 0.7 x 0.2 cm urinary bladder calculus. The current urinary bladder is approximately 500 mL - ? somewhat prominent physiologic distention versus mild/early retention. Correlate clinically. Sonography may be considered CXR: fluid in major fissure, no acute process EKG: NSR 78 ASSESSMENT/PLAN: 88 yof with PMHx of HTN, HLD, CLL, HFpEF, ODALIS, Remote breast ca s/p mastectomy, left nephrolithiasis s/p ureteral stent 02/2016, UTI with septic shock after stent removal in 05/2016, recently admitted to [facility] with Influenza A/Bronchitis/ UTI, treated with tamiflu/ceftriaxone, sent on prednisone taper on 08/30 admitted with left nephrolithiasis with hydronephrosis. -Left ureteral stone with hydronephrosis/Bladder stone continue IV fluid urology consult-- pt might go for procedure today. continue IV antibiotics. monitor intake/ output monitor vitals rise in wbc can be because of steroid--- pt afebrile renal function stable -Recent Influenza A illness continue predisone keep s02> 90 continue nebulizer continue symbicort -CLL wbc 32.8 stable -HFpEF stable -HTN on metoprolol 25 bid -HLD -Remote Breast Ca s/p mastectomy DM bgm sliding scale fluid: 1/2ns 75 ml/hr electrolyte:repeat dariel am nutrition: npo for now gi pro: on protonix dvt pro: lovenox . Visit type - Emergency Visit Emergency Visit: Yes ED Registration Date: 09/01/18 Care time: The patient presented to the Emergency Department on the above date and was hospitalized for further evaluation of their emergent condition. - New Patient This patient is new to me today: Yes Date on this admission: 09/02/18 - Critical Care Critical Care patient: No
--- NOTE | 2018-09-02 14:09 | PN ---
Teaching Attending Note Name of Resident: Kristian Joseph ATTENDING PHYSICIAN STATEMENT I saw and evaluated the patient. I reviewed the resident's note and discussed the case with the resident. I agree with the resident's findings and plan as documented with exceptions below. SUBJECTIVE: Patient seen and examined. Still with left sided abdominal pain. No new dyspnea or wheezing. Wants to revoke her DNR/DNI. OBJECTIVE: Vital Signs Period Temp Pulse Resp BP Sys/Molina Pulse Ox Last 24 Hr 98 F-98.7 F 68-97 -19 112-152/62-83 98-98 Intake & Output 08/30/18 08/31/18 09/01/18 09/02/18 23:59 23:59 23:59 23:59 Intake Total 350 50 Balance 350 50 Weight 142 lb 133 lb General: lying in bed in no acute distress Chest: expiratory wheezing scattered, positive air entry, no rales Abdomen:Soft, LMQ tenderness, no left CVA tenderness, no voluntary or involuntary guarding or rigidity, positive bowel sounds Extremities: no edema Home Medications Medication Instructions Recorded Cholecalciferol (Vitamin D3) 1,000 unit PO DAILY 12/18/17 [Vitamin D3 -] Cyanocobalamin (Vitamin B-12) 1,000 mcg PO DAILY 12/18/17 [Vitamin B-12] Metoprolol Tartrate 25 mg PO BID 12/18/17 Simvastatin 40 mg PO DAILY 12/18/17 metFORMIN HCL [Metformin HCl] 500 mg PO DAILY 12/18/17 Albuterol 0.083% Nebulizer Chrissie 1 amp NEB Q4H PRN #14 amp 08/30/18 [Ventolin 0.083% Nebulizer Soln -] Pantoprazole Sodium [Protonix -] 40 mg PO DAILY 14 Days #14 08/30/18 tablet.ec Prednisone [Deltasone] See Taper PO DAILY #20 tablet 08/30/18 Salmeterol/Fluticasone [Advair 1 inh PO BID 14 Days #1 diskus 08/30/18 100Mcg/50Mcg -] Active Medications Acetaminophen (Tylenol -) 650 mg PO Q4H PRN PRN Reason: PAIN LEVEL 6-10 Albuterol Sulfate (Ventolin 0.083% Nebulizer Soln -) 1 amp NEB Q4H PRN PRN Reason: SHORT OF BREATH/WHEEZING Albuterol/Ipratropium (Duoneb -) 1 amp NEB RQID [facility] Last Admin: 09/02/18 11:00 Dose: 1 amp Cholecalciferol (Vitamin D3 -) 1,000 unit PO DAILY [facility] Last Admin: 09/02/18 09:45 Dose: 1,000 unit Cyanocobalamin (Vitamin B12 -) 1,000 mcg PO DAILY [facility] Last Admin: 09/02/18 09:45 Dose: 1,000 mcg Enoxaparin Sodium (Lovenox -) 40 mg SQ DAILY [facility] Ceftriaxone Sodium 1 gm/ (Dextrose) 50 mls @ 100 mls/hr IVPB DAILY [facility]; Protocol Last Admin: 09/02/18 09:45 Dose: 100 mls/hr Sodium Chloride (1/2 Normal Saline) 1,000 mls @ 75 mls/hr IV ASDIR [facility] Last Admin: 09/01/18 16:53 Dose: 75 mls/hr Insulin Aspart (Novolog Vial Sliding Scale -) 1 vial SQ ACHS [facility]; Protocol Last Admin: 09/02/18 11:28 Dose: Not Given Metoprolol Tartrate (Lopressor -) 25 mg PO BID [facility] Last Admin: 09/02/18 09:45 Dose: 25 mg Ondansetron HCl (Zofran Injection) 4 mg IVPUSH Q8H PRN PRN Reason: NAUSEA Pantoprazole Sodium (Protonix -) 40 mg PO DAILY [facility] Last Admin: 09/02/18 09:45 Dose: 40 mg Prednisone (Deltasone -) 60 mg PO DAILY [facility] Last Admin: 09/02/18 09:45 Dose: 60 mg Fluticasone/Salmeterol (Advair 100mcg/50mcg -) 1 puff IH BID [facility] Last Admin: 09/02/18 09:43 Dose: 1 puff Laboratory Results - last 24 hr 09/01/18 09/01/18 09/01/18 12:50 17:08 21:24 WBC RBC Hgb Hct MCV MCH MCHC RDW Plt Count MPV Absolute Neuts (auto) Total Counted 100 Neutrophils % Neutrophils % (Manual) 26.0 L Band Neutrophils % Lymphocytes % Lymphocytes % (Manual) 71.0 H Monocytes % Monocytes % (Manual) 2 L D Eosinophils % Eosinophils % (Manual) 1.0 D Basophils % Basophils % (Manual) Myelocytes % (Man) Promyelocytes % (Man) Blast Cells % (Manual) Nucleated RBC % Metamyelocytes Smudge Cells Few Hypochromia Platelet Estimate Adequate Platelet Comment Polychromasia Poikilocytosis Anisocytosis Microcytosis Macrocytosis Ovalocytes Jackson Cells Sodium Potassium Chloride Carbon Dioxide Anion Gap BUN Creatinine Creat Clearance w eGFR POC Glucometer 190 223 Random Glucose Calcium Phosphorus Magnesium 09/02/18 09/02/18 09/02/18 06:13 07:00 07:00 WBC 32.8 H* RBC 4.00 Hgb 12.0 Hct 36.4 MCV 91.1 MCH 30.1 MCHC 33.1 RDW 14.5 Plt Count 185 MPV 9.6 Absolute Neuts (auto) 7.7 Total Counted Neutrophils % 23.4 L Neutrophils % (Manual) 28.9 L Band Neutrophils % 0.0 Lymphocytes % 75.0 H Lymphocytes % (Manual) 62.3 H Monocytes % 1.4 L D Monocytes % (Manual) 0 L D Eosinophils % 0.1 D Eosinophils % (Manual) 0.0 D Basophils % 0.1 Basophils % (Manual) 0.0 Myelocytes % (Man) 0 Promyelocytes % (Man) 0 Blast Cells % (Manual) 0 Nucleated RBC % 0 Metamyelocytes 0 Smudge Cells Hypochromia 0 Platelet Estimate Normal Platelet Comment Present Polychromasia 1+ Poikilocytosis 1+ Anisocytosis 2+ Microcytosis 0 Macrocytosis 0 Ovalocytes 1+ Rodrigo Cells 1+ Sodium 137 Potassium 4.1 Chloride 104 Carbon Dioxide 26 Anion Gap 7 L BUN 21 H Creatinine 0.9 Creat Clearance w eGFR 58.95 POC Glucometer 117 Random Glucose 110 H Calcium 8.0 L Phosphorus 2.6 Magnesium 2.0 09/02/18 11:26 WBC RBC Hgb Hct MCV MCH MCHC RDW Plt Count MPV Absolute Neuts (auto) Total Counted Neutrophils % Neutrophils % (Manual) Band Neutrophils % Lymphocytes % Lymphocytes % (Manual) Monocytes % Monocytes % (Manual) Eosinophils % Eosinophils % (Manual) Basophils % Basophils % (Manual) Myelocytes % (Man) Promyelocytes % (Man) Blast Cells % (Manual) Nucleated RBC % Metamyelocytes Smudge Cells Hypochromia Platelet Estimate Platelet Comment Polychromasia Poikilocytosis Anisocytosis Microcytosis Macrocytosis Ovalocytes Rodrigo Cells Sodium Potassium Chloride Carbon Dioxide Anion Gap BUN Creatinine Creat Clearance w eGFR POC Glucometer 141 Random Glucose Calcium Phosphorus Magnesium Microbiology 09/01/18 05:40 Urine - Urine Clean Catch Urine Culture - Final NO GROWTH OBTAINED ASSESSMENT AND PLAN: 88 yof with PMHx of HTN, HLD, CLL, HFpEF, ODALIS, Remote breast ca s/p mastectomy, left nephrolithiasis s/p ureteral stent 02/2016, UTI with septic shock after stent removal in 05/2016, recently admitted to [facility] with Influenza A/Bronchitis/ UTI, treated with tamiflu/ceftriaxone, sent on prednisone taper on 08/30 admitted with left nephrolithiasis with hydronephrosis. -Left ureteral stone with hydronephrosis/Bladder stone -Recent Influenza A illness -Acute bronchitis -CLL -HFpEF -HTN -HLD -Remote Breast Ca s/p mastectomy Plan: For surgical intervention today, discussed with urology. Ceftriaxone day 2, continue ange-procedural given h/o septic shock post stent removal. Renal function stable. hold lasix.Gentle hydration while NPO. Did not take her prednisone on d.c still with wheezing,continue taper. Standing and prn nebs. Hold metformin. ISS,diabetic diet. Continue metoprolol/statin. Code status: patient wants to revoke DNR/DNI,wants everything done. Changed to full code. DVTPPx heparin, hold pre-op Disposition: d/c in 24 hours post procedure if no concerns. Cm consult to resume home VNS/PT on d.c Plan discussed with patient and nursing, all questions answered.
[2018-09-02] MEDS ORDERED: INSULIN (NOVOLOG) ASPART 100 UNITS/ML 10ML VIAL ONE ×2 (16:54→21:28)
[2018-09-02] MEDS: SODIUM CHLORIDE 0.45% 1,000 ML IV SCH (17:04)
--- NOTE | 2018-09-02 17:29 | CONSULT ---
Consult Consult Specialty:: UROLOGY Reason for Consultation:: Left renal colic - History of Present Illness Chief Complaint: 88 Y/O Female patient with history of Left flank pain History of Present Illness: 88 y/o Female patient with history of HT, CLL, HLD, Breast CA and legally blind with history of left flank pain for 2 weeks no dysuria, no gross hematuria. O/E Tender left CVA WBC 32 BUN [address] Scan left proximal ureteric stone 7 mm moderate hydronephrosis. - Past Medical History Cardio/Vascular: Yes: HTN, Hyperlipdemia Renal/: Yes: Renal Calculi, UTI Endocrine: Yes: Diabetes Mellitus - Past Surgical History Past Surgical History: Yes: Cholecystectomy, Mastectomy - Alcohol/Substance Use Hx Alcohol Use: No History of Substance Use: reports: None - Smoking History Smoking history: Never smoked Have you smoked in the past 12 months: No Aproximately how many cigarettes per day: 0 - Social History ADL: Independent History of Recent Travel: No Home Medications - Allergies Allergies/Adverse Reactions: Allergies Allergy/AdvReac Type Severity Reaction Status Date / Time aspirin Allergy "FACIAL Verified 09/01/18 05:20 SWELLING" - Home Medications Home Medications: Ambulatory Orders Cholecalciferol (Vitamin D3) [Vitamin D3 -] 1,000 unit PO DAILY 12/18/17 Cyanocobalamin (Vitamin B-12) [Vitamin B-12] 1,000 mcg PO DAILY 12/18/17 Metoprolol Tartrate 25 mg PO BID 12/18/17 Simvastatin 40 mg PO DAILY 12/18/17 metFORMIN HCL [Metformin HCl] 500 mg PO DAILY 12/18/17 Albuterol 0.083% Nebulizer Chrissie [Ventolin 0.083% Nebulizer Soln -] 1 amp NEB Q4H PRN #14 amp 08/30/18 Pantoprazole Sodium [Protonix -] 40 mg PO DAILY 14 Days #14 tablet.ec 08/30/18 Prednisone [Deltasone] See Taper PO DAILY #20 tablet 08/30/18 Salmeterol/Fluticasone [Advair 100Mcg/50Mcg -] 1 inh PO BID 14 Days #1 diskus Family Disease History - Family Disease History Family Disease History: CA: Mother, Daughter Physical Exam Vital Signs: Vital Signs Temperature 98.5 F 09/02/18 15:46 Pulse Rate 82 09/02/18 15:46 Respiratory Rate 18 09/02/18 09:57 Blood Pressure 130/71 09/02/18 15:46 O2 Sat by Pulse Oximetry (%) 98 09/02/18 09:00 Labs: CBC, BMP 09/02/18 07:00 09/02/18 07:00 Assessment/Plan Left UPJ stone and hydronephrosis. Plan: NPO for tomorrow left URS laser litho and JJ stent insertion.
[2018-09-03] MEDS: INSULIN SLIDING SCALE (NOVOLOG) 1 VIAL SQ SCH ×2 (06:21→22:16)
[2018-09-03] MEDS ORDERED: PT OWN MED DRAWER 7, Y5N ONE (06:45)
[2018-09-03] MEDS: ALBUTEROL SO4 2.5/IPRATROPIUM 0.5 INH SOL 3 ML VIAL.NEB. NEB SCH ×3 (07:35→20:12)
[2018-09-03 07:47] LABS: BASO % 0.1 % (0-2.0); HEMATOCRIT 34.5 % (32.4-45.2); HEMOGLOBIN 11.5 GM/dL (10.7-15.3); LYMPH % 74.2 % (8-40); MCH 29.9 pg (25.7-33.7); MCHC 33.3 g/dl (32.0-36.0); MEAN CELL VOLUME 89.9 fl (80-96); MEAN PLT VOLUME 9.5 fl (7.5-11.1); MONO % 1.5 % (3.8-10.2); NEUT % 24.2 % (42.8-82.8); PLATELET COUNT 165 K/MM3 (134-434); RBC 3.84 M/mm3 (3.60-5.2); RDW 14.3 % (11.6-15.6)
[2018-09-03 07:55] LABS: WHITE BLOOD COUNT 34.2 K/mm3 (4.0-10.0)
[2018-09-03 08:13] LABS: ALBUMIN 2.6 g/dl (3.4-5.0); ALK PHOS 61 U/L (45-117); ANION GAP 6 MMOL/L (8-16); BILIRUBIN,TOTAL 0.7 mg/dL (0.2-1); BLOOD UREA NITROGEN 22 mg/dL (7-18); CALCIUM 7.8 mg/dL (8.5-10.1); CHLORIDE 104 mmol/L (98-107); CO2 27 mmol/L (21-32); CREATININE 0.9 mg/dL (0.55-1.3); GLUCOSE,RANDOM 137 mg/dL (74-106); POTASSIUM 3.9 mmol/L (3.5-5.1); SGOT/AST 11 U/L (15-37); SGPT/ALT 22 U/L (13-61); SODIUM 137 mmol/L (136-145); TOT PROT 5.2 g/dl (6.4-8.2)
[2018-09-03] MEDS ORDERED: cefTRIAXone SODIUM 1 GM VIAL ONE (09:35)
[2018-09-03] MEDS ORDERED: DEXTROSE 5%-WATER - 50 ML IVPB ONE (09:36)
[2018-09-03] MEDS: METOPROLOL TARTRATE 25 MG TABLET (FP) PO SCH ×2 (09:38→22:16)
[2018-09-03] MEDS: PANTOPRAZOLE 40 MG TABLET (FP) PO SCH (09:38)
[2018-09-03] MEDS: CEFTRIAXONE 1 GM in DEXTROSE 5%-WATER - 50 ML IVPB SCH (09:38)
[2018-09-03] MEDS ORDERED: ENOXAPARIN NA (PORCINE) 40 MG/0.4 ML DISP.SYRIN SQ SCH (10:00)
[2018-09-03] MEDS ORDERED: PROPOFOL 20 ML ONE ×2 (10:24→12:22)
[2018-09-03] MEDS ORDERED: MIDAZOLAM HCL 2 MG/2 ML SINGLE DOSE VIAL ONE (10:24)
[2018-09-03] MEDS ORDERED: SUCCINYLCHOLINE CHLORIDE 200 MG/10 ML VIAL ONE (10:31)
--- NOTE | 2018-09-03 11:40 | PN ---
Teaching Attending Note Name of Resident: Kristian Joseph ATTENDING PHYSICIAN STATEMENT I saw and evaluated the patient. I reviewed the resident's note and discussed the case with the resident. I agree with the resident's findings and plan as documented with exceptions below. SUBJECTIVE: Patient seen and examined. still with left sided abdominal pain. breathing improved, no new complaints otherwise. OBJECTIVE: Vital Signs Period Temp Pulse Resp BP Sys/Molina Pulse Ox Last 24 Hr 98.0 F-98.6 F 68-90 17-18 117-147/64-82 98-98 Intake & Output 08/31/18 09/01/18 09/02/18 09/03/18 23:59 23:59 23:59 23:59 Intake Total 350 1135 300 Balance 350 1135 300 Weight 142 lb 133 lb 136 lb General: lying in bed in no acute distress Chest; improved expiratory wheezing Abdomen:Soft, LMQ tenderness, no Left CVA tenderness elicited, NT otherwise, ND Extremities: no edema Home Medications Medication Instructions Recorded Cholecalciferol (Vitamin D3) 1,000 unit PO DAILY 12/18/17 [Vitamin D3 -] Cyanocobalamin (Vitamin B-12) 1,000 mcg PO DAILY 12/18/17 [Vitamin B-12] Metoprolol Tartrate 25 mg PO BID 12/18/17 Simvastatin 40 mg PO DAILY 12/18/17 metFORMIN HCL [Metformin HCl] 500 mg PO DAILY 12/18/17 Albuterol 0.083% Nebulizer Chrissie 1 amp NEB Q4H PRN #14 amp 08/30/18 [Ventolin 0.083% Nebulizer Soln -] Pantoprazole Sodium [Protonix -] 40 mg PO DAILY 14 Days #14 08/30/18 tablet.ec Prednisone [Deltasone] See Taper PO DAILY #20 tablet 08/30/18 Salmeterol/Fluticasone [Advair 1 inh PO BID 14 Days #1 diskus 08/30/18 100Mcg/50Mcg -] Active Medications Acetaminophen (Tylenol -) 650 mg PO Q4H PRN PRN Reason: PAIN LEVEL 6-10 Albuterol Sulfate (Ventolin 0.083% Nebulizer Soln -) 1 amp NEB Q4H PRN PRN Reason: SHORT OF BREATH/WHEEZING Albuterol/Ipratropium (Duoneb -) 1 amp NEB RQID [facility] Last Admin: 09/03/18 07:35 Dose: 1 amp Cholecalciferol (Vitamin D3 -) 1,000 unit PO DAILY [facility] Last Admin: 09/02/18 09:45 Dose: 1,000 unit Cyanocobalamin (Vitamin B12 -) 1,000 mcg PO DAILY [facility] Last Admin: 09/02/18 09:45 Dose: 1,000 mcg Ceftriaxone Sodium 1 gm/ (Dextrose) 50 mls @ 100 mls/hr IVPB DAILY [facility]; Protocol Last Admin: 09/03/18 09:38 Dose: 100 mls/hr Sodium Chloride (1/2 Normal Saline) 1,000 mls @ 75 mls/hr IV ASDIR [facility] Last Admin: 09/02/18 17:04 Dose: 75 mls/hr Insulin Aspart (Novolog Vial Sliding Scale -) 1 vial SQ ACHS [facility]; Protocol Last Admin: 09/03/18 06:21 Dose: Not Given Metoprolol Tartrate (Lopressor -) 25 mg PO BID [facility] Last Admin: 09/03/18 09:38 Dose: 25 mg Ondansetron HCl (Zofran Injection) 4 mg IVPUSH Q8H PRN PRN Reason: NAUSEA Pantoprazole Sodium (Protonix -) 40 mg PO DAILY [facility] Last Admin: 09/03/18 09:38 Dose: 40 mg Prednisone (Deltasone -) 60 mg PO DAILY [facility] Last Admin: 09/02/18 09:45 Dose: 60 mg Fluticasone/Salmeterol (Advair 100mcg/50mcg -) 1 puff IH BID [facility] Last Admin: 09/02/18 21:21 Dose: 1 puff Laboratory Results - last 24 hr 09/02/18 09/02/18 09/03/18 16:38 21:22 06:04 WBC RBC Hgb Hct MCV MCH MCHC RDW Plt Count MPV Absolute Neuts (auto) Neutrophils % Lymphocytes % Monocytes % Eosinophils % Basophils % Nucleated RBC % Sodium Potassium Chloride Carbon Dioxide Anion Gap BUN Creatinine Creat Clearance w eGFR POC Glucometer 331 181 150 Random Glucose Calcium Total Bilirubin AST ALT Alkaline Phosphatase Total Protein Albumin 09/03/18 09/03/18 07:10 07:10 WBC 34.2 H* RBC 3.84 Hgb 11.5 Hct 34.5 MCV 89.9 MCH 29.9 MCHC 33.3 RDW 14.3 Plt Count 165 MPV 9.5 Absolute Neuts (auto) 8.3 H Neutrophils % 24.2 L Lymphocytes % 74.2 H Monocytes % 1.5 L Eosinophils % 0.0 D Basophils % 0.1 Nucleated RBC % 0 Sodium 137 Potassium 3.9 Chloride 104 Carbon Dioxide 27 Anion Gap 6 L BUN 22 H Creatinine 0.9 Creat Clearance w eGFR 58.95 POC Glucometer Random Glucose 137 H Calcium 7.8 L Total Bilirubin 0.7 AST 11 L ALT 22 Alkaline Phosphatase 61 Total Protein 5.2 L Albumin 2.6 L Microbiology 09/01/18 05:40 Urine - Urine Clean Catch Urine Culture - Final NO GROWTH OBTAINED ASSESSMENT AND PLAN: 88 yof with PMHx of HTN, HLD, CLL, HFpEF, ODALIS, Remote breast ca s/p mastectomy, left nephrolithiasis s/p ureteral stent 02/2016, UTI with septic shock after stent removal in 05/2016, recently admitted to [facility] with Influenza A/Bronchitis/ UTI, treated with tamiflu/ceftriaxone, sent on prednisone taper on 08/30 admitted with left nephrolithiasis with hydronephrosis. -Left ureteral stone with hydronephrosis/Bladder stone -Recent Influenza A illness -Acute bronchitis -CLL -HFpEF -HTN -HLD -Remote Breast Ca s/p mastectomy Plan: For surgical intervention today, follow up. Ceftriaxone day 3, continue ange-procedure. Urine cx neg. vanco x 1 per-operatively given h/o MRSA bacteremia/septic shock post stent removal in the past. Renal function stable. hold lasix.Gentle hydration while NPO. Did not take her prednisone on d.c still with wheezing,continue taper. Standing and prn nebs. Hold metformin. ISS,diabetic diet. Continue metoprolol/statin. Code status: patient revoked DNR/DNI,wants everything done. Changed to full code. DVTPPx heparin, hold pre-op Disposition: d/c in 24 hours post procedure if no concerns. Cm consult to resume home VNS/PT on d.c Plan discussed with patient, nursing and CM, all questions answered.
--- NOTE | 2018-09-03 11:54 | OP ---
Operative Note - Note: Operative Date: 09/03/18 Pre-Operative Diagnosis: Left Hydronephrosis Operation: Cysto, Retro Ureteroscopy and stent placement Findings: Left [place]se[place] with UPJ obstruction Implants: Stent Post-Operative Diagnosis: Same as Pre-op Surgeon: Vangie Lee Anesthesia: General Operative Report Dictated: Yes
[2018-09-03] MEDS ORDERED: ONDANSETRON 4 MG/2 ML VIAL IVPUSH PRN (12:01)
--- NOTE | 2018-09-03 12:12 | PN ---
Physical Exam: SUBJECTIVE: Patient seen and examined seen before procedure: no new issues overnight. OBJECTIVE: Vital Signs Period Temp Pulse Resp BP Sys/Molina Pulse Ox Last 24 Hr 98.0 F-98.6 F 68-90 17-18 117-147/64-82 98-98 GENERAL: The patient is awake, alert, and fully oriented, in no acute distress. HEAD: Normal with no signs of trauma. ENT: dry mucous membranes. NECK: Trachea midline, full range of motion, supple. LUNGS: Breath sounds equal, clear to auscultation bilaterally, no wheezes, no crackles, no accessory muscle use. HEART: s1s2 normal ABDOMEN: Soft, nontender, nondistended, normoactive bowel sounds, left lumbar are a tenderness rebound, no hepatosplenomegaly, no masses. EXTREMITIES: 2+ pulses, warm, well-perfused, no edema. PSYCH: Normal mood, normal affect. SKIN: Warm, dry, Laboratory Results - last 24 hr 09/02/18 09/02/18 09/03/18 16:38 21:22 06:04 WBC RBC Hgb Hct MCV MCH MCHC RDW Plt Count MPV Absolute Neuts (auto) Neutrophils % Lymphocytes % Monocytes % Eosinophils % Basophils % Nucleated RBC % Sodium Potassium Chloride Carbon Dioxide Anion Gap BUN Creatinine Creat Clearance w eGFR POC Glucometer 331 181 150 Random Glucose Calcium Total Bilirubin AST ALT Alkaline Phosphatase Total Protein Albumin 09/03/18 09/03/18 07:10 07:10 WBC 34.2 H* RBC 3.84 Hgb 11.5 Hct 34.5 MCV 89.9 MCH 29.9 MCHC 33.3 RDW 14.3 Plt Count 165 MPV 9.5 Absolute Neuts (auto) 8.3 H Neutrophils % 24.2 L Lymphocytes % 74.2 H Monocytes % 1.5 L Eosinophils % 0.0 D Basophils % 0.1 Nucleated RBC % 0 Sodium 137 Potassium 3.9 Chloride 104 Carbon Dioxide 27 Anion Gap 6 L BUN 22 H Creatinine 0.9 Creat Clearance w eGFR 58.95 POC Glucometer Random Glucose 137 H Calcium 7.8 L Total Bilirubin 0.7 AST 11 L ALT 22 Alkaline Phosphatase 61 Total Protein 5.2 L Albumin 2.6 L Active Medications Generic Name Dose Route Start Last Admin Trade Name Freq PRN Reason Stop Dose Admin Acetaminophen 650 mg 09/01/18 16:18 Tylenol - PO Q4H PRN PAIN LEVEL 6-10 Albuterol Sulfate 1 amp 09/01/18 16:14 Ventolin 0.083% Nebulizer Soln - NEB Q4H PRN SHORT OF BREATH/WHEEZING Albuterol/Ipratropium 1 amp 09/01/18 20:00 09/03/18 11:15 Duoneb - NEB Not Given RQID ALYSIA Cholecalciferol 1,000 unit 09/02/18 10:00 09/02/18 09:45 Vitamin D3 - PO 1,000 unit DAILY ALYSIA Administration Cyanocobalamin 1,000 mcg 09/02/18 10:00 09/02/18 09:45 Vitamin B12 - PO 1,000 mcg DAILY ALYSIA Administration Fentanyl 25 mcg 09/03/18 12:01 Sublimaze Injection - IVPUSH 09/04/18 12:00 [id number] PRN PAIN-PACU ORDER X 4 DOSES ONLY Ceftriaxone Sodium 1 gm/ 50 mls @ 100 mls/hr 09/01/18 16:45 09/03/18 09:38 Dextrose IVPB 100 mls/hr DAILY ALYSIA Administration Protocol Sodium Chloride 1,000 mls @ 75 mls/hr 09/01/18 16:30 09/02/18 17:04 1/2 Normal Saline IV 75 mls/hr ASDIR ALYSIA Administration Lactated Ringer's 1,000 mls @ 75 mls/hr 09/03/18 12:15 Lactated Ringers Solution IV ASDIR ALYSIA Insulin Aspart 1 vial 09/01/18 16:30 09/03/18 06:21 Novolog Vial Sliding Scale - SQ Not Given ACHS [facility] Protocol Metoprolol Tartrate 25 mg 09/01/18 22:00 09/03/18 09:38 Lopressor - PO 25 mg BID ALYSIA Administration Ondansetron HCl 4 mg 09/01/18 16:18 Zofran Injection IVPUSH Q8H PRN NAUSEA Ondansetron HCl 4 mg 09/03/18 12:01 Zofran Injection IVPUSH 09/04/18 12:00 Q6H PRN NAUSEA AND/OR VOMITING Pantoprazole Sodium 40 mg 09/02/18 10:00 09/03/18 09:38 Protonix - PO 40 mg DAILY ALYSIA Administration Prednisone 60 mg 09/02/18 10:00 09/02/18 09:45 Deltasone - PO 60 mg DAILY ALYSIA Administration Fluticasone/Salmeterol 1 puff 09/01/18 22:00 09/02/18 21:21 Advair 100mcg/50mcg - IH 1 puff BID ALYSIA Administration Vancomycin HCl 1,000 mg 09/03/18 12:07 Vancomycin (Pre-Docked) IVPB 09/03/18 12:08 ONCE ONE Protocol ASSESSMENT/PLAN: CT A/P: In comparison to a prior exam of 04/07/2018 interval development of a 0.7 x 0.3 cm proximal left ureteral calculus is noted with resultant hydronephrosis. Note is also made of interval development of a 0.7 x 0.2 cm urinary bladder calculus. The current urinary bladder is approximately 500 mL - ? somewhat prominent physiologic distention versus mild/early retention. Correlate clinically. Sonography may be considered CXR: fluid in major fissure, no acute process EKG: NSR 78 ASSESSMENT/PLAN: 88 yof with PMHx of HTN, HLD, CLL, HFpEF, ODALIS, Remote breast ca s/p mastectomy, left nephrolithiasis s/p ureteral stent 02/2016, UTI with septic shock after stent removal in 05/2016, recently admitted to [facility] with Influenza A/Bronchitis/ UTI, treated with tamiflu/ceftriaxone, sent on prednisone taper on 08/30 admitted with left nephrolithiasis with hydronephrosis. -Left ureteral stone with hydronephrosis/Bladder stone continue IV fluid went for: Cysto, Retro Ureteroscopy and stent placement 09/03/18 continue IV antibiotics. we will give her one dose on vanco also as pt is immuno compromised and has instrumentation monitor intake/ output monitor vitals renal function stable -Recent Influenza A illness continue predisone taper keep s02> 90 continue nebulizer continue symbicort -CLL wbc 32.8 stable -HFpEF stable -HTN on metoprolol 25 bid -HLD -Remote Breast Ca s/p mastectomy DM bgm sliding scale fluid: lr 75 ml/hr electrolyte:repeat dariel am nutrition: diabetc diet gi pro: on protonix dvt pro: lovenox Visit type - Emergency Visit Emergency Visit: Yes ED Registration Date: 09/01/18 Care time: The patient presented to the Emergency Department on the above date and was hospitalized for further evaluation of their emergent condition. - New Patient This patient is new to me today: No - Critical Care Critical Care patient: No
[2018-09-03] MEDS ORDERED: VANCOMYCIN 1 GM in D5W (PRE-DOCKED) 1,000 MG/250 ML IVPB ONE (12:15)
[2018-09-03] MEDS ORDERED: predniSONE 20 MG TABLET (UD) PO SCH (12:16)
[2018-09-03] MEDS ORDERED: ROCURONIUM BROMIDE 50 MG/5 ML VIAL ONE (12:23)
[2018-09-03] MEDS ORDERED: VANCOMYCIN 1,000 MG VIAL (RESTRICTED TO ID ONLY) ONE (12:32)
[2018-09-03] MEDS: LACTATED RINGERS SOLUTION 1,000 ML IV SCH (12:45)
--- NOTE | 2018-09-03 13:14 | OP ---
DATE OF OPERATION: 09/03/2018 SURGEON: Vangie Lee MD ANESTHESIA: General. PREOPERATIVE DIAGNOSES: Left renal colic, left hydronephrosis, left ureteral calculus. POSTOPERATIVE DIAGNOSES: Left renal colic, left hydronephrosis, left ureteral calculus, ureteropelvic junction obstruction, left. PROCEDURE: Cystoscopy, left retrograde ureteroscopy, and stent placement. FINDINGS: Bladder normal. Left ureteral orifice was markedly dilated. Severe edema of the lower ureter noted. Left ureter was visualized in total and did not show any calculus. Then, the flexible scope was used to inspect the kidney, found to be totally devoid of any calculi, with marked UP junction obstruction. DESCRIPTION OF PROCEDURE: Patient, in lithotomy position and under anesthesia, was prepped and draped in the usual manner. Using a 22 scope, cystoscopy performed and findings were noted above. Then, a guidewire was placed in the right collecting system. Semi-rigid ureteroscopy was performed in the lower ureter with severe edema of the lower ureter with marked edema of the left ureteral orifice, but no calculi were visualized. Then, the flexible scope was used. Kidney was visualized. No stone was seen, except for severe obstruction at the UP junction. Then, with considerable difficulty, a guidewire was placed in the kidney and stent placed, confirmed with x-ray. Patient tolerated the procedure well and left the operating room in satisfactory condition. Alycia LEÓN/[id number]
[2018-09-03 14:02] LABS: ANISOCYTOSIS 1+; PLATELET ESTIMATE DECREASED
[2018-09-03] MEDS ORDERED: ACETAMINOPHEN 325 MG TABLET (FP) PO PRN (18:57)
[2018-09-03] MEDS ORDERED: ALBUTEROL SO4 0.083% IH SOL 2.5 MG/3 ML VIAL.NEB. NEB PRN (18:58)
[2018-09-03] MEDS ORDERED: ONDANSETRON 4 MG/2 ML VIAL IVPB PRN (19:01)
[2018-09-03] MEDS: POLYETHYLENE GLYCOL 3350 119 GM BTL PO SCH (19:23)
[2018-09-03] MEDS ORDERED: INSULIN (NOVOLOG) ASPART 100 UNITS/ML 10ML VIAL ONE (21:34)
[2018-09-03] MEDS: FLUTICASONE/SALMETEROL 100 MCG/50 MCG DISKUS IH SCH (22:17)
[2018-09-04] MEDS: LACTATED RINGERS SOLUTION 1,000 ML IV SCH ×2 (06:15→13:52)
[2018-09-04] MEDS: INSULIN SLIDING SCALE (NOVOLOG) 1 VIAL SQ SCH ×4 (06:19→21:54)
[2018-09-04] MEDS: ALBUTEROL SO4 2.5/IPRATROPIUM 0.5 INH SOL 3 ML VIAL.NEB. NEB SCH ×4 (07:00→20:10)
[2018-09-04 07:25] LABS: BASO % 0.4 % (0-2.0); EOS % 0.2 % (0-4.5); HEMOGLOBIN 12.1 GM/dL (10.7-15.3); MCH 30.6 pg (25.7-33.7); MCHC 33.6 g/dl (32.0-36.0); MEAN CELL VOLUME 90.9 fl (80-96); MEAN PLT VOLUME 9.2 fl (7.5-11.1); MONO % 1.6 % (3.8-10.2); NEUT % 26.8 % (42.8-82.8); PLATELET COUNT 148 K/MM3 (134-434); RBC 3.96 M/mm3 (3.60-5.2); RDW 14.7 % (11.6-15.6)
[2018-09-04 07:29] LABS: WHITE BLOOD COUNT 31.4 K/mm3 (4.0-10.0)
[2018-09-04 08:06] LABS: ANION GAP 6 MMOL/L (8-16); BLOOD UREA NITROGEN 20 mg/dL (7-18); CALCIUM 7.9 mg/dL (8.5-10.1); CHLORIDE 104 mmol/L (98-107); CO2 26 mmol/L (21-32); GLUCOSE,RANDOM 106 mg/dL (74-106); POTASSIUM 4.1 mmol/L (3.5-5.1); SODIUM 137 mmol/L (136-145)
[2018-09-04] MEDS ORDERED: DEXTROSE 5%-WATER - 50 ML IVPB ONE (09:35)
[2018-09-04] MEDS ORDERED: cefTRIAXone SODIUM 1 GM VIAL ONE (09:35)
[2018-09-04] MEDS: CEFTRIAXONE 1 GM in DEXTROSE 5%-WATER - 50 ML IVPB SCH (09:37)
[2018-09-04] MEDS: METOPROLOL TARTRATE 25 MG TABLET (FP) PO SCH ×2 (09:40→21:53)
[2018-09-04] MEDS: CYANOCOBALAMIN 1,000 MCG TABLET (FP) PO SCH (09:40)
[2018-09-04] MEDS: PANTOPRAZOLE 40 MG TABLET (FP) PO SCH (09:40)
[2018-09-04] MEDS: FLUTICASONE/SALMETEROL 100 MCG/50 MCG DISKUS IH SCH ×2 (09:41→21:54)
[2018-09-04] MEDS: POLYETHYLENE GLYCOL 3350 119 GM BTL PO SCH (10:03)
--- NOTE | 2018-09-04 10:08 | PN ---
Physical Exam: SUBJECTIVE: Patient seen and examined complaints of increase in frequency of micturation and burning micturation. afebrile overnight on ceftraxone 1gm daily urology procedure was done yesterday. OBJECTIVE: Vital Signs Period Temp Pulse Resp BP Sys/Molina Pulse Ox Last 24 Hr 97.4 F-98.7 F 65-87 16-20 108-155/53-87 97-100 GENERAL: The patient is awake, alert, and fully oriented, in no acute distress. HEAD: Normal with no signs of trauma. ENT: dry mucous membranes. NECK: Trachea midline, full range of motion, supple. LUNGS: Breath sounds equal, clear to auscultation bilaterally, no wheezes, no crackles, no accessory muscle use. HEART: s1s2 normal ABDOMEN: Soft, suprapubic tenderness , mild distension , normoactive bowel sounds, left lumbar tenderness decreased. rebound, no hepatosplenomegaly, no masses. EXTREMITIES: 2+ pulses, warm, well-perfused, no edema. PSYCH: Normal mood, normal affect. SKIN: Warm, dry, Laboratory Results - last 24 hr 09/03/18 09/03/18 09/03/18 07:10 17:18 22:12 WBC RBC Hgb Hct MCV MCH MCHC RDW Plt Count MPV Absolute Neuts (auto) Total Counted 100 Neutrophils % Neutrophils % (Manual) 24.0 L Band Neutrophils % 0.0 Lymphocytes % Lymphocytes % (Manual) 73.0 H Monocytes % Monocytes % (Manual) 3 L Eosinophils % Basophils % Nucleated RBC % Platelet Estimate Decreased Poikilocytosis 1+ Anisocytosis 1+ Microcytosis 1+ Rodrigo Cells 1+ Sodium Potassium Chloride Carbon Dioxide Anion Gap BUN Creatinine Creat Clearance w eGFR POC Glucometer 118 148 Random Glucose Calcium 09/04/18 09/04/18 09/04/18 06:18 07:00 07:00 WBC 31.4 H* RBC 3.96 Hgb 12.1 Hct 36.0 MCV 90.9 MCH 30.6 MCHC 33.6 RDW 14.7 Plt Count 148 MPV 9.2 Absolute Neuts (auto) 8.4 H Total Counted Neutrophils % 26.8 L Neutrophils % (Manual) Band Neutrophils % Lymphocytes % 71.0 H Lymphocytes % (Manual) Monocytes % 1.6 L Monocytes % (Manual) Eosinophils % 0.2 D Basophils % 0.4 D Nucleated RBC % 0 Platelet Estimate Poikilocytosis Anisocytosis Microcytosis Rodrigo Cells Sodium 137 Potassium 4.1 Chloride 104 Carbon Dioxide 26 Anion Gap 6 L BUN 20 H Creatinine 1.0 Creat Clearance w eGFR 52.20 POC Glucometer 116 Random Glucose 106 Calcium 7.9 L Active Medications Generic Name Dose Route Start Last Admin Trade Name Freq PRN Reason Stop Dose Admin Acetaminophen 650 mg 09/03/18 18:57 Tylenol - PO Q4H PRN PAIN Albuterol Sulfate 1 amp 09/03/18 18:58 Ventolin 0.083% Nebulizer Soln - NEB Q4H PRN SHORT OF BREATH/WHEEZING Albuterol/Ipratropium 1 amp 09/03/18 20:00 09/04/18 07:00 Duoneb - NEB 1 amp RQID ALYSIA Administration Cyanocobalamin 1,000 mcg 09/04/18 10:00 09/04/18 09:40 Vitamin B12 - PO 1,000 mcg DAILY ALYSIA Administration Fentanyl 25 mcg 09/03/18 12:01 Sublimaze Injection - IVPUSH 09/04/18 12:00 [id number] PRN PAIN-PACU ORDER X 4 DOSES ONLY Lactated Ringer's 1,000 mls @ 75 mls/hr 09/03/18 12:15 09/04/18 06:15 Lactated Ringers Solution IV 75 mls/hr ASDIR ALYSIA Administration Ceftriaxone Sodium 1 gm/ 50 mls @ 100 mls/hr 09/04/18 10:00 09/04/18 09:37 Dextrose IVPB 100 mls/hr DAILY ALYSIA Administration Protocol Insulin Aspart 1 vial 09/03/18 22:00 09/04/18 06:19 Novolog Vial Sliding Scale - SQ Not Given ACHS [facility] Protocol Metoprolol Tartrate 25 mg 09/03/18 22:00 09/04/18 09:40 Lopressor - PO 25 mg BID ALYSIA Administration Ondansetron HCl 4 mg 09/03/18 19:01 Zofran Injection IVPB Q6H PRN NAUSEA Pantoprazole Sodium 40 mg 09/04/18 10:00 09/04/18 09:40 Protonix - PO 40 mg DAILY ALYSIA Administration Polyethylene Glycol 17 gm 09/03/18 19:15 09/04/18 10:03 Miralax (For Daily Use) - PO Not Given DAILY ALYSIA Prednisone 40 mg 09/04/18 10:04 Deltasone - PO DAILY ALYSIA Fluticasone/Salmeterol 1 puff 09/03/18 22:00 09/04/18 09:41 Advair 100mcg/50mcg - IH 1 puff BID ALYSIA Administration ASSESSMENT/PLAN: CT A/P: In comparison to a prior exam of 04/07/2018 interval development of a 0.7 x 0.3 cm proximal left ureteral calculus is noted with resultant hydronephrosis. Note is also made of interval development of a 0.7 x 0.2 cm urinary bladder calculus. The current urinary bladder is approximately 500 mL - ? somewhat prominent physiologic distention versus mild/early retention. Correlate clinically. Sonography may be considered CXR: fluid in major fissure, no acute process EKG: NSR 78 ASSESSMENT/PLAN: 88 yof with PMHx of HTN, HLD, CLL, HFpEF, ODALIS, Remote breast ca s/p mastectomy, left nephrolithiasis s/p ureteral stent 02/2016, UTI with septic shock after stent removal in 05/2016, recently admitted to [facility] with Influenza A/Bronchitis/ UTI, treated with tamiflu/ceftriaxone, sent on prednisone taper on 08/30 admitted with left nephrolithiasis with hydronephrosis. -Left ureteral stone with hydronephrosis/Bladder stone continue IV fluid went for: Cysto, Retro Ureteroscopy and stent placement 09/03/18 continue IV antibiotics. ceftriaxone repeat ua, cx as pt has suprapbic discomfort and increase in frequency with urine incontinence. get bladder scan to check urine retention and xray kub to look for position of stent. monitor intake/ output monitor vitals renal function stable -Recent Influenza A illness continue predisone taper 40mg today keep s02> 90 continue nebulizer continue symbicort -CLL wbc 32.8 stable follow your own oncologist -HFpEF stable -HTN on metoprolol 25 bid -HLD -Remote Breast Ca s/p mastectomy DM bgm sliding scale fluid: lr 50 ml/hr electrolyte:repeat dariel am nutrition: diabetc diet ate 50 % today gi pro: on protonix dvt pro: lovenox Visit type - Emergency Visit Emergency Visit: Yes ED Registration Date: 09/01/18 Care time: The patient presented to the Emergency Department on the above date and was hospitalized for further evaluation of their emergent condition. - New Patient This patient is new to me today: No - Critical Care Critical Care patient: No
[2018-09-04] MEDS ORDERED: INSULIN (NOVOLOG) ASPART 100 UNITS/ML 10ML VIAL ONE (11:08)
[2018-09-04] MEDS ORDERED: POLYETHYLENE GLYCOL 3350 119 GM BTL PO ONE (11:15)
[2018-09-04] MEDS: TAMSULOSIN HCL 0.4 MG CAP PO SCH (13:49)
--- NOTE | 2018-09-04 14:56 | PN ---
Teaching Attending Note Name of Resident: Kristian Joseph ATTENDING PHYSICIAN STATEMENT I saw and evaluated the patient. I reviewed the resident's note and discussed the case with the resident. I agree with the resident's findings and plan as documented. SUBJECTIVE: Ms Webb says she is doing well today. Says she urinates when she stands or moves. She says she feels it but when she stands she urinates. Denies cp, sob, n/v. OBJECTIVE: Last Vital Signs Temp Pulse Resp BP Pulse Ox 37.2 C 85 18 128/70 96 09/04/18 13:56 09/04/18 13:56 09/04/18 09:29 09/04/18 13:56 09/04/18 09:00 Gen: nad Pulm: ctab w/o w/r/r CV: rrr w/o m/r/g Abd: +bs, s/nt/nd Ext: no c/c/e CBC, BMP 09/04/18 07:00 09/04/18 07:00 ASSESSMENT AND PLAN: -patient with retention, suspect secondary to procedure -otherwise says she is feeling fine -placed on flomax -continue prednisone -follow up KUB -continue current management -may need gaona for short term -if does need gaona, may need short time in SNF secondary to being blind and risk of mechanical fall Problem List - Problems (1) Hydronephrosis with renal and ureteral calculus obstruction Code(s): N13.2 - HYDRONEPHROSIS WITH RENAL AND URETERAL CALCULOUS OBSTRUCTION (2) Acute kidney injury Code(s): N17.9 - ACUTE KIDNEY FAILURE, UNSPECIFIED (3) CHF (congestive heart failure) Code(s): I50.9 - HEART FAILURE, UNSPECIFIED Qualifiers: Heart failure type: diastolic Heart failure chronicity: chronic Qualified Code(s): I50.32 - Chronic diastolic (congestive) heart failure (4) COPD exacerbation Code(s): J44.1 - CHRONIC OBSTRUCTIVE PULMONARY DISEASE W (ACUTE) EXACERBATION (5) Diabetes Code(s): E11.9 - TYPE 2 DIABETES MELLITUS WITHOUT COMPLICATIONS Qualifiers: Diabetes mellitus type: type 2 Diabetes mellitus terminal clerk insulin use: without terminal clerk use Diabetes mellitus complication status: with unspecified complications Qualified Code(s): E11.8 - Type 2 diabetes mellitus with unspecified complications (6) HLD (hyperlipidemia) Code(s): E78.5 - HYPERLIPIDEMIA, UNSPECIFIED Qualifiers: Hyperlipidemia type: unspecified Qualified Code(s): E78.5 - Hyperlipidemia , unspecified (7) HTN (hypertension) Code(s): I10 - ESSENTIAL (PRIMARY) HYPERTENSION Qualifiers: Hypertension type: essential hypertension Qualified Code(s): I10 - Essential (primary) hypertension
[2018-09-04 15:07] LABS: ANISOCYTOSIS 1+
[2018-09-04 19:30] LABS: URINE APPEARANCE CLEAR; URINE BILIRUBIN NEGATIVE (<2.0 mg/dL); URINE COLOR STRAW; URINE GLUCOSE (UA) 3+ (NEGATIVE); URINE KETONE NEGATIVE (NEGATIVE); URINE LEUK ESTERASE 1+ (NEGATIVE); URINE NITRITE NEGATIVE (NEGATIVE); URINE PROTEIN NEGATIVE (NEGATIVE); URINE UROBILINOGEN NEGATIVE mg/dL (0.2-1.0)
[2018-09-04 19:35] LABS: EPI CELLS RARE /HPF (FEW); URINE BACTERIA FEW /hpf (NONE SEEN)
[2018-09-05] MEDS: INSULIN SLIDING SCALE (NOVOLOG) 1 VIAL SQ SCH (06:17)
[2018-09-05] MEDS ORDERED: INSULIN (NOVOLOG) ASPART 100 UNITS/ML 10ML VIAL ONE (06:38)
[2018-09-05 07:59] LABS: ALBUMIN 2.2 g/dl (3.4-5.0); ALK PHOS 51 U/L (45-117); ANION GAP 9 MMOL/L (8-16); BILIRUBIN,TOTAL 0.4 mg/dL (0.2-1); BLOOD UREA NITROGEN 17 mg/dL (7-18); CALCIUM 7.4 mg/dL (8.5-10.1); CHLORIDE 104 mmol/L (98-107); CO2 24 mmol/L (21-32); CREATININE 0.8 mg/dL (0.55-1.3); GLUCOSE,RANDOM 142 mg/dL (74-106); POTASSIUM 3.9 mmol/L (3.5-5.1); SGOT/AST 5 U/L (15-37); SGPT/ALT 16 U/L (13-61); SODIUM 137 mmol/L (136-145); TOT PROT 4.3 g/dl (6.4-8.2)
[2018-09-05] MEDS ORDERED: TAMSULOSIN HCL 0.4 MG CAP PO SCH (08:30)
[2018-09-05] MEDS: TAMSULOSIN HCL 0.4 MG CAP PO SCH (08:52)
[2018-09-05] MEDS: ALBUTEROL SO4 2.5/IPRATROPIUM 0.5 INH SOL 3 ML VIAL.NEB. NEB SCH (08:53)
[2018-09-05 09:16] VITALS: BP 122/62; PULSE 93; TEMP 98.3
[2018-09-05] MEDS ORDERED: cefTRIAXone SODIUM 1 GM VIAL ONE (09:48)
[2018-09-05] MEDS ORDERED: DEXTROSE 5%-WATER - 50 ML IVPB ONE (09:48)
[2018-09-05] MEDS: METOPROLOL TARTRATE 25 MG TABLET (FP) PO SCH (09:52)
[2018-09-05] MEDS: CYANOCOBALAMIN 1,000 MCG TABLET (FP) PO SCH (09:52)
[2018-09-05] MEDS: PANTOPRAZOLE 40 MG TABLET (FP) PO SCH (09:52)
[2018-09-05] MEDS: FLUTICASONE/SALMETEROL 100 MCG/50 MCG DISKUS IH SCH (09:54)
[2018-09-05] MEDS: POLYETHYLENE GLYCOL 3350 119 GM BTL PO SCH (09:55)
[2018-09-05] MEDS: CEFTRIAXONE 1 GM in DEXTROSE 5%-WATER - 50 ML IVPB SCH (09:55)
[2018-09-05] MEDS: LACTATED RINGERS SOLUTION 1,000 ML IV SCH (09:56)
[2018-09-05] MEDS ORDERED: predniSONE 20 MG TABLET (UD) PO SCH (10:00)
--- NOTE | 2018-09-05 11:45 | DS ---
Physical Exam: SUBJECTIVE: Patient seen and examined no new issues overnight. No more urine incontinence no suprapubic pain 'tolerating feed. OBJECTIVE: Vital Signs Period Temp Pulse Resp BP Sys/[place]olina Pulse Ox Last 24 Hr 97.8 F-98.9 F 73-93 18-20 108-142/58-83 95 PHYSICAL EXAM GENERAL: The patient is awake, alert, and fully oriented, in no acute distress. HEAD: Normal with no signs of trauma. ENT: dry mucous membranes. NECK: Trachea midline, full range of motion, supple. LUNGS: Breath sounds equal, clear to auscultation bilaterally, no wheezes, no crackles, no accessory muscle use. HEART: s1s2 normal ABDOMEN: Soft, suprapubic tenderness , mild distension , normoactive bowel sounds, left lumbar tenderness decreased. rebound, no hepatosplenomegaly, no masses. EXTREMITIES: 2+ pulses, warm, well-perfused, no edema. PSYCH: Normal mood, normal affect. SKIN: Warm, dry LABS Laboratory Results - last 24 hr 09/04/18 09/04/18 09/04/18 07:00 17:15 17:20 WBC Corrected WBC (auto) RBC Hgb Hct MCV MCH MCHC RDW Plt Count MPV Absolute Neuts (auto) Total Counted 100 Neutrophils % Neutrophils % (Manual) 28.0 L Band Neutrophils % 0.0 Lymphocytes % Lymphocytes % (Manual) 70.0 H Monocytes % Monocytes % (Manual) 2 L Eosinophils % Basophils % Nucleated RBC % Platelet Estimate Platelet Comment Anisocytosis 1+ Microcytosis 1+ Sodium Potassium Chloride Carbon Dioxide Anion Gap BUN Creatinine Creat Clearance w eGFR POC Glucometer 347 Random Glucose Calcium Total Bilirubin AST ALT Alkaline Phosphatase Total Protein Albumin Urine Color Straw Urine Appearance Clear Urine pH 6.0 Ur Specific [place] 1.003 L Urine Protein Negative Urine Glucose (UA) 3+ H Urine Ketones Negative Urine Blood 3+ H Urine Nitrite Negative Urine Bilirubin Negative Urine Urobilinogen Negative Ur Leukocyte Esterase 1+ H Urine WBC (Auto) 10 Urine RBC (Auto) 6 Ur Epithelial Cells Rare Urine Bacteria Few 09/04/18 09/05/18 09/05/18 21:00 05:52 06:50 WBC Cancelled Corrected WBC (auto) Cancelled RBC Cancelled Hgb Cancelled Hct Cancelled MCV Cancelled MCH Cancelled MCHC Cancelled RDW Cancelled Plt Count Cancelled MPV Cancelled Absolute Neuts (auto) Cancelled Total Counted Neutrophils % Cancelled Neutrophils % (Manual) Band Neutrophils % Lymphocytes % Cancelled Lymphocytes % (Manual) Monocytes % Cancelled Monocytes % (Manual) Eosinophils % Cancelled Basophils % Cancelled Nucleated RBC % Cancelled Platelet Estimate Cancelled Platelet Comment Cancelled Anisocytosis Microcytosis Sodium Potassium Chloride Carbon Dioxide Anion Gap BUN Creatinine Creat Clearance w eGFR POC Glucometer 275 175 Random Glucose Calcium Total Bilirubin AST ALT Alkaline Phosphatase Total Protein Albumin Urine Color Urine Appearance Urine pH Ur Specific [place] Urine Protein Urine Glucose (UA) Urine Ketones Urine Blood Urine Nitrite Urine Bilirubin Urine Urobilinogen Ur Leukocyte Esterase Urine WBC (Auto) Urine RBC (Auto) Ur Epithelial Cells Urine Bacteria 09/05/18 06:50 WBC Corrected WBC (auto) RBC Hgb Hct MCV MCH MCHC RDW Plt Count MPV Absolute Neuts (auto) Total Counted Neutrophils % Neutrophils % (Manual) Band Neutrophils % Lymphocytes % Lymphocytes % (Manual) Monocytes % Monocytes % (Manual) Eosinophils % Basophils % Nucleated RBC % Platelet Estimate Platelet Comment Anisocytosis Microcytosis Sodium 137 Potassium 3.9 Chloride 104 Carbon Dioxide 24 Anion Gap 9 BUN 17 Creatinine 0.8 Creat Clearance w eGFR > 60 POC Glucometer Random Glucose 142 H Calcium 7.4 L Total Bilirubin 0.4 AST 5 L ALT 16 Alkaline Phosphatase 51 Total Protein 4.3 L Albumin 2.2 L Urine Color Urine Appearance Urine pH Ur Specific [place] Urine Protein Urine Glucose (UA) Urine Ketones Urine Blood Urine Nitrite Urine Bilirubin Urine Urobilinogen Ur Leukocyte Esterase Urine WBC (Auto) Urine RBC (Auto) Ur Epithelial Cells Urine Bacteria Microbiology 09/01/18 05:40 Urine - Urine Clean Catch Urine Culture - Final NO GROWTH OBTAINED Clinical information: diffuse abdominal pain, left side more than right Multiplanar imaging was performed following the intravenous administration of nonionic contrast. Enteric contrast was not administered. In comparison to a prior CT exam of 04/07/2018 interval development of an approximately 0.7 x 0.3 cm proximal left ureteral calculus is noted 2 cm from the level of the ureteropelvic junction. There is resultant development of moderate hydronephrosis. The previous exam had demonstrated underlying mild to moderate dilatation of the left renal collecting system which appears to been chronic at that time. Evaluation for small bilateral nonobstructing calculi is somewhat difficult on the current exam due to extruded contrast. There is no longer visualization of a lala shaped calculus within a lower pole calyx of the left kidney which presumably represents the current ureteral calculus. Interval appearance of a 0.7 x 0.2 cm calculus is seen along within the urinary bladder lumen layering along the right posterior wall. This calculus appears similar to a left renal lower pole calculus noted on the 2018 CT study and is presumably on the basis of interval passage. The remainder of the exam demonstrates no obvious interval change. No evidence of pneumoperitoneum, free intraperitoneal fluid, abscess or bowel obstruction. Status post cholecystectomy. No definite biliary tract dilatation is noted. Absent uterus versus atrophic uterus. Small hiatal hernia. The liver, spleen, pancreas, and adrenal glands demonstrate no definite abnormality. There is no aortic aneurysm. No discrete lymphadenopathy is identified. Pericecal surgical clips. No CT evidence of acute appendicitis or diverticulitis. Bilateral inguinal surgical clips are noted. Sigmoid diverticulosis is seen without evidence of acute diverticulitis. No gross noncontrast small bowel pathology is seen. IMPRESSION: In comparison to a prior exam of 04/07/2018 interval development of a 0.7 x 0.3 cm proximal left ureteral calculus is noted with resultant hydronephrosis. Note is also made of interval development of a 0.7 x 0.2 cm urinary bladder calculus. The current urinary bladder is approximately 500 mL - ? somewhat prominent physiologic distention versus mild/early retention. Correlate clinically. Sonography may be considered HOSPITAL COURSE:88 yof with PMHx of HTN, HLD, CLL, HFpEF, ODALIS, Remote breast ca s/p mastectomy,legally blind, left nephrolithiasis s/p ureteral stent 02/2016, UTI with septic shock after stent removal in 05/2016, recently admitted to [facility] with Influenza A/Bronchitis/UTI, treated with tamiflu/ceftriaxone, sent on prednisone taper on 08/30, comes back with left sided abdominal pain radiating to left flank, similar to prior kidney stone, prompting her to come to ED. reports some dysuria. Reports has chronic left sided abdominal pain, which got worse over last 2 days. Also since her discharge, picked up her prednisone, but has not taken it as was not sure how to take it and was waiting for [facility] to come home and direct her today. Has only been taking her metoprolol and metformin. 12 point ROS done, weakness since her recent d.c. Positive for constipation. Examination and investigations were done. Urology was consulted and pt underwent procedure on 07/03/19 Cystoscopy , Retro Ureteroscopy and stent placement. Now pt is feeling better. No lumbar pain, no suprapubic pain. Pt is toleratinf oral feed. Pt is dc home on po antibiotics( keflex) with [facility]. Visiting nurse will be arranged by medical social worker. follow up with your pcp with in one week Follow up with urology Dr lacey Drink plenty of liquid. Take antibiotics as prescribed You are on a short course of steroid because of wheezing after viral infection. Take all off your other medications as you were taking it before. If you develop pain abdomen, nausea, vomiting, fever and chills. Call MD or go to hospital. Date of Admission:09/01/18 Date of Discharge: 09/05/18 Discharge Summary Reason For Visit: HYDRONEPHROSIS W/RENAL & URETERAL CALCULUS OBSTRUC Current Active Problems Hydronephrosis with renal and ureteral calculus obstruction (Acute) Condition: Stable - Instructions Diet, Activity, Other Instructions: You were in a hospital because ob obstrucive stone in ureter and you under went a procedure Cystoscopy , Retro Ureteroscopy and stent placement follow up with your pcp with in one week Follow up with urology Dr lacey Drink plenty of liquid. Take antibiotics as prescribed You are on a short course of steroid because of wheezing after viral infection. Take all off your other medications as you were taking it before. If you develop pain abdomen, nausea, vomiting, fever and chills. Call MD or go to hospital. Referrals: Wilbert Morgan MD [Staff Physician] - 1 Week Vangie Lee MD [Staff Physician] - 2 Weeks Disposition: [facility]/HOME HEALTH CARE - Home Medications Comprehensive Discharge Medication List: Ambulatory Orders Cholecalciferol (Vitamin D3) [Vitamin D3 -] 1,000 unit PO DAILY 12/18/17 Cyanocobalamin (Vitamin B-12) [Vitamin B-12] 1,000 mcg PO DAILY 12/18/17 Metoprolol Tartrate 25 mg PO BID 12/18/17 Simvastatin 40 mg PO DAILY 12/18/17 metFORMIN HCL [Metformin HCl] 500 mg PO DAILY 12/18/17 Albuterol 0.083% Nebulizer Chrissie [Ventolin 0.083% Nebulizer Soln -] 1 amp NEB Q4H PRN #14 amp 02/15/19 Pantoprazole Sodium [Protonix -] 40 mg PO DAILY 14 Days #14 tablet.ec 08/30/18 Salmeterol/Fluticasone [Advair 100Mcg/50Mcg -] 1 inh PO BID 14 Days #1 diskus Cephalexin Monohydrate [Keflex -] 500 mg PO BID #10 capsule 09/05/18 predniSONE [Deltasone -] 10 mg PO DAILY #3 tablet 09/05/18
--- NOTE | 2018-09-05 14:56 | PN ---
Teaching Attending Note Name of Resident: Kristian Joseph ATTENDING PHYSICIAN STATEMENT I saw and evaluated the patient. I reviewed the resident's note and discussed the case with the resident. I agree with the resident's findings and plan as documented. SUBJECTIVE: Ms Webb is without complaint and asking to go home. Denies cp, sob, n/v. OBJECTIVE: Last Vital Signs Temp Pulse Resp BP Pulse Ox 36.8 C 93 H 20 122/62 94 L 09/05/18 09:15 09/05/18 09:15 09/05/18 09:15 09/05/18 09:15 09/05/18 09:20 Gen: nad Pulm: ctab w/o w/r/r CV: rrr w/o m/r/g Abd: +bs, s/nt/nd Ext: no c/c/e CBC, BMP 09/05/18 06:50 09/05/18 06:50 ASSESSMENT AND PLAN: -patient doing well today -stable to discharge home with home [facility] Problem List - Problems (1) Hydronephrosis with renal and ureteral calculus obstruction Code(s): N13.2 - HYDRONEPHROSIS WITH RENAL AND URETERAL CALCULOUS OBSTRUCTION (2) Acute kidney injury Code(s): N17.9 - ACUTE KIDNEY FAILURE, UNSPECIFIED (3) CHF (congestive heart failure) Code(s): I50.9 - HEART FAILURE, UNSPECIFIED Qualifiers: Heart failure type: diastolic Heart failure chronicity: chronic Qualified Code(s): I50.32 - Chronic diastolic (congestive) heart failure (4) COPD exacerbation Code(s): J44.1 - CHRONIC OBSTRUCTIVE PULMONARY DISEASE W (ACUTE) EXACERBATION (5) Diabetes Code(s): E11.9 - TYPE 2 DIABETES MELLITUS WITHOUT COMPLICATIONS Qualifiers: Diabetes mellitus type: type 2 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
== END 2018-09-05 14:00 | disposition home health service (06) | DRG 660 ==
LOC: JER 05:09 → JERBED 12:16 → J6S 15:40
PROVIDERS: ADMIT Hospitalist; ATTEND Internal Medicine
PROC: 0T778DZ Dilation of Left Ureter with Intraluminal Device, Via Natural or Artificial Opening Endoscopic (ICD-10-PCS; principal; 2018-09-03 14:00)
DX: N13.2 Hydronephrosis with renal and ureteral calculous obstruction (principal); I50.32 Chronic diastolic (congestive) heart failure; C91.10 Chronic lymphocytic leukemia of B-cell type not having achieved remission; J44.1 Chronic obstructive pulmonary disease with (acute) exacerbation; G47.33 Obstructive sleep apnea (adult) (pediatric); N21.0 Calculus in bladder; H54.8 Legal blindness, as defined in USA; E78.5 Hyperlipidemia, unspecified; J20.9 Acute bronchitis, unspecified; E11.9 Type 2 diabetes mellitus without complications; N17.9 Acute kidney failure, unspecified; I11.0 Hypertensive heart disease with heart failure
CPT/HCPCS: 36415; 71046-TC-FY; 74018-TC-FY; 74177-TC; 80048; 80053; 81003; 81015; 82550; 82962; 83605; 83690; 83735; 84100; 84484; 85025; 85610; 86850; 86900; 86901; 87086; 93005; 93010; 94640; 94760; 97116-GP; 97161-GP; 99285-25